=== PATIENT | male | born 1970 | race Hispanic/Latino ===

== ENCOUNTER 2017-04-01 11:58 | Inpatient (IN) | payer OTHER ==
[2017-04-01] MEDS ORDERED: Multivitamin (MVI) 10 ML, Thiamine 100 MG, Folic Acid 1 MG in Sodium Chloride 0.9% 1,00... IV ONE (12:51)
[2017-04-01 12:52] VITALS: BMI 22.4
[2017-04-01] MEDS ORDERED: Labetalol 5 mg/ml Inj 20ML IV STA (12:56)
[2017-04-01] MEDS ORDERED: Labetalol 5 mg/ml Inj 20ML IVP ONE (13:04)
[2017-04-01 13:54] LABS: BASO # 0.09 K/mm3 (0.0-2.0); BASO % 0.7 % (0.0-3.0); EOS # 0.1 (0.0-0.7); EOS % 0.5 % (1.5-5.0); GRAN # 8.22 (1.4-6.5); GRAN % 64.4 % (50.0-68.0); HEMOGLOBIN 16.2 g/dL (14.0-18.0); LYMPH # 3.3 (1.2-3.4); LYMPH % 25.6 % (22.0-35.0); MEAN CELL VOLUME 88.2 fl (80.0-105.0); MEAN CORPUSCULAR HEMOGLOBIN 31.8 pg (25.0-35.0); MEAN CORPUSCULAR HGB CONC 36.1 g/dl (31.0-37.0); MEAN PLATELET VOLUME 9.5 fl (7.0-11.0); MONO # 1.1 (0.1-0.6); MONO % 8.8 % (1.0-6.0); RBC 5.09 10^6/uL (3.5-6.1); RED CELL DISTRIBUTION WIDTH 13.5 % (11.5-14.5); WHITE BLOOD COUNT 12.8 10^3/ul (4.5-11.0)
--- NOTE | 2017-04-01 13:54 | ED PDOC ---
Arrival/HPI - General Chief Complaint: Alcohol Ingestion Time Seen by Provider: 04/01/17 12:48 Historian: Patient - History of Present Illness Narrative History of Present Illness (Text): 04/01/17 13:53 46yo male with PMHx of hypertension, alcohol abuse and anxiety present with complaint of dizziness, tremor, nausea. states he drank for a week straight and then try to stop, thinks he is withdrawing. States he came before it gets worse. States he usually gets bad withdrawal symptoms. He states his last alcohol was 2hours ago. He denies chest pain, SOB, diaphoresis, any other complaint. Past Medical History - Provider Review Nursing Documentation Reviewed: Yes - Infectious Disease Hx of Infectious Diseases: None - Cardiac Hx Hypertension: Yes - Pulmonary Hx Tuberculosis: No - Neurological HX Cerebrovascular Accident: No Hx Seizures: No - Hematological/Oncological Hx Cancer: No - Genitourinary/Gynecological Hx Sexually Transmitted Diseases: No - Psychiatric Hx Anxiety: Yes Hx Depression: Yes Hx Substance Use: Yes Other/Comment: Alcohol abuse - Surgical History Hx Breast Biopsy: Yes Hx Orthopedic Surgery: Yes (RT [facility]) - Anesthesia Hx Anesthesia: Yes Hx Anesthesia Reactions: No Family/Social History - Physician Review Nursing Documentation Reviewed: Yes Family/Social History: Unknown Family HX Smoking Status: Heavy Smoker > 10 Cigarettes Daily Hx Alcohol Use: Yes Hx Substance Use: Yes Substance used: Cocaine on sunday Allergies/Home Meds Allergies/Adverse Reactions: Allergies No Known Allergies Allergy (Verified 04/01/17 12:58) Home Medications: Home Meds Medication Instructions Recorded Confirmed Venlafaxine [Effexor XR] 1 tab PO DAILY 06/21/16 06/21/16 Gabapentin [Neurontin] 300 mg PO Q6 04/01/17 04/01/17 Propranolol [Inderal] 20 mg PO TID 04/01/17 04/01/17 cloNIDine [clonidine HCl] 0.1 mg PO TID 04/01/17 04/01/17 hydrALAZINE [Apresoline] 1 tab PO BID 04/01/17 04/01/17 Review of Systems - Physician Review All systems were reviewed & negative as marked: Yes - Review of Systems Constitutional: Normal Eyes: Normal ENT: Normal Respiratory: Normal Cardiovascular: Normal Gastrointestinal: Nausea. absent: Abdominal Pain, Constipation, Diarrhea, Vomiting, Hematochezia, Hematemesis Genitourinary Male: Normal Musculoskeletal: Normal Skin: Normal Neurological: Dizziness Endocrine: Normal Hemo/Lymphatic: Normal Psychiatric: Normal Physical Exam Vital Signs Reviewed: Yes Vital Signs Temp Pulse Resp BP Pulse Ox 04/01/17 16:22 98 F 75 20 164/98 H 98 04/01/17 16:09 100 H 160/102 H 04/01/17 16:06 106 H 168/106 H 04/01/17 15:47 87 180/110 H 04/01/17 15:10 75 160/100 H 04/01/17 14:01 108/105 H 04/01/17 13:54 79 202/102 H 04/01/17 13:40 98.8 F 79 20 202/109 H 99 Temperature: Afebrile Blood Pressure: Hypertensive Pulse: Regular Respiratory Rate: Normal Appearance: Positive for: Well-Appearing, Non-Toxic, Comfortable Pain Distress: None Mental Status: Positive for: Alert and Oriented X 3 - Systems Exam Head: Present: Atraumatic, Normocephalic Pupils: Present: PERRL Extroacular Muscles: Present: EOMI Conjunctiva: Present: Normal Mouth: Present: Moist Mucous Membranes Neck: Present: Normal Range of Motion Respiratory/Chest: Present: Clear to Auscultation, Good Air Exchange. No: Respiratory Distress, Accessory Muscle Use Cardiovascular: Present: Regular Rate and Rhythm, Normal S1, S2. No: Murmurs Abdomen: Present: Normal Bowel Sounds. No: Tenderness, Distention, Peritoneal Signs Back: Present: Normal Inspection Upper Extremity: Present: Normal Inspection. No: Cyanosis, Edema Lower Extremity: Present: Normal Inspection. No: Edema Neurological: Present: GCS=15, CN II-XII Intact, Speech Normal Skin: Present: Warm, Dry, Normal Color. No: Rashes Psychiatric: Present: Alert, Oriented x 3, Normal Insight, Normal Concentration Medical Decision Making ED Course and Treatment: 04/01/17 19:55 PT present tachy and hypertensive. he was withdrawing from alcohol. Lab was unremarkable. Pt will be admitted. His BP was fairly controlled with antihypertensvie. Case was DW Dr. Ashton and he accepted pt tp his service. EKG sinus tachy @ 123bpm - Lab Interpretations Lab Results: 04/01/17 13:35 04/01/17 13:35 Lab Results 04/01/17 13:35: Urine Opiates Screen Negative, Urine Methadone Screen Negative, Ur Barbiturates Screen Negative, Ur Phencyclidine Scrn Negative, Ur Amphetamines Screen Negative, U Benzodiazepines Scrn Negative, U Oth Cocaine Metabols Negative, U Cannabinoids Screen Negative 04/01/17 13:35: Alcohol, Quantitative 200 H 04/01/17 13:35: Salicylates < 1 L, Acetaminophen < 10.0 L 04/01/17 13:35: Sodium 138, Potassium 3.5 L, Chloride 93 L, Carbon Dioxide 28, Anion Gap 21 H, BUN 9, Creatinine 0.8, Est GFR ( Amer) > 60, Est GFR (Non -Af Amer) > 60, Random Glucose 114 H, Calcium 9.5, Total Bilirubin 0.8, AST 44, ALT 46, Alkaline Phosphatase 88, Lactate Dehydrogenase 674, Total Creatine Kinase 76, Troponin I 0.02, Total Protein 7.5, Albumin 4.6, Globulin 3.0, Albumin/Globulin Ratio 1.5 04/01/17 13:35: Urine Color Yellow, Urine Appearance Clear, Urine pH 6.5, Ur Specific [place] 1.010, Urine Protein Trace H, Urine Glucose (UA) Negative, Urine Ketones Negative, Urine Blood Negative, Urine Nitrate Negative, Urine Bilirubin Negative, Urine Urobilinogen 0.2, Ur Leukocyte Esterase Negative, Urine RBC Negative, Urine WBC 2 - 5, Ur Epithelial Cells 4 - 5, Urine Bacteria Many 04/01/17 13:35: WBC 12.8 H, RBC 5.09, Hgb 16.2, Hct 44.9, MCV 88.2, MCH 31.8, MCHC 36.1, RDW 13.5, Plt Count 319, MPV 9.5, Gran % 64.4, Lymph % (Auto) 25.6, [place] % (Auto) 8.8 H, Eos % (Auto) 0.5 L, Baso % (Auto) 0.7, Gran # 8.22 H, Lymph # 3.3, [place] # 1.1 H, Eos # 0.1, Baso # 0.09 - Medication Orders Current Medication Orders: Clonazepam (Klonopin) 1 mg PO BID ALESSANDRO Last Admin: 04/01/17 18:09 Dose: 1 mg Behavioural Document 04/01/17 18:09 MV (Rec: 04/01/17 18:09 MV [id number]) Maintenance Maintenance Dose Yes Enoxaparin Sodium (Lovenox) 40 mg SC DAILY ALESSANDRO PRN Reason: Protocol Last Admin: 04/01/17 18:09 Dose: 40 mg Subcutaneous Administrations Document 04/01/17 18:09 MV (Rec: 04/01/17 18:09 MV [id number]) Charges for Administration # of Subcutaneous Administrations 1 Hydralazine HCl (Apresoline) 10 mg PO Q8 ALESSANDRO Multivitamins/Vitamin C 10 ml/Thiamine HCl 100 mg/ Folic Acid 1 mg/ Sodium Chloride 1,011.2 mls @ 100 mls/hr IV ONCE ONE Stop: 04/01/17 22:57 Last Admin: 04/01/17 14:12 Dose: 100 mls/hr eMAR Start Stop Document 04/01/17 14:12 GMI (Rec: 04/01/17 14:12 GMI [id number]) Intravenous Solution Start Date 04/01/17 Start Time 14:12 Lorazepam (Ativan) 1 mg IM TID PRN; Protocol PRN Reason: Agitation Propranolol HCl (Inderal) 20 mg PO Q8 ALESSANDRO Thiamine HCl (Vitamin B1 Inj) 100 mg IM DAILY ALESSANDRO Discontinued Medications Chlordiazepoxide (Librium) 25 mg PO STAT STA PRN Reason: Protocol Stop: 04/01/17 14:08 Last Admin: 04/01/17 14:18 Dose: 25 mg Clonidine HCl (Catapres) 0.1 mg PO STAT STA Stop: 04/01/17 15:39 Last Admin: 04/01/17 15:47 Dose: 0.1 mg MAR Pulse and Blood Pressure Document 04/01/17 15:47 GMI (Rec: 04/01/17 15:48 GMI [id number]) Pulse Pulse Rate (60-90) 87 Blood Pressure Blood Pressure (100/60-150/90) 180/110 Hydralazine HCl (Apresoline) 10 mg IVP STAT STA Stop: 04/01/17 16:07 Last Admin: 04/01/17 16:09 Dose: 10 mg IVP Administration Document 04/01/17 16:09 GMI (Rec: 04/01/17 16:10 I [id number]) Charges for Administration # of IVP Administrations 1 MAR Pulse and Blood Pressure Document 04/01/17 16:09 GMI (Rec: 04/01/17 16:10 I [id number]) Pulse Pulse Rate (60-90) 100 Blood Pressure Blood Pressure (100/60-150/90) 160/102 Labetalol HCl (Trandate) 20 mg IVP ONCE ONE Stop: 04/01/17 13:05 Last Admin: 04/01/17 13:54 Dose: 20 mg IVP Administration Document 04/01/17 13:54 GMI (Rec: 04/01/17 13:55 I [id number]) Charges for Administration # of IVP Administrations 1 MAR Pulse and Blood Pressure Document 04/01/17 13:54 GMI (Rec: 04/01/17 13:55 [id number] Pulse Pulse Rate (60-90) 79 Blood Pressure Blood Pressure (100/60-150/90) 202/102 Lorazepam (Ativan) 2 mg IM STAT STA Stop: 04/01/17 12:52 Last Admin: 04/01/17 13:56 Dose: 2 mg IM Administration Charges Document 04/01/17 13:56 GMI (Rec: 04/01/17 13:57 [id number] Charges for Administration # of IM Administrations 1 Disposition/Present on Arrival - Present on Arrival Any Indicators Present on Arrival: No History of DVT/PE: No History of Uncontrolled Diabetes: No Urinary Catheter: No History of Decub. Ulcer: No History Surgical Site Infection Following: None - Disposition Have Diagnosis and Disposition been Completed?: Yes Diagnosis: Alcohol withdrawal, Hypertension Disposition: HOSPITALIZED Disposition Time: 16:20 Patient Plan: Admission Condition: FAIR
[2017-04-01 13:59] LABS: PH,URINE 6.5 (4.7-8.0); URINE BILIRUBIN NEGATIVE (NEGATIVE); URINE BLOOD NEGATIVE (NEGATIVE); URINE GLUCOSE (UA) NEGATIVE (NEGATIVE); URINE LEUKOCYTE ESTERASE NEGATIVE Leu/uL (NEGATIVE); URINE NITRATE NEGATIVE (NEGATIVE); URINE PROTEIN TRACE mg/dL (<30 mg/dL); URINE UROBILINOGEN 0.2 E.U./dL (<1 E.U./dL)
[2017-04-01 14:05] LABS: URINE APPEARANCE CLEAR (CLEAR); URINE COLOR YELLOW (YELLOW)
[2017-04-01 14:10] LABS: ALB/GLOB RATIO 1.5 (1.1-1.8); ALBUMIN 4.6 g/dL (3.0-4.8); ALT/SGPT 46 U/L (7-56); AST/SGOT 44 U/L (17-59); BLOOD UREA NITROGEN 9 mg/dL (7-21); CALCIUM 9.5 mg/dL (8.4-10.5); GFR AFRICAN-AMERICAN > 60; GFR NON-AFRICAN AMERICAN > 60
[2017-04-01 14:13] LABS: ACETAMINOPHEN < 10.0 ug/ml (10.0-20.0); SALICYLATE < 1 mg/dL (2.0-20.0)
[2017-04-01 14:20] LABS: TROPONIN I 0.02 ng/mL
[2017-04-01 14:31] LABS: URINE BACTERIA MANY (NEG); URINE RBC NEGATIVE /hpf (0-2)
[2017-04-01 14:39] LABS: BARBITURATES, UR NEGATIVE (NEGATIVE); BENZODIAZEPINES, UR NEGATIVE (NEGATIVE); OPIATES, UR NEGATIVE (NEGATIVE)
[2017-04-01 14:42] LABS: PHENCYCLIDINE, UR NEGATIVE (NEGATIVE)
--- NOTE | 2017-04-01 15:21 | CARD ---
APPROVED REPORT EKG Measurement Heart [id number] <Conclusion> Sinus tachycardia Otherwise normal ECG
[2017-04-01] MEDS: Enoxaparin 40 mg Syringe SC SCH (18:09)
[2017-04-02 07:21] LABS: HEMOGLOBIN 14.1 g/dL (14.0-18.0); MEAN CELL VOLUME 89.2 fl (80.0-105.0); MEAN CORPUSCULAR HEMOGLOBIN 30.6 pg (25.0-35.0); MEAN CORPUSCULAR HGB CONC 34.3 g/dl (31.0-37.0); MEAN PLATELET VOLUME 9.5 fl (7.0-11.0); RBC 4.61 10^6/uL (3.5-6.1); RED CELL DISTRIBUTION WIDTH 13.7 % (11.5-14.5); WHITE BLOOD COUNT 10.8 10^3/ul (4.5-11.0)
[2017-04-02 07:57] LABS: BLOOD UREA NITROGEN 14 mg/dL (7-21); GFR AFRICAN-AMERICAN > 60; GFR NON-AFRICAN AMERICAN > 60; MAGNESIUM 1.6 mg/dL (1.7-2.2)
[2017-04-02] MEDS: Enoxaparin 40 mg Syringe SC SCH (11:06)
[2017-04-02] MEDS: Thiamine 100 mg/ml Inj IM SCH (11:07)
[2017-04-02] MEDS ORDERED: Potassium Chloride 20 mEq ER Tab PO ONE ×2 (11:46→18:19)
[2017-04-02] MEDS: Venlafaxine 75 mg ER Cap PO SCH (15:20)
[2017-04-02] MEDS ORDERED: Magnesium Oxide 400 mg Tab UD PO SCH (18:00)
--- NOTE | 2017-04-02 23:25 | HP ---
This 46-year-old male came in with alcohol intoxication, alcohol abuse and withdrawal. The patient came into the hospital. HISTORY OF PRESENT ILLNESS: This is a 46-year-old male with history of hypertension, depression, came in to the hospital with alcohol abuse for the last few days, came in with possible withdrawal symptoms. The patient denied using any other drugs. The patient does have a history of depression. He has history of drinking alcohol. Denied any chest pain, short of breath, any vomiting, but he does feel withdrawal and he does have history of very bad withdrawal symptoms. FAMILY HISTORY: Cannot be obtained. The patient seems a little sleepy. SOCIAL HISTORY: He does smoke more than 10 cigarettes a day for more than 10 years. Alcohol use and drug use history in the past and also he did use cocaine on Sunday. ALLERGIES: NO KNOWN ALLERGY. MEDICAL HISTORY: Unknown. REVIEW OF SYSTEMS: Cannot be obtained. PHYSICAL EXAMINATION: VITAL SIGNS: Temperature is 98, heart rate 136, blood pressure 173/115, respirations 20, saturation 98%. HEAD AND NECK: Normal. No JVD. No thyromegaly. CHEST: Clear. Good air entry. CARDIAC: First and second sounds are normal. ABDOMEN: Soft and nontender. EXTREMITIES: No edema. NEUROLOGIC: Normal. LABORATORY STUDIES: Shows white count 12.8, hemoglobin 16.2, hematocrit 44.9, platelets 319. Chemistry shows sodium 138, potassium 3.5, chloride 93, bicarbonate 28, BUN 9, creatinine 0.8. Blood sugar 115. Liver function test is normal. Troponin 0.02, which is negative. The patient's EKG shows sinus tachycardia. IMPRESSION AND PLAN: 1. A 46-year-old male with history of alcohol abuse came in with withdrawal symptoms, tachycardic, hypertensive. We will give the patient Ativan 1 mg IV q.4 hours p.r.n. We will get a neuro consult, psychiatric consult to evaluate the patient too. 2. We will give thiamine B1 100 mg IM daily. We will give him banana bag. IV fluid with multiple vitamins. Also, we will resume his Inderal 20 mg t.i.d. We will give him hydralazine 10 mg q.8 hours. Continue current therapy and once his pressure gets better, we will give him the Effexor. Continue current therapy. Continue gastrointestinal and deep vein thrombosis prophylaxis. Monitor his blood pressure and we will admit him to telemetry for remote tele. Luis Felipe Ashton MD
--- NOTE | 2017-04-03 01:11 | PN ---
DATE: SUBJECTIVE: The patient came in for alcohol withdrawal, history of hypertension. Today, he still feels anxious 00:12 he is getting Ativan p.r.n. The patient also has blood pressure running high. PHYSICAL EXAMINATION: VITAL SIGNS: Today, temperature is 98, heart rate 105, blood pressure 170/120, respiratory rate 20, and saturating 99%. HEAD AND NECK: Normal. No JVD. No thyromegaly. CHEST: Clear. Good air entry. CARDIAC: First sound and second sounds are normal. ABDOMEN: Soft, nontender. EXTREMITIES: No edema. NEUROLOGIC: There is some fine tremors, but the patient seems better than yesterday. He is more awake, alert and oriented x3. CURRENT MEDICATIONS: The patient is getting hydralazine 10 mg three times a day, we will increase that to four times a day; Ativan 1 mg every 4 hours p.r.n.; Effexor 75 mg daily, he was taking 150, we will reduce it to 75 because of the blood pressure elevations; Inderal 20 mg three times a day; Klonopin 1 mg b.i.d.; the patient was given Librium today 50 mg t.i.d.; Lovenox 40 subcutaneous; Nicoderm; Protonix; vitamin B1; and Zofran for his current nausea. IMPRESSION AND PLAN: 1. Alcohol withdrawal. Continue the benzodiazepine p.r.n. We will get a Neuro consult, Psych consult to evaluate underlying psychiatric illness. The patient usually takes the alcohol under stress when he has stressful situations and get anxiety, so I did explain to him with this alcohol which is temporary and results have a bad effect on the health as well as negative withdrawal effect. 2. Hypertension, probably part of his withdrawal. We will increase hydralazine to 4 times a day, continue Inderal as it is, and we will continue Ativan every 4 hours plus his Klonopin that he is taking for anxiety. Right now, we are going to give also 50 mg p.o. t.i.d. for Librium and Ativan p.r.n., the patient seems doing okay, still feels anxious and despite of that, we will follow up with Psychiatry. We will monitor his blood pressure. His blood pressure systolic 170, we are going to give him clonidine 0.2. If he continues to have blood pressure elevation, we may give labetalol 1 dose. At this time, continue current therapy, follow up clinically. Luis Felipe Ashton MD
[2017-04-03] MEDS: Pantoprazole 40 mg EC Tab PO SCH (05:27)
[2017-04-03 09:01] LABS: BLOOD UREA NITROGEN 10 mg/dL (7-21); GFR AFRICAN-AMERICAN > 60; GFR NON-AFRICAN AMERICAN > 60; MAGNESIUM 1.9 mg/dL (1.7-2.2)
--- NOTE | 2017-04-03 10:00 | CON ---
DATE: 04/02/2017 He is being seen today in a consultation. HISTORY OF PRESENT ILLNESS: The patient is a 46-year-old white male seen at the bedside. The patient's consult was called at the request of his PMD. This particular admission was prompted by the fact that the patient had been drinking for 4 weeks straight and then tried to stop and then said he was going into withdrawal and brought himself to the Emergency Room. He has a history of alcohol abuse, hypertension, and anxiety. He was complaining of dizziness, tremor, and nausea, when he got into the hospital. He has had bad withdrawals in the past, so was afraid not to be in the hospital. The patient indicates he has a long history of alcoholism. He started drinking as a teenager, but he indicates that his current problem with alcohol got worse as of 08/20/2015. He indicated that at that point he started to drink very heavily. He was always binge drinking. He would go days at a time being heavily drunk. He has had recurrent depressions, and he indicates that social anxiety was the reason why he drinks the way he does because he does not feel comfortable unless he is drinking socially. In terms of treatment, he has been outpatient at [facility] in the [facility]. He has been to [facility] twice. He has been to [facility] and various attempts to stop drinking, but ended up relapsing afterwards. Feels at this point willing to go back in for treatment for his alcoholism at this time. The stress that is currently going on with the patient is that his and he last month and are planning to divorce. He indicates that the relationship has been going on for 14 years and it has been bad in terms of being dysfunctional for a very long time, more prompted this particular spell of drinking was that she gave away one of their dogs. He is currently living with his sister and unable to take one of their 2 dogs, so she kept one and gave the other one away which she finds very upsetting. The patient sees Dr. Machado, who is a psychiatrist at [facility]. He needs to see the doctor to get refills at this point in time. States he has been treated on Effexor, gabapentin, Remeron. He is not sure if he has his medications at [facility] or [facility], he will have to obtain that, so I can call and verify his dosages tomorrow. He indicates that his sister is very supportive with him. He has been not working very much in the past month. His insurance is through his . Medically, the patient has hypertension. He denies any current legal issues. Denies having had a DWI in the past. Denies any service. He indicates that he had one suicide attempt 2 years ago which he says was not a suicide attempt, so it was attempt to get his to understand how badly he was feeling. He took pills and did not get any treatment for that. The patient grew up in [place]. He indicates that his was . His parents when he was young and his father really was not involved with them. He has 3 sisters and he is the fourth of four, so he is the only boy and the youngest. He indicates he did okay in school. He was a normal child, said he had friends, he took part in school activities and he graduated on time. At that point, he indicates he thinks his depression started because he was in line to go to college and just did not go. 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 He indicates that he works at [employer] and [employer] as his profession at this point in time. 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 PHYSICAL EXAMINATION: MENTAL STATUS EXAM: The patient is alert and oriented x3. His eye contact is poor. His behavior is cooperative. He speech rate and volume are within normal limits. He is shaky, so at times when he gets upset, his speech is halting. He cries off and on when talking about the breakup of his marriage. His mood is anxious. His affect is constricted. His thoughts are goal directed but somewhat concrete. He denies being suicidal or homicidal at this time. He denies the presence of hallucinations, delusions, or paranoia. His concentration and focus, he indicates are poor. His memory both short and snf appears adequate. His appetite and his sleep are normalizing at this point in time. DIAGNOSTIC IMPRESSION: Major depression, recurrent, severe without psychotic features; alcohol use disorder, severe; hypertension; current withdrawal. Bee Rees APN Carmina Chen MD JENI
[2017-04-03] MEDS: Thiamine 100 mg/ml Inj IM SCH (10:12)
[2017-04-03] MEDS: Enoxaparin 40 mg Syringe SC SCH (10:14)
[2017-04-03] MEDS: Venlafaxine 75 mg ER Cap PO SCH (10:15)
[2017-04-03] MEDS ORDERED: Potassium Chloride 20 mEq ER Tab PO ONE (11:12)
--- NOTE | 2017-04-03 15:00 | PN ---
DATE: 04/03/2017 He is being seen today for followup consultation. PRESENTATION: The patient is a 46-year-old white male seen at bedside for followup consultation today. Original consultation had been requested by his PMD due to client's history of depression and alcoholism. The patient physically continues to have some shaking. He is not sweating as he was yesterday, but physiologically, he appears to continue to be withdrawing. He recently had a dose of Ativan and his hands are still a little bit shaky. PHYSICAL EXAMINATION: VITAL SIGNS: His current vital signs include temperature of 97.3, pulse rate of 86. blood pressure of 159/99, and respiratory rate of 21 with an O2 sat of 98%. The patient is being followed for blood pressure stabilization. The patient indicates that he continues depressed. He denies being suicidal, but he is feeling very depressed over his situation. He is not sure whether he should come inpatient or not and he was worried about who else might be on the unit and whether or not it was a good idea for him to come in. He is vacillating now between wanting to start him voluntarily or changing his mind. He additionally had evidently according to nurse's notes an upset last night because he wanted to go home and smoke. He was given a nicotine patch, which he is continuing today, but that seems to be factor decision as well. He is a heavy smoker plus he over uses caffeine as well. MENTAL STATUS EXAMINATION: The patient is alert. He is oriented x3. His eye contact is fair. His behavior is cooperative. His speech rate and volume are within normal limits. Mood is sad. Affect is constricted. Thoughts are goal directed, but concrete. He denies being suicidal or homicidal. He denies the presence of hallucinations, delusions or paranoia. His concentration is focused, impaired. His memory, both short and [facility] is adequate. His appetite and his sleep he indicates are normalizing. DIAGNOSTIC IMPRESSION: Major depression, recurrent, severe without psychotic features, alcohol use disorder, severe, chronic ongoing, hypertension, current alcohol withdrawal. PLAN: The patient has been seeing a psychiatrist a year ago Dr. Waller that he would plan to continue his medications with. He is on currently Klonopin 1 mg p.o. b.i.d., gabapentin 300 mg 1 p.o. t.i.d., propranolol 20 mg 1 p.o. t.i.d., and venlafaxine XR 75 mg 1 p.o. daily. The patient was offered inpatient admission. He is vacillating back and forth at this time as to whether he wants to do that. He is not suicidal and he is not homicidal. He does not appear to in any imminent danger to himself or others, so he can choose whether not he wants to come. Psychiatrically, once he is medically cleared, please let us know, he plans to come onto the unit, otherwise, we will sign off. Bee Rees APN Carmina Chen MD JENI
--- NOTE | 2017-04-03 17:16 | CON ---
DATE: 04/03/2017 NEUROLOGY CONSULT CHIEF COMPLAINT: Alcohol withdrawal and anxiety. HISTORY OF PRESENT ILLNESS: This is a 46-year-old man with past medical history of hypertension, chronic alcohol abuse, and anxiety, presenting with lightheadedness, tremors of his extremities, was nauseous. He has been drinking one week straight and then trying to stop, he was withdrawing. He came with alcohol level over 200 and elevated systolic and diastolic blood pressures, which is likely from his underlying alcohol withdrawal and was mildly diaphoretic. Currently, Psychiatry has seen him, recommend that he has major depression with alcohol disorder and recommend gabapentin 300 mg p.o. t.i.d. and Klonopin as well as venlafaxine, which I agree with. Very flat affect, otherwise, he is following commands, moving all extremities. PAST MEDICAL HISTORY: Hypertension, chronic alcohol abuse, and anxiety. SOCIAL HISTORY: Drinks daily, occasional smoker. No illicit drug use. REVIEW OF SYSTEMS: A 14-point review of systems is negative except as per the HPI. ALLERGIES: NO KNOWN DRUG ALLERGIES. MEDICATIONS: Reviewed by the nurse per reconciliation sheet. LABORATORY DATA: Alcohol level more than 200. Sodium is 136, potassium 3.4, chloride 97, carbon dioxide 29, BUN of 10, creatinine 0.9, and random glucose 91. PHYSICAL EXAMINATION: VITAL SIGNS: Temperature 98.4, pulse rate 97, blood pressure 150/95, respiratory rate 18. GENERAL: Patient is sitting up in bed, in no acute distress. HEENT: Atraumatic and normocephalic. PERRLA. Extraocular muscles intact. NECK: Supple. No JVD, no adenopathy noted. LUNGS: Clear to auscultation. No adventitious sounds. HEART: S1, S2. Normal rate and rhythm. No murmurs, rubs, or gallops. ABDOMEN: Soft, nontender, and nondistended. Bowel sounds present. EXTREMITIES: No clubbing, no cyanosis. Peripheral pulses 2+ felt bilaterally. NEUROLOGIC: Patient is alert, oriented to person, place, month, and year. Speech is fluent without any error. His speech rate and volume are within normal limits. Mood is sad. Affect is constricted. Thoughts and goals are directed, but concrete. No hallucinations. His concentration is focused, but impaired. 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 Cranial nerves II through XII intact. Motor: Moves all extremities equally. Toes are downgoing bilaterally. Sensory: Light touch, pinprick, proprioception, and vibration is intact. DTRs are 2+ throughout. Coordination: [id number] intact. Gait is deferred for now. ASSESSMENT AND PLAN: This is a 46-year-old man with history of anxiety disorder, hypertension, chronic alcohol abuse, came in because he was tremulous and dizzy and was very hypertensive and tachycardic. I was called to evaluate. He is undergoing alcohol withdrawal with alcohol level of 200 and was hypertensive secondary to alcohol withdrawal and looks like he has features of depression, Psychiatry is on board. At this time, I recommend: 1. Gabapentin 300 mg p.o. t.i.d., which are helping with his anxiety. 2. Klonopin 1 mg p.o. b.i.d., which also helps anxiety. 3. Follow with Psychiatry and recommend venlafaxine extended release 75 mg p.o. daily and recommend more psychiatric management rather than neurologic. At this time, he is clinically stable from my standpoint. Continue with thiamine 100 mg p.o. t.i.d. and multivitamins and hydration. Dc Marquez MD
--- NOTE | 2017-04-03 19:02 | PN ---
DATE: SUBJECTIVE: The patient was seen for followup today with advanced nurse practitioner, Cabrera, please see her notes for more detailed information. The patient presented to be depressed related to the fact that he is in the process of divorce. The patient also reported that his put him down each and every time and also making him feel suicidal. The patient reported that at present moment, he still feels withdrawal from the alcohol, observed to have mild tremor. The patient is compliant with the medications as well as treatment plan. In regards of depressive symptoms, the patient reported to feel hopeless and helpless, but denied any thoughts of harming himself. MEDICATIONS: Reviewed. The patient is on Librium 50 mg three times a day, this production underwriter will suggest to increase Librium to 50 mg four times a day instead of giving two benzodiazepines as well as the patient is on Effexor 75 mg daily, which could help him in regards of depressive symptoms as well as anxiety. This production underwriter would also suggest to have thiamine to be continued as well as folic acid and multivitamins. LABORATORY DATA: This production underwriter also reviewed labs seems to be within normal limits, has some potassium level low 3.4. Toxicology, alcohol level was 200. The patient reported that he was drinking for past 2 weeks nonstop. The patient never been on naltrexone before. PAST PSYCHIATRIC HISTORY. The patient reported that he was admitted to the psychiatric inpatient unit multiple times. The patient also reported being in detox and rehabs, most recently was 3 months ago in [facility] and reported that he was sober for 2 months and relapsed 1 month ago. The patient has history of overdosing on medications, two to three suicidal attempts in the past. OBJECTIVE: VITAL SIGNS: Reviewed. Temperature 98.4, pulse is 81, blood pressure is elevated 153/100, respirations , and saturation is 96. MENTAL STATUS EXAM: The patient presented to be depressed, has upper extremities shakes. Anxious looking martin, multiple tattoos, and intermittent eye contact. Mood described as hopeless. Affect was constricted. Mood congruent. Thought process concrete. Thought content, the patient denied visual, auditory, or tactile hallucinations. Denied paranoid ideations. The patient denied thoughts of harming himself or others. Denied intent or plan. Insight and judgment seems to be improving. Impulses are better controlled. IMPRESSION: As per history, the patient has diagnosis major depressive disorder as well as alcohol use disorder, binge drinking, and alcohol withdrawal symptoms. PLAN: This production underwriter increase the dose of Librium, Klonopin was discontinued, multivitamins, thiamine and folic acid. Psychiatric admission was offered. The patient wants to think about that. Please see nurse practitioner note for more detailed information. Agree with plan and diagnosis. We will follow up and advise accordingly. Thank you very much for letting me to participate in the care of your patient. Carmina Chen MD
--- NOTE | 2017-04-04 05:04 | PN ---
DATE: 04/03/2017 SUBJECTIVE: The patient is doing better. He still feels very anxious, seen by Psychiatry, otherwise clinically better. PHYSICAL EXAMINATION: VITAL SIGNS: Temperature is 98, blood pressure is 169/113, heart rate 86, saturating 98% on room air, and respirations 21. HEENT: Normal. NECK: No JVD. No thyromegaly. CHEST: Clear with good air entry. CARDIAC: First sound and second sound normal. ABDOMEN: Soft, nontender. EXTREMITIES: No edema. NEUROLOGIC: Normal. LABORATORY DATA: Sodium 136, potassium 3.4, chloride 97, bicarb 29, BUN 10, creatinine 0.9. IMPRESSION AND PLAN: 1. Alcohol withdrawal syndrome, continue Ativan and benzodiazepine, seems doing better. 2. Hypertension, still elevated. We will increase hydralazine to 20 mg t.i.d. and clonidine 0.1 p.r.n. for systolic 170 and above and continue Inderal 20 mg p.o. 8 hours. 3. Smoker. Continue Nicoderm. 4. Anxiety, depression. We will continue his Ativan. The patient also is getting Librium 50 mg 4 times a day. We will monitor him clinically, and we will follow up on his conditions. Continue Effexor, continue aspirin, Zofran p.r.n., for associated nausea and Protonix 40 mg daily. Continue gastrointestinal and deep venous thrombosis prophylaxis. The patient may need to be transferred to Psych floor when he is medically stable. Also, we will replace the potassium. Luis Felipe Ashton MD
[2017-04-04] MEDS: Pantoprazole 40 mg EC Tab PO SCH (06:02)
[2017-04-04] MEDS: Multivitamin With Minerals Tab PO SCH (10:21)
[2017-04-04] MEDS: Thiamine 100 mg/ml Inj IM SCH (10:21)
[2017-04-04] MEDS: Venlafaxine 75 mg ER Cap PO SCH (10:21)
[2017-04-04] MEDS: Enoxaparin 40 mg Syringe SC SCH (10:23)
[2017-04-05] MEDS: Pantoprazole 40 mg EC Tab PO SCH (05:06)
[2017-04-05] MEDS: Multivitamin With Minerals Tab PO SCH (08:41)
--- NOTE | 2017-04-05 08:45 | CON ---
DATE: 04/04/2017 He is being seen today for a followup consultation and the date is 04/04/2017. PRESENTATION: The patient is a 46-year-old male, tall in stature and average build, seen at bedside. Patient is being seen in followup consult. He has been consulted and originally was then called for a followup on his alcoholism from his primary medical doctor. He was admitted from the emergency room after having presented with alcohol withdrawal and anxiety indicating that he had been drinking for about 10 days straight and then tried to stop drinking and he was into withdrawal, so this is why he admitted himself. Patient came in on the . His symptoms of withdrawal has been improving. When seen today, he is not shaking, he is not sweating, and he indicates that physically, he is much more comfortable. The issue with this patient is that he is very addictive to cigarettes. He is very preoccupied with going outside and sneaking outside can he go outside to have a cigarette. He additionally indicates he overuses caffeine and that is another issue. He has been educated to the fact that this will add to his chronic anxiety, but these are two issues that are making it difficult for client to focus well in the hospital. He vacillates [id number] between wanting to be admitted voluntarily to the Psych Unit and changing his mind. His biggest concern seems to be the type of other people on the unit rather than what he might be going there to deal with. He does indicate that he is depressed at this time and he is anxious, but he feels that he just is not sure whether or not he wants to be admitted psychiatrically. PHYSICAL EXAMINATION: VITAL SIGNS: His current vital signs include blood pressure of 147/108 and a pulse rate of 82. His blood pressure has been running high. MENTAL STATUS EXAM: Patient is alert and oriented x3. His eye contact is poor. His behavior is cooperative. Speech rate and volume are within normal limits. Mood is anxious. Affect is constricted. Thoughts are goal directed, but somewhat concrete. Patient denies being suicidal or homicidal. He denies the presence of hallucinations, delusions, or paranoia. His concentration and focus are poor which he indicates is a long-term problem. His memory, both short and intermediate, appears to be adequate. His appetite, he indicates is poor. He is still having some nausea; however, his sleep is improving. LABORATORY DATA: Nursing notes and labs were reviewed. PLAN: Patient, at this time, is not certain whether or not he wants to be admitted to the Inpatient Psychiatric Unit. He is not suicidal or homicidal and appears in no imminent danger of hurting himself or others. So, we will continue to follow and see what he chooses. His medications have been adjusted; he was on Remeron, outpatient, 30 mg at bedtime that was added today and that will be helpful with patient's mood, anxiety, and sleep. His Ativan p.r.n. ordered stands, but Librium 50 mg one p.o. q.i.d. was added to stabilize his withdrawal symptoms. He additionally psychiatrically continues on venlafaxine XR 75 mg one daily. He takes propranolol, Inderal 20 mg one p.o. q. 8 hours for his anxiety. He additionally is on a nicotine patch which is not helping as much as it might be hoped for the nicotine withdrawal that he is experiencing. The lorazepam ordered for 2 mg IV every six hours p.r.n. withdrawal symptoms continues. We will continue to follow. Thank you for this consult. Bee Rees APN
[2017-04-05] MEDS: Enoxaparin 40 mg Syringe SC SCH (10:53)
[2017-04-05] MEDS: Thiamine 100 mg/ml Inj IM SCH (10:53)
[2017-04-05] MEDS: Venlafaxine 75 mg ER Cap PO SCH (10:54)
--- NOTE | 2017-04-05 11:10 | PN ---
DATE: 04/04/2017 SUBJECTIVE: The patient is a 46-year-old male. The patient is sitting comfortably. He still feel anxious and feel depressed. His tremors are much better and much less. The patient otherwise seems doing well and comfortable. PHYSICAL EXAMINATION: GENERAL: The patient looked depressed, . VITAL SIGNS: As follows: Temperature 97.4, heart rate 87, blood pressure 147/108, respirations 26, and saturation 95%. HEAD AND NECK: Normal. No JVD. No thyromegaly. CHEST: Clear with good air entry. CARDIAC: First sound and second sound normal. ABDOMEN: Soft and nontender. EXTREMITIES: No edema. NEUROLOGIC: Normal. LABORATORY DATA: No labs for today. IMPRESSION AND PLAN: 1. Acute alcohol withdrawal syndrome. Continue current therapy including Librium 50 mg 4 times a day, seems helping him and also Ativan IV p.r.n., which has been increased to 2 mg IV q. 6 hours. 2. Hypertension. Continue hydralazine, which is recently increased from 10 to 20 t.i.d. Continue clonidine p.r.n. for systolic 170 and above, chlorthalidone 25 mg daily, Inderal 20 mg t.i.d., and will follow up on that, which seems helping more in addition to control his withdrawal with the other medications. 3. Depression and anxiety. The patient is getting benzodiazepine, however, he is getting Effexor. We will increase his Effexor, as his blood pressure is better to 150, as the patient seems more depressed and he has been taken 150 before. We will also do Psychiatry evaluation, will probably suggest to admit the patient to Psychiatry floor for few days to help his mood treatment. 4. Nicotine addictions, cigarettes smoking. Using Nicoderm CD. We will discuss there is a risk of smoking. I discussed with him that he need to be monitored closely because he is depressed and he is taking alcohol to feel better, so we need to treat the depression much better than this to avoid recurrent alcohol intoxications. Continue current therapy. Followup clinically. Luis Felipe Ashton MD
--- NOTE | 2017-04-05 21:20 | PN ---
DATE: SUBJECTIVE: A 46-year-old male, alcohol withdrawal. The patient feels depressed. He does have a history of psych problems and will revaluate by psychiatrist for admission to psych floor. PHYSICAL EXAMINATION: VITAL SIGNS: Temperature 97.6, heart rate 79, blood pressure 135/91, respirations 20, saturations 100%. HEAD AND NECK: Normal. No JVD. No thyromegaly. CHEST: Clear. Good air entry. CARDIAC: First sound and second sound normal. ABDOMEN: Soft, nontender. EXTREMITIES: No edema. NEUROLOGIC: Normal. IMPRESSION AND PLAN: 1. Alcohol withdrawal syndrome. Continue benzodiazepines. Continue Librium. The patient seems doing okay with Ativan p.r.n. and Librium. He is also getting Inderal, which controls his heart rate and blood pressure. 2. Hypertension, on multiple medications. Continue hydralazine 20 mg t.i.d. Continue clonidine p.r.n. Continue chlorthalidone 25 mg p.o. daily. Continue Inderal 20 mg q. 8 hours. The patient also should follow up as outpatient for that. 3. Depression. The patient has a history of depressing and he has been treating himself with alcohol for underlying depression and medications. Needs further psychiatric evaluation and treatment. Continue Remeron. Continue Effexor, Librium, Ativan. Follow up in Psychiatry floor. Probably needs to be admitted. Luis Felipe Ashton MD
[2017-04-06] MEDS: Pantoprazole 40 mg EC Tab PO SCH (06:16)
[2017-04-06 07:49] LABS: BLOOD UREA NITROGEN 14 mg/dL (7-21); CALCIUM 9.2 mg/dL (8.4-10.5); GFR AFRICAN-AMERICAN > 60; GFR NON-AFRICAN AMERICAN > 60
[2017-04-06] MEDS: Multivitamin With Minerals Tab PO SCH (08:24)
--- NOTE | 2017-04-06 09:20 | CON ---
DATE: 04/05/2017 He is being seen today for a followup consultation. PRESENTATION: The patient is a 46-year-old male seen at bedside. The patient today indicates that physically he is feeling better. This is a followup consultation, consultation was originally ordered per his MD with concerns about his chronic alcoholism. The patient was admitted to the hospital because he had been on a binge, trending for about 10 days and he started having withdrawal. He was admitted on 04/01/2017. The patient has a history of hypertension and a long history of alcohol abuse, mostly binge drinking. He has been on multiple facilities, but has not been able to stay sober. He also concurrently is depressed. He sees Dr. Waller, a Psychiatrist in [facility] for his psychiatric medication; however, he can no longer afford to go to him, so he is being given a referral for outpatient practitioner in this area. The patient continues to complain of depression. He denies being suicidal. He indicates that he is trying to figure out which sisters house he is go to stay with when he is discharged. He vacillates back and forth still about whether or not he wants to go on Psychiatric Inpatient Unit. CURRENT VITAL SIGNS: Temperature of 97.6, pulse rate of 79, blood pressure of 135/91, respiratory rate of 20, and an O2 saturation of 100%. The patient's blood pressure is normalizing from other days. CURRENT MEDICATIONS: Psychiatrically are gabapentin 300 mg 1 p.o. t.i.d., mirtazapine 30 mg 1 p.o. at bedtime. He is on a Nicoderm CQ 1 patch daily, propanolol 20 mg 1 p.o. t.i.d., venlafaxine ER/XR 75 mg 1 p.o. daily. He continues on his Librium 50 mg 1 p.o. four times a day for his withdraw. MENTAL STATUS EXAM: The patient is alert and oriented x3. His eye contact is poor. His behavior is cooperative. His speech rate and volume are within normal limits. Mood is blunted. Affect is constricted. Thoughts are goal directed, but there is little spontaneous conversation he has, answers questions asked of him, but does not really have more to any conversation. He denies being suicidal or homicidal. He denies the presence of hallucinations, delusions or paranoia. His concentration and his focus, he indicates are impaired, but this is not a suitable long-term issue. His appetite is normalizing and he is sleeping better. DIAGNOSTIC IMPRESSION: Major depression, recurrent, severe without psychotic features, alcohol dependent, current withdrawal. PLAN: any longer afford his Psychiatrist in [facility]. Once he is medically cleared, the patient wished to come up on the Inpatient Unit. Please let us know if he is willing to sign in, he can be admitted. Thank you very much for this consult, otherwise we will sign off. Bee Rees APN
[2017-04-06] MEDS: Thiamine 100 mg/ml Inj IM SCH (10:20)
[2017-04-06] MEDS: Enoxaparin 40 mg Syringe SC SCH (10:20)
[2017-04-06] MEDS: Venlafaxine 75 mg ER Cap PO SCH (10:20)
[2017-04-06] MEDS: Potassium Chloride 20 mEq ER Tab PO SCH (11:17)
--- NOTE | 2017-04-06 22:23 | CON ---
DATE: HISTORY OF PRESENT ILLNESS: The patient is a 46-year-old white male who has been seen by Psychiatry due to concerns by his primary care doctor about his chronic alcoholism. The patient was seen by Bee Rees APN yesterday and followed by his provider this morning. The patient continues to report that he is depressed; however, he is not suicidal, he is not hopeless, continues to besilate about or not he wants to go to the psychiatric inpatient unit, though at this time appears to be against this idea. He is not hallucinating, has been in fair control in the unit, tolerating his medications. Denies any pain, coherent, not respond to internal stimuli and inclusions were no elicited. Insight and judgment considered to be fair. The patient is quite aware of his alcoholism. RELEVANT PSYCHIATRIC MEDICATIONS: Include Librium 50 mg p.o. q. 8 h. scheduled, Neurontin 300 mg p.o. t.i.d., Ativan 2 mg IV q. 6 h. p.r.n., Remeron 30 mg at bedtime, and Effexor XR 75 mg daily. IMPRESSION: Major depression, moderate; alcohol use disorder, severe; with a contribution of substance-induced mood disorder. We will continue with current treatment and plan. The patient may find himself into voluntarily to psychiatric unit if that is what he prefers once he is medically cleared. However, if he is medically clear, he would like to be discharged mental health referral or his alcoholism as well as psychiatric symptoms. He needs to be continued on current medications in that regard. Medicine to continue to taper his benzodiazepine as tolerated for alcohol withdrawal. Sandro Barrios MD
--- NOTE | 2017-04-07 05:24 | PN ---
DATE: SUBJECTIVE: The patient seems doing better, less tremory, still feels depressed and anxious. He does not have any chest pain, no shortness of breath, no nausea, no vomiting, no other complaints. He feel a lot better regarding his alcohol withdrawal symptoms. Seen by psychiatrist and will be going to Psych floor. PHYSICAL EXAMINATION: VITAL SIGNS: Today, his temperature is 97.8, heart rate 92, blood pressure 138/91, respirations 21, saturation 99%. HEAD AND NECK: Normal. No JVD. No thyromegaly. CHEST: Clear, good air entry. CARDIAC: First sound and second sound normal. ABDOMEN: Soft, nontender. EXTREMITIES: No edema. NEUROLOGIC: Normal. LABORATORY STUDY: Sodium 140, potassium 3.4, chloride 101, bicarbonate 29, BUN 14, creatinine 0.9. IMPRESSION AND PLAN: 1. Alcohol withdrawal symptoms. Continue benzodiazepine. The patient getting Librium 50 mg four times a day, we will decrease it to three times a day and will continue monitor his symptoms. The patient is also getting Ativan p.r.n. 2 mg intravenously q.6 hours. 2. Hypertension. Continue hydralazine 20 t.i.d. He is getting also chlorthalidone, Inderal and seems doing well. We will continue current medicines. He is also on clonidine p.r.n. 3. Depression and anxiety. Continue benzos, Effexor 75 plus Remeron. The patient seen by psychiatrist, will be going to Psychiatry floor. Continue multivitamin. Continue thiamine. Continue gastrointestinal and deep venous thrombosis prophylaxes. Neurontin 300 mg t.i.d. uLis Felipe Ashton MD
[2017-04-07] MEDS: Pantoprazole 40 mg EC Tab PO SCH (05:38)
[2017-04-07] MEDS: Potassium Chloride 20 mEq ER Tab PO SCH (10:00)
[2017-04-07] MEDS: Enoxaparin 40 mg Syringe SC SCH (10:00)
[2017-04-07] MEDS: Thiamine 100 mg/ml Inj IM SCH (10:00)
[2017-04-07] MEDS: Multivitamin With Minerals Tab PO SCH (10:01)
[2017-04-07] MEDS: Venlafaxine 75 mg ER Cap PO SCH (10:01)
[2017-04-07 22:46] VITALS: O2SAT 97
[2017-04-08] MEDS: Pantoprazole 40 mg EC Tab PO SCH (05:34)
[2017-04-08] MEDS: Multivitamin With Minerals Tab PO SCH (08:51)
[2017-04-08] MEDS: Potassium Chloride 20 mEq ER Tab PO SCH (08:51)
[2017-04-08] MEDS: Thiamine 100 mg/ml Inj IM SCH (11:59)
[2017-04-08 12:00] VITALS: RESP 20; TEMP 97.5
[2017-04-08] MEDS: Venlafaxine 75 mg ER Cap PO SCH (12:00)
[2017-04-08] MEDS: Enoxaparin 40 mg Syringe SC SCH (12:02)
[2017-04-08 15:26] VITALS: BP 109/78; PULSE 86
--- NOTE | 2017-04-09 22:42 | DS ---
HISTORY OF PRESENT ILLNESS: The patient was admitted with alcohol withdrawal symptoms and blood pressure uncontrolled. The patient seen by psychiatrist. There is no suicidal ideations. The patient is comfortable. Mood is stable at this time and he seems doing okay. We will discharge him home. The patient has no chest pain. No short of breath. Hemodynamically stable. PHYSICAL EXAMINATION: VITAL SIGNS: Temperature is 97.6, heart rate 79, blood pressure 131/82, and respirations 18. HEAD AND NECK: Normal. No JVD. No thyromegaly. CHEST: Clear. Good air entry. CARDIAC: First sound and second sound normal. ABDOMEN: Soft and nontender. EXTREMITIES: No edema. NEUROLOGIC: Normal. IMPRESSION: 1. Alcohol withdrawal syndrome. 2. Hypertension, uncontrolled. 3. Electrolyte abnormalities. 4. Depression. PLAN: 1. Discharge home. Continue clonidine 0.1 mg twice a day, Neurontin 300 mg four times a day, Inderal 20 mg t.i.d., hydralazine one tablet 20 mg three times a day, and Effexor just to go back on your dose that you are talking and monitor your blood pressure, it is 150 mg p.o. daily. Also, the patient is getting water pill chlorthalidone 25 mg daily, potassium 20 mEq p.o. daily, magnesium oxide OTC one tablet twice a day, and Nicoderm patch one each day. Risk of smoking explain to the patient. 2. Depression. Continue Effexor. Continue Remeron 30 mg p.o. at bedtime. 3. Pepcid 40 mg in addition to baby aspirin 81 mg for his risk reduction especially with high blood pressure, which is every other day will be okay. I did advise the patient the smoking should be stopped. Luis Felipe Ashton MD
== END 2017-04-08 16:44 | disposition home or self-care (01) | DRG 897 ==
LOC: ED 11:58 → ERH 15:36 → 3RSO 17:08
PROVIDERS: ADMIT Internal Medicine; ATTEND Internal Medicine
DX: F10.239 Alcohol dependence with withdrawal, unspecified (principal); F33.2 Major depressive disorder, recurrent severe without psychotic features; F10.229 Alcohol dependence with intoxication, unspecified; F10.24 Alcohol dependence with alcohol-induced mood disorder; E87.8 Other disorders of electrolyte and fluid balance, not elsewhere classified; I10 Essential (primary) hypertension; F17.210 Nicotine dependence, cigarettes, uncomplicated; F41.9 Anxiety disorder, unspecified; Y90.7 Blood alcohol level of 200-239 mg/100 ml

== ENCOUNTER 2017-06-30 15:56 | Inpatient (IN) | payer OTHER ==
[2017-06-30 15:58] VITALS: BMI 23.1
--- NOTE | 2017-06-30 15:59 | ED PDOC ---
Arrival/HPI - General Time Seen by Provider: 06/30/17 15:58 Historian: Patient, EMS - History of Present Illness Narrative History of Present Illness (Text): 06/30/17 15:59 47 y/o male, pmh including htn, psychiatrist history including chronic alcohol dependence/anxiety/alcohol withdrawal,nkda, biba, c/o alcohol intoxication. Pt. stated that he has been drinking for the past 2 weeks, last drink about 1 hour ago, dropped off by his friend, no palpitation, no numbness or tingling, no night sweat, no rash, no change in vision, no numbness or tingling, no tremors, no tongue fasciculation, no palpitation, no chest pain, no facial twitching, no homicidal or suicidal ideation, no auditory or visual hallucination, no other medical or psychological complaints. Past Medical History - Provider Review Nursing Documentation Reviewed: Yes - Infectious Disease Hx of Infectious Diseases: None - Cardiac Hx Cardiac Disorders: No Hx Hypertension: Yes - Pulmonary Hx Tuberculosis: No - Neurological HX Cerebrovascular Accident: No Hx Seizures: No - Hematological/Oncological Hx Cancer: No - Musculoskeletal/Rheumatological Hx Falls: No - Genitourinary/Gynecological Hx Sexually Transmitted Diseases: No - Psychiatric Hx Anxiety: Yes Hx Depression: Yes Hx Substance Use: Yes - Surgical History Hx Breast Biopsy: Yes Hx Orthopedic Surgery: Yes (RT ELBOW) - Anesthesia Hx Anesthesia: Yes Hx Anesthesia Reactions: No Family/Social History - Physician Review Nursing Documentation Reviewed: Yes Family/Social History: Unknown Family HX Smoking Status: Heavy Smoker > 10 Cigarettes Daily Hx Alcohol Use: Yes Hx Substance Use: Yes Substance used: Cocaine on sunday Allergies/Home Meds Allergies/Adverse Reactions: Allergies No Known Allergies Allergy (Verified 06/30/17 16:17) Home Medications: Home Meds Medication Instructions Recorded Confirmed cloNIDine [clonidine HCl] 0.1 mg PO TID 04/01/17 06/30/17 Mirtazapine [Remeron] PO HS 07/01/17 Review of Systems - Review of Systems Constitutional: absent: Fatigue, Fevers Eyes: absent: Vision Changes ENT: absent: Hearing Changes Respiratory: absent: SOB, Cough Cardiovascular: absent: Chest Pain Gastrointestinal: absent: Abdominal Pain, Nausea, Vomiting Skin: absent: Rash, Pruritis Neurological: absent: Headache Psychiatric: absent: Anxiety, Depression, Suicidal Ideation Physical Exam Vital Signs Temp Pulse Resp BP Pulse Ox 06/30/17 22:16 95 H 18 162/108 H 99 06/30/17 17:42 92 H 18 148/96 H 95 06/30/17 16:50 115 H 181/118 H 06/30/17 16:49 115 H 181/118 H 06/30/17 16:35 115 H 17 181/118 H 98 06/30/17 16:13 98 F 120 H 20 195/120 H 99 - Systems Exam Head: Present: Atraumatic, Normocephalic Pupils: Present: PERRL Extroacular Muscles: Present: EOMI Conjunctiva: Present: Normal Mouth: Present: Moist Mucous Membranes Neck: Present: Normal Range of Motion Respiratory/Chest: Present: Clear to Auscultation, Good Air Exchange. No: Respiratory Distress, Accessory Muscle Use Cardiovascular: Present: Regular Rate and Rhythm, Normal S1, S2. No: Murmurs Abdomen: Present: Normal Bowel Sounds. No: Tenderness, Distention, Peritoneal Signs, Rebound, Guarding Back: Present: Normal Inspection Upper Extremity: Present: Normal Inspection. No: Cyanosis, Edema Lower Extremity: Present: Normal Inspection. No: Edema Neurological: Present: GCS=15, CN II-XII Intact, Speech Normal, Motor Func Grossly Intact, Memory Normal, Other (no tongue fasciculation, no hand/finger tremors. ) Skin: Present: Warm, Dry, Normal Color. No: Rashes Psychiatric: Present: Alert, Oriented x 3, Normal Insight, Normal Concentration Medical Decision Making ED Course and Treatment: 06/30/17 16:18 -labs/magnesium -IV banana bag/propranaol 20/clonidine 0.1mg/hydralazine 20mg po ordered as this is usual medication -cardiac cath lab manager -Observe and reassess 06/30/17 16:58 -Pt. feels anxious, request anxiolytic, valium 5mg po ordered 06/30/17 17:54 -Pt. is vitally table currently, calmed, resting well and sleeping, BP and HR controlled with his usual medication given in the ER. 06/30/17 19:34 -EKG: NSR @ 96 BPM, no ST elevation or depression, no T wave inversion, compared with previous ekg. -Chest xray: ER wet read no active disease -Labs are non-significant except potassium 3.2 (potassium chloride 40meq po ordered), normal magnesium level -Alcohol level is 329 -UDS show no acute findings -Pt. stated that he feels shaking and nauseous, history of alcohol withdrawal seizure, ativan 1mg IV ordered as he mild hand tremor but no tongue fasiculation. -Paging the pmd Dr. Ashton for admission to the telemetry. 06/30/17 20:08 -Paged Dr. Ashton 3 times already, pending for call back. 06/30/17 20:49 -Dr. Ashton still has not call back after 1 hour, paging the hospitalist for admission. 06/30/17 20:54 -Case discussed with the medicine resident and Dr. Russ including labs/ radiology result, agreed on the admission to the hospitalist service. -Case discussed with Dr. Pandey including/labs/radiology result, agreed on the treatment and admission, he will put in the admission. - Lab Interpretations Lab Results: 06/30/17 16:30 06/30/17 16:30 Lab Results 06/30/17 18:30: Urine Opiates Screen Negative, Urine Methadone Screen Negative, Ur Barbiturates Screen Negative, Ur Phencyclidine Scrn Negative, Ur Amphetamines Screen Negative, U Benzodiazepines Scrn Negative, U Oth Cocaine Metabols Negative, U Cannabinoids Screen Negative 06/30/17 16:30: WBC 9.2, RBC 4.96, Hgb 16.0, Hct 44.4, MCV 89.5, MCH 32.3, MCHC 36.0, RDW 14.5, Plt Count 220, MPV 9.1, Gran % 65.6, Lymph % (Auto) 25.9, [place] % (Auto) 7.4 H, Eos % (Auto) 0.2 L, Baso % (Auto) 0.9, Gran # 6.00, Lymph # ( Auto) 2.4, [place] # (Auto) 0.7 H, Eos # (Auto) 0.0, Baso # (Auto) 0.08 06/30/17 16:30: Alcohol, Quantitative 329 H* 06/30/17 16:30: Sodium 139, Potassium 3.2 L, Chloride 97 L, Carbon Dioxide 25, Anion Gap 20, BUN 11, Creatinine 0.8, Est GFR ( Amer) > 60, Est GFR (Non- Af Amer) > 60, Random Glucose 160 H, Calcium 9.2, Magnesium 1.9, Total Bilirubin 0.4, AST 81 H D, ALT 58 H, Alkaline Phosphatase 101, Total Protein 7.4 , Albumin 4.3, Globulin 3.1, Albumin/Globulin Ratio 1.4 I have reviewed the lab results: Yes - RAD Interpretation Radiology Orders: 06/30/17 19:39 CHEST PORTABLE [RAD] Stat no active disease [employer] 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 Interpreted by ED Physician: Yes Type: 12 lead EKG Comparison: Com.w/previous EKG - Medication Orders Current Medication Orders: Clonidine HCl (Catapres) 0.2 mg PO BID PRN PRN Reason: Systolic Blood Pressure Last Admin: 07/01/17 09:02 Dose: 0.2 mg MAR Pulse and Blood Pressure Document 07/01/17 09:02 GM (Rec: 07/01/17 09:02 GM [id number]) Blood Pressure Blood Pressure (100/60-150/90) 192/102 Famotidine (Pepcid) 20 mg IVP DAILY [facility] Last Admin: 07/01/17 09:50 Dose: 20 mg IVP Administration Document 07/01/17 09:50 GM (Rec: 07/01/17 09:50 GM [id number]) Charges for Administration # of IVP Administrations 1 Folic Acid (Folic Acid) 1 mg PO DAILY [facility] Last Admin: 07/01/17 09:51 Dose: 1 mg Gabapentin (Neurontin) 300 mg PO TID [facility] PRN Reason: Protocol Last Admin: 07/01/17 14:59 Dose: 300 mg Behavioural Document 07/01/17 14:59 GM (Rec: 07/01/17 15:00 GM [place] [id number]) Maintenance Maintenance Dose No Nonmedicinal Nonmedicinal Interventions Redirect Therapeutic Communication Behavior Behavior for Medication: Hallucinations/paranoid/ delusions/extreme fear Sodium Chloride (Sodium Chloride 0.9%) 1,000 mls @ 100 mls/hr IV .Q10H [facility] Last Admin: 07/01/17 06:00 Dose: 100 mls/hr eMAR Start Stop Document 07/01/17 06:00 LADAN (Rec: 07/01/17 06:00 LADAN [id number]) Intravenous Solution Start Date 07/01/17 Start Time 06:00 End Date 07/01/17 Lisinopril (Zestril) 10 mg PO DAILY [facility] Last Admin: 07/01/17 13:17 Dose: 10 mg MAR Pulse and Blood Pressure Document 07/01/17 13:17 GM (Rec: 07/01/17 13:17 GM [id number]) Blood Pressure Blood Pressure (100/60-150/90) 189/92 Lorazepam (Ativan) 1 mg IVP Q1 PRN; Protocol PRN Reason: Symptoms of alcohol withdrawl Last Admin: 07/01/17 09:50 Dose: 1 mg IVP Administration Document 07/01/17 09:50 GM (Rec: 07/01/17 09:50 GM [id number]) Charges for Administration # of IVP Administrations 1 Behavioural Document 07/01/17 09:50 GM (Rec: 07/01/17 09:50 GM [id number]) Maintenance Maintenance Dose No Nonmedicinal Nonmedicinal Interventions Redirect Therapeutic Communication Behavior Behavior for Medication: Anxiety Hallucinations/paranoid/ delusions/extreme fear Re-Assess: Reassess Psych Meds Document 07/01/17 10:20 GM (Rec: 07/01/17 10:57 GM [id number]) Reassess Psych Med Effective Lorazepam (Ativan) 2 mg IVP Q6H ALESSANDRO PRN Reason: Protocol Last Admin: 07/01/17 13:16 Dose: 2 mg IVP Administration Document 07/01/17 13:16 GM (Rec: 07/01/17 13:17 GM [id number]) Charges for Administration # of IVP Administrations 1 Behavioural Document 07/01/17 13:16 GM (Rec: 07/01/17 13:17 GM [id number]) Maintenance Maintenance Dose No Nonmedicinal Nonmedicinal Interventions Redirect Therapeutic Communication Behavior Behavior for Medication: Anxiety Hallucinations/paranoid/ delusions/extreme fear Re-Assess: Reassess Psych Meds Document 07/01/17 13:46 GM (Rec: 07/01/17 15:11 GM [email or web address]) Reassess Psych Med Effective Multivitamins (Thera Tab) 1 tab PO 0800 [facility] Last Admin: 07/01/17 09:02 Dose: 1 tab Nicotine (Nicoderm Cq) 1 patch TD DAILY PRN PRN Reason: URGE TO SMOKE Last Admin: 07/01/17 00:51 Dose: 1 patch MAR Transdermal Patch Site Document 07/01/17 00:51 LADAN (Rec: 07/01/17 00:52 LADAN [id number]) Transdermal Patch Site Transdermal Patch Site Left Outer Upper Arm Thiamine HCl (Vitamin B1 Tab) 100 mg PO DAILY ALESSANDRO Last Admin: 07/01/17 09:51 Dose: 100 mg Discontinued Medications Clonidine HCl (Catapres) 0.1 mg PO STAT STA Stop: 06/30/17 16:38 Last Admin: 06/30/17 16:49 Dose: 0.1 mg MAR Pulse and Blood Pressure Document 06/30/17 16:49 SF (Rec: 06/30/17 16:49 SF [id number]) Pulse Pulse Rate (60-90) 113 Blood Pressure Blood Pressure (100/60-150/90) 181/118 Diazepam (Valium) 5 mg PO ONCE ONE PRN Reason: Protocol Stop: 06/30/17 16:58 Last Admin: 06/30/17 17:18 Dose: 5 mg Famotidine (Pepcid) 20 mg IVP STAT STA Stop: 06/30/17 19:34 Last Admin: 06/30/17 20:33 Dose: 20 mg IVP Administration Document 06/30/17 20:33 LA (Rec: 06/30/17 20:33 LA [id number]) Charges for Administration # of IVP Administrations 1 Hydralazine HCl (Apresoline) 20 mg PO STAT STA Stop: 06/30/17 16:38 Last Admin: 06/30/17 16:49 Dose: 20 mg MAR Pulse and Blood Pressure Document 06/30/17 16:49 SF (Rec: 06/30/17 16:50 SF [id number]) Pulse Pulse Rate (60-90) 115 Blood Pressure Blood Pressure (100/60-150/90) 181/118 Hydralazine HCl (Apresoline) 10 mg IVP Q6 PRN PRN Reason: Systolic Blood Pressure Last Admin: 07/01/17 06:58 Dose: 10 mg IVP Administration Document 07/01/17 06:58 LADAN (Rec: 07/01/17 06:59 LADAN [id number]) Charges for Administration # of IVP Administrations 1 MAR Pulse and Blood Pressure Document 07/01/17 06:58 LADAN (Rec: 07/01/17 06:59 LADAN [id number]) Pulse Pulse Rate (60-90) 95 Blood Pressure Blood Pressure (100/60-150/90) 190/114 Multivitamins/Vitamin C 10 ml/Thiamine HCl 100 mg/ Folic Acid 1 mg/ Sodium Chloride 1,011.2 mls @ 1,000 mls/hr IV .Q1H1M ONE Stop: 06/30/17 17:19 Last Admin: 06/30/17 17:20 Dose: 1,000 mls/hr eMAR Start Stop Document 06/30/17 17:20 LA (Rec: 06/30/17 17:21 LA [id number]) Intravenous Solution Start Date 06/30/17 Start Time 17:20 End Date 06/30/17 End time 18:21 Total Infusion Time 61 Magnesium Sulfate 2 gm/ Sodium (Chloride) 104 mls @ 102 mls/hr IVPB ONCE ONE Stop: 07/01/17 08:29 Last Admin: 07/01/17 10:48 Dose: 102 mls/hr eMAR Start Stop Document 07/01/17 10:48 GM (Rec: 07/01/17 10:48 GM [id number]) Intravenous Solution Start Date 07/01/17 Start Time 10:48 End Date 07/01/17 End time 11:48 Total Infusion Time 60 Labetalol HCl (Trandate) 20 mg IV ONCE ONE Stop: 07/01/17 05:45 Last Admin: 07/01/17 05:57 Dose: 20 mg eMAR Start Stop Document 07/01/17 05:57 LADAN (Rec: 07/01/17 05:59 [facility] [id number]) Intravenous Solution Start Date 07/01/17 Start Time 05:59 End Date 07/01/17 End time 06:01 Total Infusion Time 2 MAR Pulse and Blood Pressure Document 07/01/17 05:57 LADAN (Rec: 07/01/17 05:59 LADAN [id number]) Pulse Pulse Rate (60-90) 111 Blood Pressure Blood Pressure (100/60-150/90) 198/105 Lorazepam (Ativan) 1 mg IVP ONCE ONE PRN Reason: Protocol Stop: 06/30/17 19:33 Last Admin: 06/30/17 20:35 Dose: 1 mg IVP Administration Document 06/30/17 20:35 LA (Rec: 06/30/17 20:35 LA [id number]) Charges for Administration # of IVP Administrations 1 Ondansetron HCl (Zofran Inj) 4 mg IVP STAT STA Stop: 06/30/17 19:34 Last Admin: 06/30/17 20:32 Dose: 4 mg IVP Administration Document 06/30/17 20:32 LA (Rec: 06/30/17 20:33 LA [id number]) Charges for Administration # of IVP Administrations 1 Ondansetron HCl (Zofran Inj) 4 mg IVP STAT STA Stop: 07/01/17 05:44 Last Admin: 07/01/17 05:56 Dose: 4 mg IVP Administration Document 07/01/17 05:56 LADAN (Rec: 07/01/17 05:56 LADAN [id number]) Charges for Administration # of IVP Administrations 1 Pneumococcal Polyvalent Vaccine (Pneumovax 23 Vaccine) 0.5 ml IM .ONCE ONE Stop: 07/01/17 02:22 Potassium Chloride (K-Dur 20 Meq Er Tab) 40 meq PO STAT STA Stop: 06/30/17 17:20 Last Admin: 06/30/17 20:33 Dose: 40 meq Potassium Chloride (Potassium Chloride Oral Soln) 40 meq PO ONCE ONE Stop: 07/01/17 07:29 Last Admin: 07/01/17 09:02 Dose: 40 meq Propranolol HCl (Inderal) 20 mg PO STAT STA Stop: 06/30/17 16:38 Last Admin: 06/30/17 16:50 Dose: 20 mg MAR Pulse and Blood Pressure Document 06/30/17 16:50 SF (Rec: 06/30/17 16:50 SF [id number]) Pulse Pulse Rate (60-90) 115 Blood Pressure Blood Pressure (100/60-150/90) 181/118 - PA / 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 Disposition/Present on Arrival - Present on Arrival Any Indicators Present on Arrival: No History of DVT/PE: No History of Uncontrolled Diabetes: No Urinary Catheter: No History of Decub. Ulcer: No History Surgical Site Infection Following: None - Disposition Have Diagnosis and Disposition been Completed?: Yes Diagnosis: Alcohol dependence, Hypokalemia, Hypertension, Anxiety, Alcohol intoxication, Alcohol withdrawal Disposition: HOSPITALIZED Disposition Time: 17:55 Patient Plan: Admission, Observation, Telemetry Patient Problems: Current Active Problems Problem Status Onset Alcohol dependence Acute Alcohol intoxication Acute Alcohol withdrawal Acute Anxiety Acute Hypertension Acute Hypokalemia Acute Condition: GUARDED
[2017-06-30] MEDS ORDERED: Multivitamin (MVI) 10 ML, Thiamine 100 MG, Folic Acid 1 MG in Sodium Chloride 0.9% 1,00... IV ONE (16:19)
[2017-06-30 16:49] LABS: BASO # 0.08 K/mm3 (0.0-2.0); BASO % 0.9 % (0.0-3.0); EOS % 0.2 % (1.5-5.0); GRAN % 65.6 % (50.0-68.0); LYMPH # 2.4 (1.2-3.4); LYMPH % 25.9 % (22.0-35.0); MEAN CELL VOLUME 89.5 fl (80.0-105.0); MEAN CORPUSCULAR HEMOGLOBIN 32.3 pg (25.0-35.0); MEAN PLATELET VOLUME 9.1 fl (7.0-11.0); MONO # 0.7 (0.1-0.6); MONO % 7.4 % (1.0-6.0); RBC 4.96 10^6/uL (3.5-6.1); RED CELL DISTRIBUTION WIDTH 14.5 % (11.5-14.5); WHITE BLOOD COUNT 9.2 10^3/ul (4.5-11.0)
[2017-06-30 17:00] LABS: ALB/GLOB RATIO 1.4 (1.1-1.8); ALBUMIN 4.3 g/dL (3.0-4.8); ALT/SGPT 58 U/L (7-56); AST/SGOT 81 U/L (17-59); BLOOD UREA NITROGEN 11 mg/dL (7-21); CALCIUM 9.2 mg/dL (8.4-10.5); GFR AFRICAN-AMERICAN > 60; GFR NON-AFRICAN AMERICAN > 60
[2017-06-30] MEDS ORDERED: Potassium Chloride 20 mEq ER Tab PO STA (17:19)
[2017-06-30 19:21] LABS: BARBITURATES, UR NEGATIVE (NEGATIVE); BENZODIAZEPINES, UR NEGATIVE (NEGATIVE); OPIATES, UR NEGATIVE (NEGATIVE); PHENCYCLIDINE, UR NEGATIVE (NEGATIVE)
[2017-06-30] MEDS: Sodium Chloride 0.9% 1,000 ML IV SCH (20:34)
--- NOTE | 2017-06-30 22:34 | CP.PCM.HP ---
Addendum entered and electronically signed by Ruiz Day DO 06/30/17 23:31: Addendum to Assessment and Plan: Hypokalemia - repleted in ED - [facility] w[facility] - monitor closely via CMP Original Note: <ShayRuiz - Last Filed: 06/30/17 23:18> History of Present Illness - History of Present Illness History of Present Illness: Subjective: CC: ETOH Intoxication HPI: Patient is a 47 year old male with past medical history of hypertension, anxiety , depression, and breast cyst who presents to the emergency department for evaluation and treatment of acute alcohol intoxication. States that his been binge drinking for the past 2 weeks with consumption of approximately 2-3 pints of hard liquor daily. States that he requested his friends bring him to the emergency department because he wants to stop his ETOH abuse and get better. Admits to having issues with alcoholism over the past 2 years. Has not taken home medications in 3 weeks because he did not have any remaining at home and no refills left on the prescriptions. Admits to experiencing cold sweats and feeling anxious. Patient denies intractable headache, dizziness, blurry vision, ringing in the ears, chest pain, shortness of breath, abdominal pain, nausea, vomiting, diarrhea, constipation, and urinary symptoms. Denies suicidal/ homicidal ideation and visual/ auditory hallucinations. ROS: 12 point review of systems negative except as indicated in HPI PMHx: hypertension, anxiety, depression, and left breast cyst PSHx: left breast cyst removal Family Hx: mother and father- anxiety, depression, ETOH abuse Social Hx: ETOH use- 2-3 pints of liquor daily, tobacco use-1 ppd for 25 years , former illicit drug use- cocaine and marijuana- last taken several months ago Medications: Please see medication reconciliation PMD: denies Pharmacy: [facility] [place] Physical Examination: - Constitutional Appears: Non-toxic, No Acute Distress - Head Exam Head Exam: atraumatic, normocephalic - Eye Exam Eye Exam: Normal appearance, PERRL. absent: Scleral icterus - ENT Exam ENT Exam: Mucous Membranes Moist - Neck Exam Neck exam: Normal Inspection - Respiratory Exam Respiratory Exam: Normal Breathing Pattern - Cardiovascular Exam Cardiovascular Exam: +S1, +S2. absent: Gallop, JVD - GI/Abdominal Exam GI & Abdominal Exam: Normal Bowel Sounds, absent: Distended, Guarding, Pulsatile Mass, Rebound, Rigid - Extremities Exam Extremities exam: Negative for: calf tenderness - Neurological Exam Neurological exam: Patient is awake, alert, responds to verbal stimuli, answers questions appropriately, follows commands, and moves extremities past midline, tremors present bilateral upper extremities - Psychiatric Exam Psychiatric exam: anxious - Skin Skin Exam: warm and dry Assessment and Plan: Patient is a 47 year old male with past medical history of hypertension who was admitted for evaluation and treatment of acute alcohol intoxication. Ethanol Abuse, Potential Withdrawal - CIWA - high risk fall precautions - ativan 2mg q6 hours scheduled, ativan 1mg q1 prn withdrawal symptoms - consider adding librium or geodon if sxs are not controlled - multivitamin, thiamine, and folate supplement Elevated LFTS - likely 2/2 to ETOH use, ETOH level 329 - monitor closely via [facility] Hypertensive Emergency, Hx of Htn - BP reviewed, trended, and appreciated- 180s/ 110s on admission - home medications include HCTZ, propanolol, and clonidine- confirm dosages with pharmacy prior to starting - hydralazine 10mg IV q6 prn SBP > 180, holding parameters- do not administer if HR is > 100 bpm History of Anxiety/Depression - pysch consulted- appreciate recommendations - home medications include effexor, remeron, and gabapentin Prophylaxis - DVT ppx- scds - GI ppx- famotidine Patient case discussed with and plan approved by attending physician. Present on Admission - Present on Admission Any Indicators Present on Admission: No Past Patient History - Infectious Disease Hx of Infectious Diseases: None - Past Social History Smoking Status: Heavy Smoker > 10 Cigarettes Daily - CARDIAC Hx Cardiac Disorders: No Hx Hypertension: Yes - PULMONARY Hx Tuberculosis: No - NEUROLOGICAL HX Cerebrovascular Accident: No Hx Seizures: No - HEMATOLOGICAL/ONCOLOGICAL Hx Cancer: No - MUSCULOSKELETAL/RHEUMATOLOGICAL Hx Falls: No - GENITOURINARY/GYNECOLOGICAL Hx Sexually Transmitted Disorders: No - PSYCHIATRIC Hx Anxiety: Yes Hx Depression: Yes Hx Substance Use: Yes - SURGICAL HISTORY Hx Breast Biopsy: Yes Hx Orthopedic Surgery: Yes (RT ELBOW) - ANESTHESIA Hx Anesthesia: Yes Hx Anesthesia Reactions: No Meds Allergies/Adverse Reactions: Allergies Allergy/AdvReac Type Severity Reaction Status Date / Time No Known Allergies Allergy Verified 06/30/17 16:17 Results - Vital Signs Recent Vital Signs: Last Vital Signs Temp 98 F 06/30/17 16:13 Pulse 95 H 06/30/17 22:16 Resp 18 06/30/17 22:16 BP 162/108 H 06/30/17 22:16 Pulse Ox 99 06/30/17 22:16 - Labs Result Diagrams: 06/30/17 16:30 06/30/17 16:30 <Viviana Russ - Last Filed: 07/01/17 05:57> Results - Vital Signs Recent Vital Signs: Last Vital Signs Temp 98 F 06/30/17 16:13 Pulse 105 H 07/01/17 02:00 Resp 20 07/01/17 00:00 BP 170/100 H 07/01/17 01:00 Pulse Ox 99 06/30/17 22:16 - Labs Result Diagrams: 06/30/17 16:30 06/30/17 16:30 Attending/Attestation - Attestation I have personally seen and examined this patient.: Yes I have fully participated in the care of the patient.: Yes I have reviewed all pertinent clinical information: Yes Notes (Text): 07/01/17 05:55 Patient was seen when he was in the ER on bed # 8. Agree with history,physical examination, -------
[2017-07-01] MEDS ORDERED: Influenza Vaccine 60 mcg/0.5 mL SYR (4YR UP) IM ONE (02:21)
[2017-07-01] MEDS ORDERED: Pneumococcal 23-Valent Vaccine IM ONE (02:21)
[2017-07-01] MEDS ORDERED: DiphenhydrAMINE 50 mg/ml Inj IVP STA (05:04)
[2017-07-01] MEDS ORDERED: Labetalol 5 mg/ml Inj 20ML IV ONE (05:44)
[2017-07-01] MEDS: Sodium Chloride 0.9% 1,000 ML IV SCH (06:00)
[2017-07-01 07:08] LABS: ALB/GLOB RATIO 1.3 (1.1-1.8); ALBUMIN 3.7 g/dL (3.0-4.8); ALT/SGPT 62 U/L (7-56); AST/SGOT 94 U/L (17-59); BLOOD UREA NITROGEN 9 mg/dL (7-21); GFR AFRICAN-AMERICAN > 60; GFR NON-AFRICAN AMERICAN > 60
[2017-07-01 07:14] LABS: BASO # 0.05 K/mm3 (0.0-2.0); BASO % 0.7 % (0.0-3.0); EOS # 0.2 (0.0-0.7); GRAN # 4.76 (1.4-6.5); GRAN % 64.6 % (50.0-68.0); HEMOGLOBIN 15.1 g/dL (14.0-18.0); LYMPH # 1.9 (1.2-3.4); LYMPH % 25.2 % (22.0-35.0); MEAN CELL VOLUME 89.6 fl (80.0-105.0); MEAN CORPUSCULAR HEMOGLOBIN 31.5 pg (25.0-35.0); MEAN CORPUSCULAR HGB CONC 35.2 g/dl (31.0-37.0); MEAN PLATELET VOLUME 9.3 fl (7.0-11.0); MONO # 0.6 (0.1-0.6); MONO % 7.5 % (1.0-6.0); RBC 4.79 10^6/uL (3.5-6.1); RED CELL DISTRIBUTION WIDTH 14.3 % (11.5-14.5); WHITE BLOOD COUNT 7.4 10^3/ul (4.5-11.0)
[2017-07-01] MEDS ORDERED: Magnesium Sulfate 2 GM in Sodium Chloride 0.9% 100 ML IVPB ONE (07:28)
[2017-07-01] MEDS ORDERED: Potassium Chloride 40 mEq/30 ml LIQ UD PO ONE (07:28)
--- NOTE | 2017-07-01 07:56 | RAD ---
HISTORY: medical clearance COMPARISON: No prior. FINDINGS: LUNGS: No active pulmonary disease. PLEURA: No significant pleural effusion identified, no pneumothorax apparent. CARDIOVASCULAR: No radiographic findings to suggest acute or significant cardiovascular disease. OSSEOUS STRUCTURES: No significant abnormalities. VISUALIZED UPPER ABDOMEN: Normal. OTHER FINDINGS: None. IMPRESSION: No active disease. Concordant results with the preliminary interpretation rendered by the emergency department physician procedure.
[2017-07-01] MEDS: Multivitamin Therapeutic Tab PO SCH (09:02)
--- NOTE | 2017-07-01 15:02 | CARD ---
APPROVED REPORT EKG Measurement Heart [id number] <Conclusion> Normal sinus rhythm Possible Left atrial enlargement Septal infarct, age undetermined Abnormal ECG
--- NOTE | 2017-07-01 15:40 | CP.PCM.PN ---
<Yasmani Wallis - Last Filed: 07/01/17 15:36> Subjective - Date & Time of Evaluation Date of Evaluation: 07/01/17 Time of Evaluation: 07:30 - Subjective Subjective: Yasmani Wallis DO PGY1 - IM Progress Note Patient seen and examined at bedside. Per nursing staff, no acute events overnight. Patient was admitted for alcohol intoxication/withdrawal. Patient appears to be in early stages of withdrawal. Reports tremor, depression. Denies chest pain, shortness of breath, confusion, auditory/visual hallucinations. Last drink was 30 minutes before presentation to the ED. Reports that he has been drinking extremely heavily over the past 2 weeks, including 10+ bottles of beer, 1+ pt vodka, and 1+ pt whisky every day. Objective - Vital Signs/Intake and Output Vital Signs (last 24 hours): Temp Pulse Resp BP Pulse Ox 98.3 F 107 H 22 189/92 H 97 07/01/17 06:00 07/01/17 10:00 07/01/17 06:00 07/01/17 13:17 07/01/17 06:00 Intake and Output: 07/01/17 07/01/17 06:59 18:59 Intake Total 1300 Balance 1300 - Medications Medications: Current Medications Clonidine HCl (Catapres) 0.2 mg PO BID PRN PRN Reason: Systolic Blood Pressure Last Admin: 07/01/17 09:02 Dose: 0.2 mg Famotidine (Pepcid) 20 mg IVP DAILY [facility] Last Admin: 07/01/17 09:50 Dose: 20 mg Folic Acid (Folic Acid) 1 mg PO DAILY [facility] Last Admin: 07/01/17 09:51 Dose: 1 mg Gabapentin (Neurontin) 300 mg PO TID [facility] PRN Reason: Protocol Last Admin: 07/01/17 14:59 Dose: 300 mg Sodium Chloride (Sodium Chloride 0.9%) 1,000 mls @ 100 mls/hr IV .Q10H [facility] Last Admin: 07/01/17 06:00 Dose: 100 mls/hr Lisinopril (Zestril) 10 mg PO DAILY [facility] Last Admin: 07/01/17 13:17 Dose: 10 mg Lorazepam (Ativan) 1 mg IVP Q1 PRN; Protocol PRN Reason: Symptoms of alcohol withdrawl Last Admin: 07/01/17 09:50 Dose: 1 mg Lorazepam (Ativan) 2 mg IVP Q6H [facility] PRN Reason: Protocol Last Admin: 07/01/17 13:16 Dose: 2 mg Multivitamins (Thera Tab) 1 tab PO 0800 [facility] Last Admin: 07/01/17 09:02 Dose: 1 tab Nicotine (Nicoderm Cq) 1 patch TD DAILY PRN PRN Reason: URGE TO SMOKE Last Admin: 07/01/17 00:51 Dose: 1 patch Thiamine HCl (Vitamin B1 Tab) 100 mg PO DAILY [facility] Last Admin: 07/01/17 09:51 Dose: 100 mg - Labs Labs: 07/01/17 06:25 07/01/17 06:25 - Constitutional Appears: Non-toxic, In Acute Distress (mild) - Head Exam Head Exam: ATRAUMATIC, NORMOCEPHALIC - Eye Exam Eye Exam: EOMI, Normal appearance, PERRL - ENT Exam ENT Exam: Mucous Membranes Moist, Normal Exam - Neck Exam Neck Exam: Normal Inspection - Respiratory Exam Respiratory Exam: Clear to Ausculation Bilateral, NORMAL BREATHING PATTERN - Cardiovascular Exam Cardiovascular Exam: Tachycardia, REGULAR RHYTHM, +S1, +S2 - GI/Abdominal Exam GI & Abdominal Exam: Soft, Normal Bowel Sounds. absent: Tenderness - Extremities Exam Extremities Exam: Normal Inspection. absent: Calf Tenderness, Pedal Edema - Neurological Exam Neurological Exam: Alert, Awake, CN II-XII Intact, Oriented x3 Additional comments: Tremulous; no asterixis; no diaphoresis - Psychiatric Exam Psychiatric exam: Normal Affect, Normal Mood - Skin Skin Exam: Dry, Intact, Normal Color Assessment and Plan - Assessment and Plan (Free Text) Assessment: Patient is a 47 year old male with past medical history of hypertension who was admitted for evaluation and treatment of acute alcohol intoxication. Ethanol Abuse, Potential Withdrawal - Patient appears to be in early stages of withdrawal, with tremor, tachycardia , and hypertension - CIWA - high risk fall precautions - ativan 2mg q6 hours scheduled, ativan 1mg q1 prn withdrawal symptoms - consider adding librium or geodon if sxs are not controlled - multivitamin, thiamine, and folate supplement Elevated LFTS - Stable; likely 2/2 to ETOH use, ETOH level 329 - monitor closely via CMP Hypertensive Urgency, Hx of Htn - Continues to be elevated; patient is asymptomatic, denies headache, chest pain , vision changes; no focal neurological deficits - Patient is unsure of the dose of his medications - Start lisinopril 10mg PO daily - Start clonidine 0.2mg PO BID PRN History of Anxiety/Depression - Patient complaining of depression, but denies SI/HI - Psych consulted- appreciate recommendations Prophylaxis - DVT ppx- scds - GI ppx- famotidine Case discussed and reviewed with attending Dr. Hernandez <Shanae Hernandez - Last Filed: 07/01/17 16:13> Objective - Vital Signs/Intake and Output Vital Signs (last 24 hours): Temp Pulse Resp BP Pulse Ox 98.3 F 107 H 22 152/72 H 97 07/01/17 06:00 07/01/17 10:00 07/01/17 06:00 07/01/17 16:04 07/01/17 06:00 Intake and Output: 07/01/17 07/01/17 06:59 18:59 Intake Total 1300 Balance 1300 - Medications Medications: Current Medications Clonidine HCl (Catapres) 0.2 mg PO BID PRN PRN Reason: Systolic Blood Pressure Last Admin: 07/01/17 09:02 Dose: 0.2 mg Famotidine (Pepcid) 20 mg IVP DAILY [facility] Last Admin: 07/01/17 09:50 Dose: 20 mg Folic Acid (Folic Acid) 1 mg PO DAILY [facility] Last Admin: 07/01/17 09:51 Dose: 1 mg Gabapentin (Neurontin) 300 mg PO TID ALESSANDRO PRN Reason: Protocol Last Admin: 07/01/17 14:59 Dose: 300 mg Sodium Chloride (Sodium Chloride 0.9%) 1,000 mls @ 100 mls/hr IV .Q10H [facility] Last Admin: 07/01/17 06:00 Dose: 100 mls/hr Lisinopril (Zestril) 10 mg PO DAILY [facility] Last Admin: 07/01/17 13:17 Dose: 10 mg Lorazepam (Ativan) 1 mg IVP Q1 PRN; Protocol PRN Reason: Symptoms of alcohol withdrawl Last Admin: 07/01/17 09:50 Dose: 1 mg Lorazepam (Ativan) 2 mg IVP Q6H [facility] PRN Reason: Protocol Last Admin: 07/01/17 13:16 Dose: 2 mg Multivitamins (Thera Tab) 1 tab PO 0800 [facility] Last Admin: 07/01/17 09:02 Dose: 1 tab Nicotine (Nicoderm Cq) 1 patch TD DAILY PRN PRN Reason: URGE TO SMOKE Last Admin: 07/01/17 00:51 Dose: 1 patch Thiamine HCl (Vitamin B1 Tab) 100 mg PO DAILY [facility] Last Admin: 07/01/17 09:51 Dose: 100 mg - Labs Labs: 07/01/17 06:25 07/01/17 06:25 Attending/Attestation - Attestation I have personally seen and examined this patient.: Yes I have fully participated in the care of the patient.: Yes I have reviewed all pertinent clinical information, including history, physical exam and plan: Yes Notes (Text): 07/01/17 16:08 47 year old male with past medical history of hypertension, depression and alcohol abuse who presented with alcohol intoxication; admitted for alcohol withdrawal. Continue with banana bag and ativan alessanrdo/prn for withdrawal symptoms. He was counselled on alcohol abstinence. Elevated LFTs likely secondary to alcohol abuse. Will continue to monitor closely and check hepatitis panel. He is also hypertensive likely secondary to medication noncompliance and alcohol withdrawal. Will start lisinopril 10 mg and clonidine prn. Shanae Hernandez MD Hospitalist.
--- NOTE | 2017-07-02 01:02 | CON ---
DATE: HISTORY OF PRESENT ILLNESS: The patient is a 47-year-old male with reported history of bipolar II as well as alcohol use disorder. Patient came to the hospital for possible alcohol withdrawal symptoms. Psych consult was called for evaluation of mood symptoms and patient has history of bipolar disorder, possible medication management. Patient was seen and examined. This creative services writer is familiar to this patient from the previous consultation services. Previous records reviewed. Patient was admitted to psychiatric inpatient unit in 05/2016. Patient signed against medical advice in [place] in May, patient was under police custody, was discharged. Patient was seen and examined today. Patient presented to be sleepy, but easily arousable. Patient had intermittent eye contact. Patient reported that he was doing relatively fine, but drinking. Patient reported that, at present moment, he feels comfortable. Patient was asking about Effexor as well as Neurontin. Effexor, this creative services writer does not recommend because patient is on withdrawal symptoms and at this point, cannot be identified if patient is depressed or not. This creative services writer cannot exclude that patient's mood symptoms will be better after withdrawal symptoms will be under control. Neurontin, possibly could be resumed 300 mg three times day in order to stabilize the mood as well as help patient with withdrawal symptoms as well as possible . Patient reported that he was feeling depressed, but denied thoughts of harming himself or others. Denied hearing voices, denied seeing things. Patient does not have psychiatrist in the community, does not have followup appointment. This creative services writer reviewed the vital signs, seems to be stable, but patient obviously withdrawing. Pulses 107, blood pressure 189/92. MEDICATIONS: Reviewed. Patient is on Catapres, Pepcid, folic acid, Neurontin, lisinopril, Ativan 2 mg IV push every 6 hours schedule, multivitamins, thiamine. LABORATORY DATA: Reviewed, seems to be within normal limits. Toxicology, alcohol level was 329. Serology, RPR was negative in 2017. MENTAL STATUS EXAMINATION: Patient appears to be sleepy, but easily arousable, intermittent eye contact. Speech was monotonic, low volume, underproductive. Mood described "I was depressed." Affect was constricted. Mood congruent. Thought process seems to be coherent and goal directed. Thought content, patient denied visual, auditory or tactile hallucinations. Denied paranoid ideation. Patient denied thoughts of harming himself or others. Denied intent or plan. Insight and judgment seems to be fair. Impulses are well controlled. IMPRESSION: Patient has history of alcohol use disorder as well as bipolar, type 2; alcohol withdrawal syndrome. PLAN: Continue current management. Ativan was scheduled by medical team, monitor withdrawal symptoms, Thiamine, folic acid and multivitamins need to be continued. Neurontin was started. We will follow up and advise accordingly. Should you have any questions, give me a call back. Thank you very much for letting me participate in care of your patient. Carmina Chen MD
[2017-07-02] MEDS: Sodium Chloride 0.9% 1,000 ML IV SCH ×2 (03:40→12:59)
[2017-07-02 06:32] LABS: BASO # 0.01 K/mm3 (0.0-2.0); BASO % 0.1 % (0.0-3.0); EOS # 0.1 (0.0-0.7); EOS % 1.5 % (1.5-5.0); GRAN # 4.45 (1.4-6.5); GRAN % 65.8 % (50.0-68.0); HEMOGLOBIN 13.4 g/dL (14.0-18.0); LYMPH # 1.6 (1.2-3.4); LYMPH % 22.9 % (22.0-35.0); MEAN CELL VOLUME 90.7 fl (80.0-105.0); MEAN CORPUSCULAR HEMOGLOBIN 31.2 pg (25.0-35.0); MEAN CORPUSCULAR HGB CONC 34.4 g/dl (31.0-37.0); MEAN PLATELET VOLUME 9.6 fl (7.0-11.0); MONO # 0.7 (0.1-0.6); MONO % 9.7 % (1.0-6.0); RBC 4.3 10^6/uL (3.5-6.1); RED CELL DISTRIBUTION WIDTH 14.6 % (11.5-14.5); WHITE BLOOD COUNT 6.8 10^3/ul (4.5-11.0)
[2017-07-02 07:06] LABS: ALB/GLOB RATIO 1.2 (1.1-1.8); ALBUMIN 3.2 g/dL (3.0-4.8); ALT/SGPT 67 U/L (7-56); AST/SGOT 103 U/L (17-59); BLOOD UREA NITROGEN 7 mg/dL (7-21); CALCIUM 8.4 mg/dL (8.4-10.5); GFR AFRICAN-AMERICAN > 60; GFR NON-AFRICAN AMERICAN > 60
[2017-07-02] MEDS ORDERED: Magnesium Sulfate 2 GM in Sodium Chloride 0.9% 100 ML IVPB ONE (08:22)
[2017-07-02] MEDS ORDERED: Potassium Chloride 20 mEq ER Tab PO ONE (08:22)
[2017-07-02] MEDS: Multivitamin Therapeutic Tab PO SCH (10:25)
[2017-07-02 11:47] LABS: HEPATITIS B SURFACE AG Negative (NEGATIVE)
[2017-07-02 11:53] LABS: HEPATITIS A IGM NEGATIVE (NEGATIVE); HEPATITIS B CORE AB NEGATIVE (NEGATIVE)
[2017-07-02 12:05] LABS: HEPATITIS C ANTIBODY NEGATIVE (NEGATIVE)
--- NOTE | 2017-07-02 13:29 | PN ---
DATE: FOLLOWUP NOTE SUBJECTIVE: In short, the patient is a 47-year-old male, reported history of alcohol use disorder. The patient was admitted on the medical side for evaluation of possible alcohol withdrawal symptoms. The patient also has history of mental illness, most likely bipolar type 2. Psych consult was involved because of the mood symptoms as well as possible medication management and alcohol withdrawal delirium. The patient was seen and examined initially yesterday. Please see consultation note for more detailed information. The patient was followed up today. The patient complained that he feels anxious. Vital signs are stable. Blood pressure is mildly elevated. The patient has upper extremity shakiness and the patient had reported subjective feeling of swelling. The patient reported that he did not sleep very well. This lead technical writer offered Remeron. The patient gladly accepted and the patient said that this medication helped him in the past. The patient is on Ativan. Stat dose of Ativan by mouth 2 mg was given to the patient. Neurontin will be increased to 600 mg three times a day. Vital signs seem to be stable. Temperature 97.7, pulse is 83, blood pressure 137/93, respirations 19, oxygen saturation is 100. Medications reviewed, Catapres, Pepcid, folic acid, Neurontin will be increased to 600 mg three times a day, lisinopril, Ativan 1 mg for IV push every 1 hour as needed for alcohol withdrawal symptoms. The patient is on 2 mg of IV push every 6 hours scheduled and vitamins, thiamine and folic acid, Nicoderm also was started. Labs reviewed. Hemoglobin and hematocrit 13.4 and 39.0. Chemistry reviewed. AST and ALT are climbing up. Toxicology, alcohol level was 329. MENTAL STATUS EXAMINATION: The patient appears to be alert and oriented, anxious. Upper extremity shakiness. Subjective feeling of restlessness and anxiety. Intermittent eye contact. Speech was normal rate, tone, quality and quantity, but seems to be under productive. Mood described as until good. Affect was constricted and irritable. Mood congruent. Thought process seems to be coherent and goal directed. Thought content, the patient denied visual, auditory or tactile hallucinations. Denied paranoid ideation. The patient denied thoughts of harming himself or others. Denied intent or plan. Insight and judgment seems to be fair. Impulses are well controlled. IMPRESSION: Rule out alcohol withdrawal syndrome. As per history, bipolar type 2. PLAN: Stat dose of Ativan was given to the patient p.o. This lead technical writer do not understand why the patient is on IV push of Ativan. If the patient is able to tolerate medication by mouth, it has to be switched to p.o. medication. Neurontin was increased. Remeron was started 30 mg at the nighttime for insomnia as well as mood symptoms. We will consider mood stabilizers. Continue current management. Monitor vital signs closely. Thank you very much for letting me participate in the care of this patient. Carmina Chen MD
--- NOTE | 2017-07-02 18:30 | CP.PCM.PN ---
<Yasmani Wallis - Last Filed: 07/02/17 18:24> Subjective - Date & Time of Evaluation Date of Evaluation: 07/02/17 Time of Evaluation: 07:30 - Subjective Subjective: Yasmani Wallis DO PGY1 - IM Progress Note Patient seen and examined at bedside. Per nursing staff, no acute events overnight. Patient requesting to go home. Denies chest pain, shortness of breath , fever, chills, nausea, vomiting, diarrhea, constipation. He denies suicidal ideation and homicidal ideation. Denies visual/auditory hallucination. Objective - Vital Signs/Intake and Output Vital Signs (last 24 hours): Temp Pulse Resp BP Pulse Ox 97.7 F 97 H 19 137/93 H 100 07/02/17 08:40 07/02/17 14:00 07/02/17 08:40 07/02/17 10:25 07/02/17 08:40 Intake and Output: 07/02/17 07/02/17 06:59 18:59 Intake Total 1560 Balance 1560 - Medications Medications: Current Medications Clonidine HCl (Catapres) 0.2 mg PO BID PRN PRN Reason: Systolic Blood Pressure Last Admin: 07/01/17 09:02 Dose: 0.2 mg Famotidine (Pepcid) 20 mg PO HS [facility] Folic Acid (Folic Acid) 1 mg PO DAILY [facility] Last Admin: 07/02/17 10:17 Dose: 1 mg Gabapentin (Neurontin) 600 mg PO TID ALESSANDRO PRN Reason: Protocol Last Admin: 07/02/17 17:52 Dose: 600 mg Sodium Chloride (Sodium Chloride 0.9%) 1,000 mls @ 100 mls/hr IV .Q10H [facility] Last Admin: 07/02/17 12:59 Dose: 100 mls/hr Lisinopril (Zestril) 10 mg PO DAILY [facility] Last Admin: 07/02/17 10:25 Dose: 10 mg Lorazepam (Ativan) 1 mg IVP Q1 PRN; Protocol PRN Reason: Symptoms of alcohol withdrawl Last Admin: 07/02/17 13:55 Dose: 1 mg Lorazepam (Ativan) 2 mg IVP Q6H [facility] PRN Reason: Protocol Last Admin: 07/02/17 17:51 Dose: 2 mg Mirtazapine (Remeron) 30 mg PO HS [facility] Multivitamins (Thera Tab) 1 tab PO 0800 [facility] Last Admin: 07/02/17 10:25 Dose: 1 tab Nicotine (Nicoderm Cq) 1 patch TD DAILY PRN PRN Reason: URGE TO SMOKE Last Admin: 07/01/17 23:12 Dose: 1 patch Thiamine HCl (Vitamin B1 Tab) 100 mg PO DAILY [facility] Last Admin: 07/02/17 17:53 Dose: 100 mg - Labs Labs: 07/02/17 05:00 07/02/17 05:00 - Additional Findings Additional findings: - Constitutional Appears: Non-toxic, In Acute Distress (mild) - Head Exam Head Exam: ATRAUMATIC, NORMOCEPHALIC - Eye Exam Eye Exam: EOMI, Normal appearance, PERRL - ENT Exam ENT Exam: Mucous Membranes Moist, Normal Exam - Neck Exam Neck Exam: Normal Inspection - Respiratory Exam Respiratory Exam: Clear to Ausculation Bilateral, NORMAL BREATHING PATTERN - Cardiovascular Exam Cardiovascular Exam: Tachycardia, REGULAR RHYTHM, +S1, +S2 - GI/Abdominal Exam GI & Abdominal Exam: Soft, Normal Bowel Sounds. absent: Tenderness - Extremities Exam Extremities Exam: Normal Inspection. absent: Calf Tenderness, Pedal Edema - Neurological Exam Neurological Exam: Alert, Awake, CN II-XII Intact, Oriented x3 Additional comments: Mild tremor on exam - Psychiatric Exam Psychiatric exam: Agitated, anxious - Skin Skin Exam: Dry, Intact, Normal Color Assessment and Plan - Assessment and Plan (Free Text) Assessment: Patient is a 47 year old male with past medical history of hypertension who was admitted for evaluation and treatment of acute alcohol intoxication. Ethanol Abuse, Potential Withdrawal - Patient appears to be in early stages of withdrawal, with tremor; tachycardia and hypertension improved - CIWA - high risk fall precautions - ativan 2mg q6 hours scheduled, ativan 1mg q1 prn withdrawal symptoms - multivitamin, thiamine, and folate supplement Elevated LFTS - likely 2/2 to ETOH use, ETOH level 329 - Low T bili and ALP - monitor closely via CMP Hypertensive Urgency, Hx of Htn - Improved today - Continnue lisinopril 10mg PO daily - Continue clonidine 0.2mg PO BID PRN History of Anxiety/Depression - Patient complaining of depression, but denies SI/HI - Per psych, patient is capable of making decisions, insight is fair - Psych consulted- appreciate recommendations Prophylaxis - DVT ppx- scds - GI ppx- famotidine Case discussed and reviewed with attending Dr. Terry <Gina Terry - Last Filed: 07/03/17 15:05> Objective - Vital Signs/Intake and Output Vital Signs (last 24 hours): Temp Pulse Resp BP Pulse Ox 98.1 F 77 18 162/113 H 97 07/03/17 00:00 07/03/17 02:04 07/03/17 00:00 07/03/17 02:04 07/03/17 00:00 Intake and Output: 07/03/17 07/03/17 06:59 18:59 Intake Total 180 Balance 180 - Labs Labs: 07/03/17 06:19 07/03/17 06:19 Attending/Attestation - Attestation I have personally seen and examined this patient.: Yes I have fully participated in the care of the patient.: Yes I have reviewed all pertinent clinical information, including history, physical exam and plan: Yes Notes (Text): 07/03/17 15:01 Medical record note made by the resident after discussion with my direction and input after the patient was personally seen and examined by me. I have reviewed the chart and agree that the record accurately reflects by personal performance of the history, physical exam, data review, and medical decision-making, in the course for the patient. I have also personally directed the plan of care. 47 year old male with past medical history of hypertension, depression and alcohol abuse who presented with alcohol intoxication, alcohol withdrawal are better, still very anxious.Blood pressure is better controlled.We will continue CIWA. Depression, denies any suicidal ideation.Psychiatry follow up is appreciated. Management plan was discussed in detail with patient. Education was provided.
[2017-07-03] MEDS: Sodium Chloride 0.9% 1,000 ML IV SCH (01:40)
[2017-07-03 02:06] VITALS: BP 162/113; PULSE 77
[2017-07-03 03:29] VITALS: RESP 18; TEMP 98.1; O2SAT 97
[2017-07-03 06:37] LABS: BASO # 0.02 K/mm3 (0.0-2.0); BASO % 0.3 % (0.0-3.0); EOS # 0.3 (0.0-0.7); EOS % 3.7 % (1.5-5.0); GRAN # 4.38 (1.4-6.5); GRAN % 55.5 % (50.0-68.0); HEMOGLOBIN 13.4 g/dL (14.0-18.0); LYMPH # 2.5 (1.2-3.4); LYMPH % 31.8 % (22.0-35.0); MEAN CELL VOLUME 91.8 fl (80.0-105.0); MEAN CORPUSCULAR HEMOGLOBIN 31.2 pg (25.0-35.0); MEAN PLATELET VOLUME 9.7 fl (7.0-11.0); MONO # 0.7 (0.1-0.6); MONO % 8.7 % (1.0-6.0); RBC 4.29 10^6/uL (3.5-6.1); RED CELL DISTRIBUTION WIDTH 14.6 % (11.5-14.5); WHITE BLOOD COUNT 7.9 10^3/ul (4.5-11.0)
[2017-07-03 07:06] LABS: ALB/GLOB RATIO 1.2 (1.1-1.8); ALBUMIN 3.4 g/dL (3.0-4.8); ALT/SGPT 122 U/L (7-56); AST/SGOT 177 U/L (17-59); BLOOD UREA NITROGEN 7 mg/dL (7-21); CALCIUM 8.8 mg/dL (8.4-10.5); GFR AFRICAN-AMERICAN > 60; GFR NON-AFRICAN AMERICAN > 60
--- NOTE | 2017-07-03 10:59 | CP.PCM.PCO ---
Physician Communication Note - Physician Communication Note Physician Communication Note: pt was discharged
--- NOTE | 2017-07-03 20:51 | CP.PCM.DIS ---
<KadiYasmani - Last Filed: 07/03/17 20:43> Provider - Provider Date of Admission: 07/01/17 16:11 Attending physician: Gina Terry MD Consults: Psych: Carmina Time Spent in preparation of Discharge (in minutes): 35 Diagnosis - Discharge Diagnosis (1) Alcohol dependence Status: Acute (2) Alcohol intoxication Status: Acute (3) Alcohol withdrawal Status: Acute (4) Anxiety Status: Acute (5) Depression Status: Acute Hospital Course - Lab Results Lab Results: Most Recent Lab Values WBC 7.9 10^3/ul (4.5-11.0) 07/03/17 06:19 RBC 4.29 10^6/uL (3.5-6.1) 07/03/17 06:19 Hgb 13.4 g/dL (14.0-18.0) L 07/03/17 06:19 Hct 39.4 % (42.0-52.0) L 07/03/17 06:19 MCV 91.8 fl (80.0-105.0) 07/03/17 06:19 MCH 31.2 pg (25.0-35.0) 07/03/17 06:19 MCHC 34.0 g/dl (31.0-37.0) 07/03/17 06:19 RDW 14.6 % (11.5-14.5) H 07/03/17 06:19 Plt Count 134 10^3/uL (120.0-450.0) 07/03/17 06:19 MPV 9.7 fl (7.0-11.0) 07/03/17 06:19 Gran % 55.5 % (50.0-68.0) 07/03/17 06:19 Lymph % (Auto) 31.8 % (22.0-35.0) 07/03/17 06:19 [place] % (Auto) 8.7 % (1.0-6.0) H 07/03/17 06:19 Eos % (Auto) 3.7 % (1.5-5.0) 07/03/17 06:19 Baso % (Auto) 0.3 % (0.0-3.0) 07/03/17 06:19 Gran # 4.38 (1.4-6.5) 07/03/17 06:19 Lymph # (Auto) 2.5 (1.2-3.4) 07/03/17 06:19 [place] # (Auto) 0.7 (0.1-0.6) H 07/03/17 06:19 Eos # (Auto) 0.3 (0.0-0.7) 07/03/17 06:19 Baso # (Auto) 0.02 K/mm3 (0.0-2.0) 07/03/17 06:19 Sodium 138 mmol/L (132-148) 07/03/17 06:19 Potassium 3.6 mmol/L (3.6-5.0) 07/03/17 06:19 Chloride 106 mmol/L (98-107) 07/03/17 06:19 Carbon Dioxide 27 mmol/L (21-33) 07/03/17 06:19 Anion Gap 9 (10-20) L 07/03/17 06:19 BUN 7 mg/dL (7-21) 07/03/17 06:19 Creatinine 0.8 mg/dl (0.8-1.5) 07/03/17 06:19 Est GFR ( Amer) > 60 07/03/17 06:19 Est GFR (Non-Af Amer) > 60 07/03/17 06:19 Random Glucose 84 mg/dL (70-110) 07/03/17 06:19 Calcium 8.8 mg/dL (8.4-10.5) 07/03/17 06:19 Phosphorus 2.6 mg/dL (2.5-4.5) 07/01/17 06:25 Magnesium 1.6 mg/dL (1.7-2.2) L 07/01/17 06:25 Total Bilirubin 0.5 mg/dL (0.2-1.3) 07/03/17 06:19 AST 177 U/L (17-59) H D 07/03/17 06:19 ALT 122 U/L (7-56) H 07/03/17 06:19 Alkaline Phosphatase 74 U/L (38-126) 07/03/17 06:19 Total Protein 6.1 g/dL (5.8-8.3) 07/03/17 06:19 Albumin 3.4 g/dL (3.0-4.8) 07/03/17 06:19 Globulin 2.8 gm/dL 07/03/17 06:19 Albumin/Globulin Ratio 1.2 (1.1-1.8) 07/03/17 06:19 Urine Opiates Screen Negative (NEGATIVE) 06/30/17 18:30 Urine Methadone Screen Negative (NEGATIVE) 06/30/17 18:30 Ur Barbiturates Screen Negative (NEGATIVE) 06/30/17 18:30 Ur Phencyclidine Scrn Negative (NEGATIVE) 06/30/17 18:30 Ur Amphetamines Screen Negative (NEGATIVE) 06/30/17 18:30 U Benzodiazepines Scrn Negative (NEGATIVE) 06/30/17 18:30 U Oth Cocaine Metabols Negative (NEGATIVE) 06/30/17 18:30 U Cannabinoids Screen Negative (NEGATIVE) 06/30/17 18:30 Alcohol, Quantitative 329 mg/dL (0-10) H* 06/30/17 16:30 Hepatitis A IgM Ab Negative (NEGATIVE) 07/02/17 05:00 Hep Bs Antigen Negative (NEGATIVE) 07/02/17 05:00 Hep B Core IgM Ab Negative (NEGATIVE) 07/02/17 05:00 Hepatitis C Antibody Negative (NEGATIVE) 07/02/17 05:00 - Hospital Course Hospital Course: Patient is a 47 year old male with past medical history of hypertension, anxiety , depression, and breast cyst who initially presented to the emergency department for evaluation and treatment of acute alcohol intoxication in anticipation of withdrawal. Patient had been binge drinking extremely heavily for about 2 weeks. Patient was also complaining of anxiety and depression. Patient was initially hypertensive and tachycardic, likely secondary to alcohol withdrawal, which improved with antihypertensives, as well as symptomatic treatment of his alcohol withdrawal. Patient was on CIWA protocol, and was being treated with scheduled and as-needed benzodiazepines for symptoms of withdrawal. Patient was requesting to be discharged to go home and address issues with potential divorce and subsequent homelessness. Patient was informed that he would likely still be able to make his appointments and court dates, as they were still several days away, and that his immediate, potentially life- threatening medical issues needed to be addressed before he could be safely discharged. Patient was seen by psychiatry who assisted in determining that patient was of sound mind and competent enough to make his own decisions. Today , patient decided to sign out against medical advice. He was advised that he should stay for treatment of his alcohol withdrawal, anxiety, depression, and hypertension, and that by leaving, he puts himself at risk of worsening withdrawal, seizures, and possibly . Patient verbalized understanding and acceptance of the risks of leaving, in favor of the benefits of staying, and he signed out AMA. Discharge Exam - Head Exam Head Exam: ATRAUMATIC, NORMOCEPHALIC - Eye Exam Eye Exam: Normal appearance - Neurological Exam Neurological exam: Alert, Normal Gait, Oriented x3 - Psychiatric Exam Psychiatric exam: Anxious, Depressed Additional comments: Denies suicidal ideation or homicidal ideation - Additional Findings Additional findings: Patient not fully examined, as patient was already dressed and out of bed, trying to walk out as he was encountered Discharge Plan - Follow Up Plan Condition: GUARDED Disposition: AGAINST MEDICAL ADVICE <Gina Terry - Last Filed: 07/04/17 15:01> Provider - Provider Date of Admission: 07/01/17 16:11 Attending physician: Gina Terry MD Hospital Course - Lab Results Lab Results: Most Recent Lab Values WBC 7.9 10^3/ul (4.5-11.0) 07/03/17 06:19 RBC 4.29 10^6/uL (3.5-6.1) 07/03/17 06:19 Hgb 13.4 g/dL (14.0-18.0) L 07/03/17 06:19 Hct 39.4 % (42.0-52.0) L 07/03/17 06:19 MCV 91.8 fl (80.0-105.0) 07/03/17 06:19 MCH 31.2 pg (25.0-35.0) 07/03/17 06:19 MCHC 34.0 g/dl (31.0-37.0) 07/03/17 06:19 RDW 14.6 % (11.5-14.5) H 07/03/17 06:19 Plt Count 134 10^3/uL (120.0-450.0) 07/03/17 06:19 MPV 9.7 fl (7.0-11.0) 07/03/17 06:19 Gran % 55.5 % (50.0-68.0) 07/03/17 06:19 Lymph % (Auto) 31.8 % (22.0-35.0) 07/03/17 06:19 [place] % (Auto) 8.7 % (1.0-6.0) H 07/03/17 06:19 Eos % (Auto) 3.7 % (1.5-5.0) 07/03/17 06:19 Baso % (Auto) 0.3 % (0.0-3.0) 07/03/17 06:19 Gran # 4.38 (1.4-6.5) 07/03/17 06:19 Lymph # (Auto) 2.5 (1.2-3.4) 07/03/17 06:19 [place] # (Auto) 0.7 (0.1-0.6) H 07/03/17 06:19 Eos # (Auto) 0.3 (0.0-0.7) 07/03/17 06:19 Baso # (Auto) 0.02 K/mm3 (0.0-2.0) 07/03/17 06:19 Sodium 138 mmol/L (132-148) 07/03/17 06:19 Potassium 3.6 mmol/L (3.6-5.0) 07/03/17 06:19 Chloride 106 mmol/L (98-107) 07/03/17 06:19 Carbon Dioxide 27 mmol/L (21-33) 07/03/17 06:19 Anion Gap 9 (10-20) L 07/03/17 06:19 BUN 7 mg/dL (7-21) 07/03/17 06:19 Creatinine 0.8 mg/dl (0.8-1.5) 07/03/17 06:19 Est GFR ( Amer) > 60 07/03/17 06:19 Est GFR (Non-Af Amer) > 60 07/03/17 06:19 Random Glucose 84 mg/dL (70-110) 07/03/17 06:19 Calcium 8.8 mg/dL (8.4-10.5) 07/03/17 06:19 Phosphorus 2.6 mg/dL (2.5-4.5) 07/01/17 06:25 Magnesium 1.6 mg/dL (1.7-2.2) L 07/01/17 06:25 Total Bilirubin 0.5 mg/dL (0.2-1.3) 07/03/17 06:19 AST 177 U/L (17-59) H D 07/03/17 06:19 ALT 122 U/L (7-56) H 07/03/17 06:19 Alkaline Phosphatase 74 U/L (38-126) 07/03/17 06:19 Total Protein 6.1 g/dL (5.8-8.3) 07/03/17 06:19 Albumin 3.4 g/dL (3.0-4.8) 07/03/17 06:19 Globulin 2.8 gm/dL 07/03/17 06:19 Albumin/Globulin Ratio 1.2 (1.1-1.8) 07/03/17 06:19 Urine Opiates Screen Negative (NEGATIVE) 06/30/17 18:30 Urine Methadone Screen Negative (NEGATIVE) 06/30/17 18:30 Ur Barbiturates Screen Negative (NEGATIVE) 06/30/17 18:30 Ur Phencyclidine Scrn Negative (NEGATIVE) 06/30/17 18:30 Ur Amphetamines Screen Negative (NEGATIVE) 06/30/17 18:30 U Benzodiazepines Scrn Negative (NEGATIVE) 06/30/17 18:30 U Oth Cocaine Metabols Negative (NEGATIVE) 06/30/17 18:30 U Cannabinoids Screen Negative (NEGATIVE) 06/30/17 18:30 Alcohol, Quantitative 329 mg/dL (0-10) H* 06/30/17 16:30 Hepatitis A IgM Ab Negative (NEGATIVE) 07/02/17 05:00 Hep Bs Antigen Negative (NEGATIVE) 07/02/17 05:00 Hep B Core IgM Ab Negative (NEGATIVE) 07/02/17 05:00 Hepatitis C Antibody Negative (NEGATIVE) 07/02/17 05:00 Attending/Attestation - Attestation I have personally seen and examined this patient.: Yes I have fully participated in the care of the patient.: Yes I have reviewed all pertinent clinical information, including history, physical exam and plan: Yes
== END 2017-07-03 06:38 | disposition left against medical advice (07) | DRG 894 ==
LOC: ED 15:56 → ERH 21:02 → 3RNO 23:34 → OBSVTOIN 07-01 16:11
PROVIDERS: ADMIT Internal Medicine; ATTEND Internal Medicine
DX: F10.239 Alcohol dependence with withdrawal, unspecified (principal); F31.81 Bipolar II disorder; I16.1 Hypertensive emergency; F10.229 Alcohol dependence with intoxication, unspecified; E87.6 Hypokalemia; F41.9 Anxiety disorder, unspecified; I10 Essential (primary) hypertension; Y90.8 Blood alcohol level of 240 mg/100 ml or more; Z79.899 Other long term (current) drug therapy; Z91.14 Patient's other noncompliance with medication regimen; F14.11 Cocaine abuse, in remission; F12.11 Cannabis abuse, in remission; F17.210 Nicotine dependence, cigarettes, uncomplicated; R40.2412 Glasgow coma scale score 13-15, at arrival to emergency department; G47.00 Insomnia, unspecified; R00.0 Tachycardia, unspecified; Z81.8 Family history of other mental and behavioral disorders; Z81.1 Family history of alcohol abuse and dependence

== ENCOUNTER 2017-08-16 13:05 | Observation (INO) | payer OTHER ==
[2017-08-16] MEDS ORDERED: Labetalol 5 mg/ml Inj 20ML IV ONE (13:33)
[2017-08-16 13:36] VITALS: BMI 24.3
--- NOTE | 2017-08-16 13:40 | ED PDOC ---
Arrival/HPI - General Time Seen by Provider: 08/16/17 13:14 Historian: Patient - History of Present Illness Narrative History of Present Illness (Text): 08/16/17 13:40 A 47 year old male, whose past medical history includes hypertension (compliant with medications), presents to the emergency department complaining of right- facial numbness/tingling and right hand 1st, 2nd, and 3rd digit tingling. Patient reports that the symptoms started 3 weeks ago. Patient states right- facial numbness/tingling radiates from below right eye down towards right-side chin. Notes also having experienced speech changes where when he thought more about the words to say, the more he was unable to pronounce words correctly. Patient denies any other complaints at this time. Also, patient mentions he has no history of CVA or diabetes. PMD: Dr. Luis Felipe Smith 08/16/17 15:25 Time/Duration: < week (3 weeks) Symptom Onset: Gradual Past Medical History - Provider Review Nursing Documentation Reviewed: Yes - Infectious Disease Hx of Infectious Diseases: None - Cardiac Hx Cardiac Disorders: No Hx Hypertension: Yes - Pulmonary Hx Tuberculosis: No - Neurological HX Cerebrovascular Accident: No Hx Seizures: No - Hematological/Oncological Hx Cancer: No - Musculoskeletal/Rheumatological Hx Falls: No - Genitourinary/Gynecological Hx Sexually Transmitted Diseases: No - Psychiatric Hx Anxiety: Yes Hx Depression: Yes Hx Substance Use: Yes - Surgical History Hx Breast Biopsy: Yes Hx Orthopedic Surgery: Yes (RT ELBOW) - Anesthesia Hx Anesthesia: Yes Hx Anesthesia Reactions: No Family/Social History - Physician Review Nursing Documentation Reviewed: Yes Family/Social History: No Known Family HX Smoking Status: Heavy Smoker > 10 Cigarettes Daily Hx Alcohol Use: Yes Hx Substance Use: Yes Substance used: Cocaine on sunday Allergies/Home Meds Allergies/Adverse Reactions: Allergies No Known Allergies Allergy (Verified 08/16/17 13:33) Home Medications: Home Meds Medication Instructions Recorded Confirmed cloNIDine [clonidine HCl] 0.1 mg PO TID 04/01/17 08/16/17 Mirtazapine [Remeron] 0 mg PO HS 07/01/17 08/16/17 Review of Systems - Review of Systems Constitutional: absent: Fevers Eyes: absent: Vision Changes ENT: absent: Hearing Changes Respiratory: absent: SOB, Cough, Sputum, Wheezing Cardiovascular: absent: Chest Pain Gastrointestinal: absent: Abdominal Pain, Constipation, Diarrhea, Nausea, Vomiting Musculoskeletal: absent: Arthralgias Neurological: Speech Changes (had speech changes for a while, where patient would think too much about the words he wants to say, however result in pronouncing them incorrectly.), Other (right-facial numbness/tingling, radiating from below right eye towards right-side chin; right hand 1st, 2nd, and 3rd digit tingling.). absent: Headache, Dizziness, Focal Weakness, Gait Changes, Facial Droop, Disequilibrium Psychiatric: Anxiety Physical Exam Vital Signs Temp Pulse Resp BP Pulse Ox 08/16/17 15:13 161/92 H 08/16/17 14:05 78 160/123 H 08/16/17 13:36 98.6 F 85 19 160/123 H 94 L 08/16/17 13:33 98.6 F 91 H 18 160/123 H 96 Temperature: Afebrile Blood Pressure: Hypertensive Pulse: Regular Respiratory Rate: Normal Appearance: Positive for: Well-Appearing, Non-Toxic, Comfortable Pain Distress: None Mental Status: Positive for: Alert and Oriented X 3 Finger Stick Blood Glucose: 92 - Systems Exam Head: Present: Atraumatic, Normocephalic Pupils: Present: PERRL Extroacular Muscles: Present: EOMI Conjunctiva: Present: Normal Mouth: Present: Moist Mucous Membranes Neck: Present: Normal Range of Motion. No: MIDLINE TENDERNESS Respiratory/Chest: Present: Clear to Auscultation, Good Air Exchange. No: Respiratory Distress, Accessory Muscle Use Cardiovascular: Present: Regular Rate and Rhythm, Normal S1, S2. No: Murmurs Abdomen: No: Tenderness, Distention Upper Extremity: Present: Normal Inspection. No: Cyanosis, Edema Lower Extremity: Present: Normal Inspection. No: Edema Neurological: Present: GCS=15, CN II-XII Intact, Speech Normal, Motor Func Grossly Intact, Normal Cerebellar Funct, Norm Deep Tendon Reflexes, Gait Normal , Memory Normal. No: Normal Sensory Function (decreased sensation to R lower face and R 1st-3rd fingers (entire finger)) Skin: Present: Warm, Dry, Normal Color. No: Rashes Psychiatric: Present: Alert, Oriented x 3, Normal Insight, Normal Concentration Medical Decision Making ED Course and Treatment: 08/16/17 13:45 Impression: 47 year old male with right-facial numbness/tingling and right hand 1st, 2nd, and 3rd digit tingling, onset 3 weeks ago Differential Diagnosis included but are not limited to: TIA vs cva Plan: -- EKG -- Head CT -- Chest X-ray -- Labs -- Labetalol -- Reassess and disposition Prior Visits: Notes and results from previous visits were reviewed. Patient was last seen in the emergency department on Progress Notes: EKG: Ordered, reviewed, and independently interpreted the EKG. Rate : 83 BPM Rhythm : NSR with sinus arrhythmia. Interpretation : No ST-segment elevations or depressions, no T-wave inversions, normal intervals. Comparison : No previous EKG for comparison. 08/16/2017 14:12 Chest X-ray IMPRESSION: No interval pathology noted. Dictator: Clara Al MD 08/16/2017 15:[address] IMPRESSION: No intracranial hemorrhage or mass effect. Sub cm left internal capsule lacunar apparent. Mild atherosclerotic like vascular calcifications noted. Dictator: Clara lA MD 08/16/17 15:23 Dr. Munguia evaluated patient at bedside. Medication given for BP control. Aspirin given. Xanax given for anxiety. Dr. Munguia accepts patient to remote tele. Requesting Dr. Marquez for neurology. - Lab Interpretations Lab Results: 08/16/17 13:48 08/16/17 13:48 Lab Results 08/16/17 13:48: Blood Type O POSITIVE, Antibody Screen Negative, BBK History Checked No verified bt 08/16/17 13:48: Sodium 144, Potassium 4.4, Chloride 108 H, Carbon Dioxide 25, Anion Gap 16, BUN 11, Creatinine 0.9, Est GFR ( Amer) > 60, Est GFR (Non- Af Amer) > 60, Random Glucose 97, Calcium 9.5, Total Bilirubin 0.4, AST 24, ALT 27, Alkaline Phosphatase 70, Troponin I < 0.01 D, Total Protein 7.5, Albumin 4.3, Globulin 3.2, Albumin/Globulin Ratio 1.4, Triglycerides 242 H, Cholesterol 221 H, LDL Cholesterol Direct 143 H, HDL Cholesterol 28 L 08/16/17 13:48: PT 10.8, INR 0.94, APTT 33.3 08/16/17 13:48: WBC 10.8 D, RBC 4.89, Hgb 15.7 D, Hct 44.2, MCV 90.4, MCH 32.1 , MCHC 35.5, RDW 13.6, Plt Count 326, MPV 10.2, Gran % 62.3, Lymph % (Auto) 27.6 , [place] % (Auto) 6.9 H, Eos % (Auto) 2.7, Baso % (Auto) 0.5, Gran # 6.73 H, Lymph # (Auto) 3.0, [place] # (Auto) 0.7 H, Eos # (Auto) 0.3, Baso # (Auto) 0.05 I have reviewed the lab results: Yes - RAD Interpretation Radiology Orders: 08/16/17 13:33 CHEST PORTABLE [RAD] Stat 08/16/17 13:35 HEAD W/O CONTRAST [CT] Stat - Medication Orders Current Medication Orders: Discontinued Medications Alprazolam (Xanax) 0.5 mg PO STAT STA PRN Reason: Protocol Stop: 08/16/17 15:11 Aspirin (Aspirin Chewable) 324 mg PO STAT STA Stop: 08/16/17 15:11 Labetalol HCl (Trandate) 20 mg IV ONCE ONE Stop: 08/16/17 13:34 Last Admin: 08/16/17 14:05 Dose: 20 mg eMAR Start Stop Document 08/16/17 14:05 [email or web address] (Rec: 08/16/17 14:06 [email or web address] [id number]) Intravenous Solution Start Date 08/16/17 Start Time 14:06 MAY Pulse and Blood Pressure Document 08/16/17 14:05 [email or web address] (Rec: 08/16/17 14:06 [email or web address] [id number]) Pulse Pulse Rate (60-90) 78 Blood Pressure Blood Pressure (100/60-150/90) 160/123 Metoprolol Tartrate (Lopressor) 5 mg IVP STAT STA Stop: 08/16/17 15:14 NIHSS Scale ([place]) Time Performed: 15:11 - How Severe is the Stoke Baseline Level of Consciousness: 0=Alert LOC to Questions: 0=Both comments correct LOC to commands: 0=Obeys both correctly Best Gaze: 0=Normal Visual: 0=No visual loss Facial: 0=Normal Motor Arm - Left: 0=No drift Motor Arm - Right: 0=No drift Motor Leg - Left: 0=No drift Motor Leg - Right: 0=No drift Limb Ataxia: 0=Absent Sensory: 1=Mild to moderate loss (R face) Best Language: 0=No aphasia Dysarthia: 0=Normal articulation Extinction & Inattention (Neglect): 0=Normal, no object Score: 1 Risk Level: Minor Stroke Risk rTPA Inclusion/Exclusion - Refusal of Treatment Patient Refused Treatment: No - Inclusion Criteria for Altepase Patient is 18 years or Older: Yes The Clinical Diagnosis of Ischemic Stroke That is Causing a Potentially Disabling Neurological Deficit: No Time of Onset is Well Established to be Less Than 270 Minute Before Treatment Would Begin: No Risk/Benefit Discussed With Patient/Family Member Present: No - Scribe Statement The provider has reviewed the documentation as recorded by the Sapna Stanley Provider Scribe Attestation: All medical record entries made by the Scribe were at my direction and personally dictated by me. I have reviewed the chart and agree that the record accurately reflects my personal performance of the history, physical exam, medical decision making, and the department course for this patient. I have also personally directed, reviewed, and agree with the discharge instructions and disposition. Disposition/Present on Arrival - Present on Arrival Any Indicators Present on Arrival: No History of DVT/PE: No History of Uncontrolled Diabetes: No Urinary Catheter: No History Surgical Site Infection Following: None - Disposition Have Diagnosis and Disposition been Completed?: Yes Diagnosis: CVA (cerebral vascular accident) Disposition: HOSPITALIZED Disposition Time: 13:12 Patient Plan: Observation Condition: FAIR Referrals: Luis Felipe Smith MD [Primary Care Provider] - Follow up with primary
[2017-08-16 13:59] LABS: BASO # 0.05 K/mm3 (0.0-2.0); BASO % 0.5 % (0.0-3.0); EOS # 0.3 (0.0-0.7); EOS % 2.7 % (1.5-5.0); GRAN # 6.73 (1.4-6.5); GRAN % 62.3 % (50.0-68.0); HEMOGLOBIN 15.7 g/dL (14.0-18.0); LYMPH % 27.6 % (22.0-35.0); MEAN CELL VOLUME 90.4 fl (80.0-105.0); MEAN CORPUSCULAR HEMOGLOBIN 32.1 pg (25.0-35.0); MEAN CORPUSCULAR HGB CONC 35.5 g/dl (31.0-37.0); MEAN PLATELET VOLUME 10.2 fl (7.0-11.0); MONO # 0.7 (0.1-0.6); MONO % 6.9 % (1.0-6.0); RBC 4.89 10^6/uL (3.5-6.1); RED CELL DISTRIBUTION WIDTH 13.6 % (11.5-14.5); WHITE BLOOD COUNT 10.8 10^3/ul (4.5-11.0)
[2017-08-16 14:10] LABS: INR 0.94 (0.93-1.08); PARTIAL THROMBOPLASTIN TIME 33.3 Seconds (25.1-36.5); PROTHROMBIN TIME 10.8 SECONDS (9.4-12.5)
[2017-08-16 14:12] LABS: ALB/GLOB RATIO 1.4 (1.1-1.8); ALBUMIN 4.3 g/dL (3.0-4.8); CALCIUM 9.5 mg/dL (8.4-10.5); GFR AFRICAN-AMERICAN > 60; GFR NON-AFRICAN AMERICAN > 60; HDL CHOLESTEROL 28 mg/dL (29-60)
[2017-08-16 14:14] LABS: ALT/SGPT 27 U/L (7-56); AST/SGOT 24 U/L (17-59); BLOOD UREA NITROGEN 11 mg/dL (7-21)
--- NOTE | 2017-08-16 14:14 | RAD ---
HISTORY: numbness COMPARISON: 06/30/2017 FINDINGS: LUNGS: No active pulmonary disease. PLEURA: No significant pleural effusion identified, no pneumothorax apparent. CARDIOVASCULAR: Top-normal heart size. OSSEOUS STRUCTURES: Trace smooth cortical regularity of an anterior 6th rib for either developmental variant or old healed trauma here is no change in appearance suggested similar finding of the rib just above it is also likely present. Left thoracic spondylosis. VISUALIZED UPPER ABDOMEN: Normal. OTHER FINDINGS: None. IMPRESSION: No interval pathology noted.
[2017-08-16 14:23] LABS: LDL CHOLESTEROL 143 mg/dL (0-129)
[2017-08-16 14:25] LABS: TROPONIN I < 0.01 ng/mL
--- NOTE | 2017-08-16 15:01 | CT ---
PROCEDURE: CT HEAD WITHOUT CONTRAST. HISTORY: numbness to R face COMPARISON: None available. TECHNIQUE: Axial computed tomography images were obtained through the head/brain without intravenous contrast. Radiation dose: Total exam DLP = 921 mGy-cm. This CT exam was performed using one or more of the following dose reduction techniques: Automated exposure control, adjustment of the mA and/or kV according to patient size, and/or use of iterative reconstruction technique. FINDINGS: HEMORRHAGE: No intracranial hemorrhage. BRAIN: No mass effect or edema. Mild generalized cerebral atrophy noted. A left sub cm hypodensity compatible with a lacune this is in the region of the left internal capsule. VENTRICLES: No hydrocephalus. CALVARIUM: Unremarkable. PARANASAL SINUSES: Unremarkable as visualized. No significant inflammatory changes. MASTOID AIR CELLS: Unremarkable as visualized. No inflammatory changes. OTHER FINDINGS: There are scattered a vascular calcifications supraclinoid and or in the right cerebellar hemisphere IMPRESSION: No intracranial hemorrhage or mass effect. Sub cm left internal capsule lacunar apparent. Mild atherosclerotic like vascular calcifications noted
[2017-08-16] MEDS ORDERED: Metoprolol 1 mg/ml Inj IVP STA (15:13)
[2017-08-16] MEDS ORDERED: Nitroglycerin 2% Ointment Foilpak UD TOP PRN (19:35)
--- NOTE | 2017-08-16 21:46 | CARD ---
APPROVED REPORT EKG Measurement Heart [id number] <Conclusion> Normal sinus rhythm with sinus arrhythmia Normal ECG
--- NOTE | 2017-08-17 04:38 | HP ---
DATE OF EXAM: 08/16/2017 HISTORY OF PRESENT ILLNESS: This 47-year-old male was examined at his bedside. He presented to the [facility] ER earlier today. He complained of right facial numbness, right hand tingling, intermittent headache, and stated he was having speech changes with difficulty pronouncing words correctly over the past several weeks. In the emergency room, he was noted to be highly anxious. He admitted to a history of chronic hypertension and anxiety and depression for which he is under medical treatment by his primary care physician, Dr. Luis Felipe Smith and psychiatrist, Dr. Brooks Lopez, [place], [place]. While in the emergency room, the patient underwent head CT that was reviewed and it showed a subcentimeter left internal capsule lacunar infarct. There was no intracranial hemorrhage or mass effect noted. The patient is admitted for concerns of acute CVA and need for workup of the above as well as ongoing anxiety, depression and uncontrolled hypertension. REVIEW OF SYSTEMS: HEAD REVIEW: As per HPI. EYE REVIEW: He wears glasses. EAR REVIEW: No hearing loss. THROAT REVIEW: No swallowing difficulty. NECK REVIEW: No stiffness. CARDIAC REVIEW: He admits to a history of chronic hypertension for the past several years. PULMONARY: No knowledge of cough or hemoptysis. GI: No hematemesis. No melena. : No dysuria. SKIN: No rash. VASCULAR: No claudication. PSYCHOLOGICAL: As per HPI. NEUROLOGICAL: As per HPI. HOME MEDICATIONS: Included Effexor, Inderal, Remeron, Neurontin, and clonidine. FAMILY HISTORY: Noncontributory. SURGICAL HISTORY: Unknown. PHYSICAL EXAMINATION: GENERAL: The patient extremely anxious and jittery during examination, but alert and pleasant to converse with. VITAL SIGNS: Showed temperature 98.6, respirations 18, pulse 91, blood pressure 160/123 with a pulse ox of 96% on room air. HEENT: Head: Normocephalic, atraumatic. Eyes: No icterus. Ears: Clear. Throat: Noninjected. NECK: Supple. HEART: Regular S1, S2. LUNGS: Clear. ABDOMEN: Soft. EXTREMITIES: No edema. SKIN: Without rash. NEUROLOGICAL: Motor strength grossly intact. VASCULAR: Legs warm to touch. SKIN: Without ulceration. He has multiple tattoos on his body. LABORATORY DATA: White count 10,800, hemoglobin 15.7, hematocrit 44.2, platelets 326,000. PT/INR 0.94, PTT 33.3. Sodium 144, K 4.4, chloride 108, bicarb 25, BUN 11, creatinine 0.9, random blood sugar 97. Hemoglobin A1c 6.1, normal. Bilirubin 0.4, AST 24, ALT 27, alk phos 70. Cholesterol 221, triglycerides 242, LDL 143, HDL 28. IMPRESSION AND PLAN: A 47-year-old male with newly noted head CT findings of a left internal capsule lacunar infarct in a gentleman with chronic hypertension, now uncontrolled. Chest x-ray was reviewed. It showed no active pulmonary disease and electrocardiogram reportedly showed normal sinus rhythm. The plan as discussed with emergency room physician, Rebeca Mckenzie, medical doctor who admit this patient to the cardiac unit and obtain a consultation with Dr. Dc Marquez from Neurology. He will be given a stat dose of Lopressor 5 mg IV as well as labetalol 20 mg IV one dose. He is ordered to receive Xanax 0.5 mg p.o. stat. He was given aspirin 324 mg p.o. stat. He will be put on a heart-healthy diet. I will order Lipitor 20 mg p.o. at dinner time daily. I will readjust his antihypertensive medications and place a consultation with Dr. Wilson from Psychiatry to adjust psychiatric medications during his hospital stay here. All of the above was reviewed in detail with the patient at his bedside. Greater than 75 minutes was spent in the care management, review of labs, orders, outlining of medications and reviewing x-rays and discussion with the patient and staff. All questions were answered. Eva Munguia MD JENI
--- NOTE | 2017-08-17 07:07 | CON ---
DATE: 08/16/2017 IDENTIFYING INFORMATION: The patient is a 47-year-old white male admitted through the emergency room complaining of right hand, fingers and facial numbness and tingling. These started 3 weeks ago. The patient was unable to pronounce his words correctly in the emergency room. The patient reports he has no history of cerebrovascular accident or diabetes. He has been under the care of an bobtailer, Dr. Luis Felipe Smith in [place] for a number of years. The patient informs me however that he has been treated for hypertension, and has been maintained on Inderal and clonidine for a number of years. The patient has also been noted to be very anxious. The patient is a [place] of [place], and a high school graduate. 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 He had been living in [place] with his , but they have and she has kicked him out such that he is now rotating his living arrangements with his 3 sisters, but has had to spent much time with a sister in [place] who has broken her hip and needs his help. He would prefer being with another sister for reasons not clearly defined. The patient indicates that he had been under the psychiatric care of a Dr. Garland Machado in [place] for a number of years, but found this too difficult. He has been treated for depression and anxiety although he is a vague historian about what this actually entails, he said that it occurs periodically and he gets overwhelmed. He has never been suicidal. With Dr. Machado, he was maintained on Effexor, Remeron and Neurontin. More recently because of the difficulty of getting to [place], he has switched care to a local psychiatrist, Dr. Brooks Lopez in [place], whom he has seen on a single occasion. The patient cannot clearly delineate what the sources of conflict were between he and his , but this union was childless. The patient is the youngest of his parents 5 children with he having 4 sisters. Some of them have anxiety disorders (twins) and have been in treatment for this, as was his father. His parents when he was 4 years old, he did not have much to do with his father, and subsequently grew up with his mother. His mother after heart surgery in 1997 and his father of heart disease in 2001. The patient himself indicates that he, in an attempt to medicate his intermittent anxiety, has been drinking for a number of years, probably starting in his teens, drinking large amounts of beer but intermittently. He however did not go for treatment for this according to the patient (requiring inpatient care) up until 2016. Since 2015. he was hospitalized once at [facility] for several days, including for alcohol detox, and has been hospitalized twice in [facility] (in 2015) and indicates also that he was hospitalized once in [place] although this is not clear to the patient if this was alcohol related; however, a review of the computer records reveals that he has been hospitalized a number of times, in 07/2014 for dizziness and body ache, in 04/2015 for anxiety, in 09/2015 for anxiety, in 12/2015 for a "possible seizure," for alcohol dependence and bipolar II disorder, in 07/2016 (at [facility]); in the emergency room, in 12/2016, for alcohol abuse, in 03/2017 under the care of Dr. Ashton for alcohol withdrawal, in 05/2017 for a crisis evaluation due to suicidality, in 07/2017 for alcohol withdrawal and hypokalemia. In 04/02/2017, consultation noted that the patient has been drinking for 4 straight weeks and then tried to stop, indicating he was going into withdrawal. It was then noted that he does have history of alcohol abuse, hypertension, and anxiety, and has had "bad withdrawals" in the past. Here it was noted that he has a "long history of alcoholism", having started drinking in his teens. He had at that time stated his alcohol problem got worst in 08/2015 when he started to drink heavily again engaging in binge drinking. He also complained of social anxiety and felt that he needed this to allay social anxiety. Here, it was noted that he had been an outpatient at the [facility] in [facility], had been in [facility] twice, had been in [facility] and had made various attempts to stop drinking but relapsed. It was noted that he had in 03/2017 with his relationship with his having been on and off for 14 years. At that time, he was also living with one of his sisters and was in conflict with his ex- about the possession of one of their 2 dogs. Presently, the patient appeared to be very anxious and was yawning repetitively. Presently, there does not appear to be a drug screen yet. He does show elevated triglycerides 242, cholesterol 221, cholesterol direct 143. The patient is presently taking Ativan p.r.n., Catapres b.i.d., Lipitor 20 mg, Lopressor 25 b.i.d. I will restart the patient on his Effexor, Neurontin and Remeron. My sense is that the patient is an unreliable historian. We will monitor with you. Thank you as always for this consultation. Rick Wilson MD/ PhD
--- NOTE | 2017-08-17 08:11 | CP.PCM.CON ---
History of Present Illness - History of Present Illness History of Present Illness: Neurology Consult Note for Dr. Garay Reason for consult: NIHSS 1 47yo male PMHx HTN, anxiety, depression, L breast cyst presents with 2-3 week intermittent symptoms of numbness/tingling in his fingers and right side of his face. Patient reports he has been having such symptoms that come and go with no alleviating/exacerbating factors. He also complained of some difficulty pronouncing words at times which resolved. He denied any associated focal weakness, difficulty ambulating, headache, dizziness, syncope, falls, lightheadedness, or tremors. Patient reported although the symptoms have markedly improved this AM he decided to come in last night because he "couldn't take it anymore." Patient is currently going through a divorce. He reports he hasn't drank EtOH in a couple months and deneis any illicit drug use. He does admit to heavy tobacco use. On complete ROS patient denied fever, chills, chest pain, palpitations, SOB, cough, abd pain, nausea, vomiting, bowel/bladder complaints, pain/swelling in his legs b/l. Denied any recent travel/sick contacts. ROS: 12 point review of systems negative except as indicated in HPI PMHx: hypertension, anxiety, depression, and left breast cyst PSurgHx: left breast cyst removal , R elbow surgery FamHx: mother and father- anxiety, depression, ETOH abuse SocHx: prior ETOH use- 2-3 pints of liquor daily- hasn't drank in months, tobacco use-1 ppd for 25 years , former illicit drug use- cocaine and marijuana - last taken several months ago. 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 Meds: Please see medication reconciliation PMD: [facility]: [facility] in [place] Review of Systems - Review of Systems All systems: reviewed and no additional remarkable complaints except Review of Systems: as per HPI Past Patient History - Infectious Disease Hx of Infectious Diseases: None - Past Social History Smoking Status: Heavy Smoker > 10 Cigarettes Daily - CARDIAC Hx Cardiac Disorders: Yes Hx Hypertension: Yes - PULMONARY Hx Respiratory Disorders: No - NEUROLOGICAL Hx Neurological Disorder: No - HEENT Hx HEENT Problems: No - RENAL Hx Chronic Kidney Disease: No - ENDOCRINE/METABOLIC Hx Endocrine Disorders: No - HEMATOLOGICAL/ONCOLOGICAL Hx Blood Disorders: No - INTEGUMENTARY Hx Dermatological Problems: No - MUSCULOSKELETAL/RHEUMATOLOGICAL Hx Musculoskeletal Disorders: No Hx Falls: No - GASTROINTESTINAL Hx Gastrointestinal Disorders: No - GENITOURINARY/GYNECOLOGICAL Hx Genitourinary Disorders: No - PSYCHIATRIC Hx Psychophysiologic Disorder: Yes Hx Anxiety: Yes Hx Depression: Yes Hx Substance Use: Yes - SURGICAL HISTORY Hx Surgeries: Yes Hx Orthopedic Surgery: Yes (RT ELBOW) - ANESTHESIA Hx Anesthesia: Yes Hx Anesthesia Reactions: No Meds Allergies/Adverse Reactions: Allergies Allergy/AdvReac Type Severity Reaction Status Date / Time No Known Allergies Allergy Verified 08/16/17 13:33 - Medications Medications: Current Medications Acetaminophen (Tylenol 325mg Tab) 650 mg PO Q6H PRN PRN Reason: pain or fever Atorvastatin Calcium (Lipitor) 20 mg PO DIN [facility] Last Admin: 08/16/17 19:55 Dose: 20 mg Clonidine HCl (Catapres) 0.1 mg PO BID [facility] Gabapentin (Neurontin) 300 mg PO TID [facility] PRN Reason: Protocol Lorazepam (Ativan) 0.5 mg PO Q6H PRN PRN Reason: Anxiety Metoprolol Tartrate (Lopressor) 25 mg PO BID [facility] Last Admin: 08/16/17 19:55 Dose: 25 mg Mirtazapine (Remeron) 30 mg PO HS [facility] Last Admin: 08/16/17 23:31 Dose: 30 mg Nicotine (Nicoderm Cq) 1 patch TD DAILY [facility] Last Admin: 08/16/17 20:57 Dose: 1 patch Nitroglycerin (Nitro-Bid 2% Oint) 1 ea TOP Q4H PRN PRN Reason: hypertension Last Admin: 08/16/17 20:58 Dose: 1 ea Venlafaxine HCl (Effexor Xr) 75 mg PO DAILY [facility] Physical Exam - Constitutional Appears: Non-toxic, No Acute Distress - Head Exam Head Exam: ATRAUMATIC, NORMAL INSPECTION, NORMOCEPHALIC - Eye Exam Eye Exam: EOMI, PERRL. absent: Conjunctival injection, Normal appearance, Scleral icterus Pupil Exam: NORMAL ACCOMODATION - ENT Exam ENT Exam: Mucous Membranes Moist - Neck Exam Neck exam: Positive for: Full Rom, Normal Inspection - Respiratory Exam Respiratory Exam: NORMAL BREATHING PATTERN. absent: Accessory Muscle Use, Respiratory Distress - Cardiovascular Exam Cardiovascular Exam: +S1, +S2. absent: Systolic Murmur - GI/Abdominal Exam GI & Abdominal Exam: Soft. absent: Tenderness - Rectal Exam Rectal Exam: Deferred - Extremities Exam Extremities exam: Positive for: normal capillary refill, normal inspection, pedal pulses present. Negative for: pedal edema - Back Exam Back exam: NORMAL INSPECTION. absent: rash noted - Neurological Exam Neurological exam: Alert, CN II-XII Intact, Normal Gait, Oriented x3 Additional comments: no pronator drift sensation intact in all 4 extremities strength 5/5 in all 4 extremities patient was yawning continuously throughout exam finger to nose intact - Expanded Neurological Exam Expanded Neurological exam: Protecting the Airway Patient oriented to: person, place, time Speech: Fluid Speech Cranial nerves: EOM's Intact: Normal, Facial Palsey w/Forehead Movement: Normal , Facial Palsey w/o Forehead Movement: Normal, Facial Sensation: Normal, Gag Reflex: Normal, Nystagmus: Normal, Tongue Deviation: Normal Ataxia: No Cerebellar Function: Finger to Nose: Normal Upper motor neuron: Pronator Drift: Normal Neuro motor strength exam: Left Upper Extremity: 5, Right Upper Extremity: 5, Left Lower Extremity: 5, Right Lower Extremity: 5 Coma Scale Eye Opening: SPONTANEOUS Coma Scale Motor Response: OBEYS COMMANDS Coma Scale Verbal: Oriented Coma Scale Total: 15 Results - Vital Signs Recent Vital Signs: Last Vital Signs Temp 98.2 F 08/16/17 22:01 Pulse 70 08/16/17 22:01 Resp 19 08/16/17 22:01 BP 170/99 H 08/16/17 22:01 Pulse Ox 95 08/16/17 22:01 - Labs Result Diagrams: 08/16/17 13:48 08/16/17 13:48 Assessment & Plan - Assessment and Plan (Free Text) Assessment: 47yo male PMHx HTN, anxiety, depression, L breast cyst presents with 2-3 week intermittent symptoms of numbness/tingling in his fingers and right side of his face. Neuro consulted for NIHSS 1 Plan: -symptoms resolved this AM- numbness/tingling likely radiculopathy -CT head: no intracranial hemorrhage/mass effect. Sub cm left internal capsule lacunar apparent. Mild atherosclerotic like vascular calcifications noted. -symptoms likely not stroke/seizure origin- agree with psych consult -f/u MRI -f/u Echo -f/u carotid duplex -maintain normotension -continue asa, lipitor, and BP meds -recommend smoking cessation -continue medical management Discussed with Dr. Jarrod Henning PGY2
[2017-08-17] MEDS: Venlafaxine 75 mg ER Cap PO SCH (11:22)
--- NOTE | 2017-08-17 11:50 | PCM.PYCHPN ---
Psychiatric Progress Note - Psychiatric Progress Note Patient seen today, length of contact: 25 Patient Chief Complaint: Anxiety and tingling sensations in his right lower extremity and right face Problems Identified/Issues Discussed: Patient appears somewhat enigmatic. Has a long alcohol history and a history of other substance use there is cocaine, marijuana. He is not considered to be an accurate historian. He is exhibiting an unusual amount of yawning. This is usually associated with opiate withdrawal. Drug screen is opiate dependent negative. Perhaps has been using a special effects designer drugs type opiate not screen a bowl on usual drug screen. Relationship to very small [id number] lacunar infarct unlikely. Might consider feedback from neurology I have reinstituted patient's previously prescribed psychotropic medication Case reviewed with consulting house doctor. Medical Problems: History of hypertension. Perhaps alcohol related. Left breast cyst removal. Small lacunar infarctrelationship to yawning on certain Diagnostic Results: Laboratory Results - last 72 hr 08/16/17 08/16/17 08/16/17 13:48 13:48 13:48 WBC 10.8 D RBC 4.89 Hgb 15.7 D Hct 44.2 MCV 90.4 MCH 32.1 MCHC 35.5 RDW 13.6 Plt Count 326 MPV 10.2 Gran % 62.3 Lymph % (Auto) 27.6 [place] % (Auto) 6.9 H Eos % (Auto) 2.7 Baso % (Auto) 0.5 Gran # 6.73 H Lymph # (Auto) 3.0 [place] # (Auto) 0.7 H Eos # (Auto) 0.3 Baso # (Auto) 0.05 PT 10.8 INR 0.94 APTT 33.3 Sodium 144 Potassium 4.4 Chloride 108 H Carbon Dioxide 25 Anion Gap 16 BUN 11 Creatinine 0.9 Est GFR ( Amer) > 60 Est GFR (Non-Af Amer) > 60 Random Glucose 97 Hemoglobin A1c Calcium 9.5 Total Bilirubin 0.4 AST 24 ALT 27 Alkaline Phosphatase 70 Troponin I < 0.01 D Total Protein 7.5 Albumin 4.3 Globulin 3.2 Albumin/Globulin Ratio 1.4 Triglycerides 242 H Cholesterol 221 H LDL Cholesterol Direct 143 H HDL Cholesterol 28 L Blood Type Blood Type Confirm Antibody Screen BBK History Checked 08/16/17 08/16/17 08/16/17 13:48 13:48 15:10 WBC RBC Hgb Hct MCV MCH MCHC RDW Plt Count MPV Gran % Lymph % (Auto) [place] % (Auto) Eos % (Auto) Baso % (Auto) Gran # Lymph # (Auto) [place] # (Auto) Eos # (Auto) Baso # (Auto) PT INR APTT Sodium Potassium Chloride Carbon Dioxide Anion Gap BUN Creatinine Est GFR ( Amer) Est GFR (Non-Af Amer) Random Glucose Hemoglobin A1c 6.1 Calcium Total Bilirubin AST ALT Alkaline Phosphatase Troponin I Total Protein Albumin Globulin Albumin/Globulin Ratio Triglycerides Cholesterol LDL Cholesterol Direct HDL Cholesterol Blood Type O POSITIVE Blood Type Confirm O POSITIVE Antibody Screen Negative BBK History Checked No verified bt DSM 5 Symptoms Update: Appears essentially unchanged from yesterday. Medication Change: No Medical Record Reviewed: Yes Mental Status Examination - Cognitive Function Orientation: Person, Place, Situation, Time Memory: Intact Attention: WNL Concentration: Poor Association: WNL Fund of Knowledge: Poor Decription of patient's judgement and insights: Limited - Mood Mood: Anxious - Affect Affect: Constricted - Speech Speech: Soft - Formal Thought Process Formal Thought Process: Other Psychotic Thoughts and Behaviors: Denied - Suicidal Ideation Suicidal Ideation: No - Homicidal Ideation Homicidal Ideation: No Goal/Treatment Plan - Goal/Treatment Plan Progress Toward Problem(s) and Goals/Treatment Plan: Continue to monitor. The Will get a neurology consultation feedback
[2017-08-17] MEDS ORDERED: Gadodiamide 287 MG/ML VIAL (20ML) IV ONE (14:25)
--- NOTE | 2017-08-17 15:31 | MRI ---
PROCEDURE: MRI BRAIN WITH AND WITHOUT CONTRAST HISTORY: stroke or ms COMPARISON: None. TECHNIQUE: Multiplanar, multisequence MR images of the brain were obtained with and without intravenous contrast enhancement. 20 cc of Omniscan FINDINGS: HEMORRHAGE: None DWI: No evidence of an acute or early subacute infarction. BRAIN PARENCHYMA: No mass,mass effect or edema. There is some subcortical encephalomalacia in the left parietal lobe ENHANCEMENT: There is an enhancing vessel along the anterior surface of the postcentral gyrus on the left. This is of doubtful significance. VENTRICLES: Unremarkable. No hydrocephalus. CRANIUM: Unremarkable. ORBITS: Grossly unremarkable. PARANASAL SINUSES/MASTOIDS: Clear VASCULAR SYSTEM: Skull base flow voids intact. OTHER FINDINGS: None . IMPRESSION: No acute intracranial findings.
--- NOTE | 2017-08-17 15:53 | US ---
PROCEDURE: Bilateral carotid artery duplex ultrasound HISTORY: Carotid stenosis CVA PHYSICIAN(S): Dago Galdamez MD. TECHNIQUE: Duplex sonography and color-flow Doppler were used to evaluate the carotid bifurcations and limited segments of the vertebral arteries bilaterally. FINDINGS: There is mild smooth hypoechoic plaque noted at the carotid bifurcations bilaterally. The peak systolic velocity in the proximal right internal carotid artery is 115 cm/sec. This corresponds to a 40-59 percent proximal right ICA stenosis. Normal systolic velocities are noted in the proximal right external carotid artery. There is antegrade flow in the right vertebral artery. The peak systolic velocity in the proximal left internal carotid artery is 107 cm/sec. This corresponds to a 40-59 percent proximal left ICA stenosis. Normal systolic velocities are noted in the proximal left external carotid artery. There is antegrade flow in the left vertebral artery. IMPRESSION: 1. Bilateral 40-59 percent proximal ICA stenoses. 2. Antegrade flow in both vertebral arteries.
--- NOTE | 2017-08-17 16:54 | CARD ---
APPROVED REPORT EXAM: Two-dimensional and M-mode echocardiogram with Doppler and color Doppler. INDICATION CVA/TIA 2D DIMENSIONS Left Atrium (2D)3.2 (1.6-4.0cm)IVSd1.4 (0.7-1.1cm) LVDd5.0 (3.9-5.9cm)PWd1.1 (0.7-1.1cm) LVDs3.3 (2.5-4.0cm)FS (%) 33.8 % LVEF (%)62.3 (>50%) M-Mode DIMENSIONS Aortic Root3.40 (2.2-3.7cm)Aortic Cusp Exc.1.70 (1.5-2.0cm) Aortic Valve AoV Peak Ckleflai778.0cm/Jamie Peak GR.9mmHg Mitral Valve MV E Riwhrfyj49.2cm/sMV A Tqrhpooo31.7cm/sE/A ratio0.8 TDI E/Lateral E'0.0E/Medial E'0.0 Tricuspid Valve TR Peak [id number]/sRAP [id number] Peak Gr.16mmHg [id number] LEFT VENTRICLE The left ventricle is normal size. There is mild concentric left ventricular hypertrophy. The left ventricular function is normal. The left ventricular ejection fraction is within the normal range. There is normal LV segmental wall motion. Transmitral Doppler flow pattern is Grade I-abnormal relaxation pattern. RIGHT VENTRICLE The right ventricle is normal size. There is normal right ventricular wall thickness. The right ventricular systolic function is normal. ATRIA The left atrium size is normal. The right atrium size is normal. AORTIC VALVE The aortic valve is normal in structure. No aortic regurgitation is present. There is no aortic valvular stenosis. MITRAL VALVE The mitral valve is normal in structure. There is no mitral valve regurgitation noted. TRICUSPID VALVE The tricuspid valve is normal in structure. There is trace tricuspid regurgitation. GREAT VESSELS The aortic root is normal in size. The IVC is normal in size and collapses >50% with inspiration. <Conclusion> The left ventricle is normal size. There is mild concentric left ventricular hypertrophy. The left ventricular function is normal. The left ventricular ejection fraction is within the normal range. There is normal LV segmental wall motion. Transmitral Doppler flow pattern is Grade I-abnormal relaxation pattern.
--- NOTE | 2017-08-17 17:36 | CON ---
DATE: HISTORY OF PRESENT ILLNESS: A 47-year-old white male with no significant medical history, had complained of tingling and numbness of the right hand and right face two weeks ago, and the patient came to the hospital to check himself out and denies any other complaints and has also been treated for hypertension and is on Inderal and clonidine, and lives in [place]. PAST MEDICAL HISTORY: Hypertension. PHYSICAL EXAMINATION: HEENT: Normocephalic, atraumatic. NEUROLOGIC: Cranial nerves II through XII tested. Pupils reactive. EOM intact. Visual abdi full. No facial asymmetry. Tongue midline. Motor examination: Spontaneous movement of extremities noted. Deep tendon reflexes are 1+. Both plantars are downgoing. Sensory appears intact. Cerebellar, gait normal. IMPRESSION: Transient ischemic attack and CAT scan has a lacunar infarct in the left internal capsule, which is old now. Past medical history of hypertension, anxiety, and depression. Workup in progress. Continue present management. We will follow up. I think we will start aspirin 325 mg p.o. daily. Gerald Marquez MD
--- NOTE | 2017-08-17 20:39 | PN ---
DATE: 08/17/2017 SUBJECTIVE: This 47-year-old male was examined at his bedside on the cardiac unit and case was reviewed in detail with himself, nurse, Nga Robison, registered nurse, Dr. Gerald Marquez,from Neurology, and Dr. Wilson from Psychiatry. The patient was admitted with a newly noted left internal capsule lacunar infarct, extreme anxiety, accelerated hypertension, recurrent depression, and complaints of right leg and hand numbness and slurred speech. The patient was seen in psychiatric consultation by Dr. Wilson who concurs with the patient's chronic diagnoses of chronic anxiety, recurrent depression, chronic alcoholism, and has placed the patient on medication including Effexor 75 mg p.o. daily, Neurontin 300 mg p.o. t.i.d., and Remeron 30 mg p.o. at bedtime. 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 He denies any fever, chills, chest pain, or shortness of breath and remains highly anxious. PHYSICAL EXAMINATION: VITAL SIGNS: Temperature is 97.9, respirations 18, pulse 78, and blood pressure 164/90 with a pulse ox of 98% on room air. HEENT: Head is normocephalic, atraumatic. Eyes: No icterus. Ears: Clear. Throat: Noninjected. NECK: Supple. HEART: Regular, S1 and S2. No pathological rubs, murmurs, or gallops. LUNGS: Clear. ABDOMEN: Soft. EXTREMITIES: No clubbing, cyanosis, or edema. SKIN: No ulcerations. VASCULAR: Legs warm to touch. PSYCHOLOGIC: High anxiety. NEUROLOGIC: No motor weakness. LABORATORY DATA: White count 10,800, hemoglobin 15.7, hematocrit 44.2, and platelets 326,000. PT/INR 0.94, PTT 33.3. Sodium 144, K 4.4, chloride 108, bicarb 25. BUN 11, creatinine 0.9. Random blood sugar 97. Hemoglobin A1c 6.1. Bilirubin 0.4, AST 24, ALT 27, alk phos 70. Cholesterol 221, triglycerides 242, LDL 143, HDL 28. IMPRESSION: A 47-year-old male with a newly noted left internal capsule lacunar infarct, accelerated hypertension, chronic anxiety, chronic recurrent depression, alcohol abuse and misuse, hyperlipidemia, and smoking abuse and misuse. PLAN: Discussed with the patient will be to obtain neurological evaluation with Dr. Gerald Marquez who has ordered a 2D echocardiogram and brain MRI. He continues on a heart-healthy diet and is receiving adjusted antihypertensive medication including metoprolol 25 mg p.o. b.i.d. with nitroglycerin 1 inch to chest wall every 4 hours if systolic blood pressure is greater than 160 or diastolic blood pressure is greater than 100. He will continue on Remeron 30 mg p.o. at bedtime, nicotine smoking patch 14 mg every 24 hours, Neurontin 300 mg p.o. t.i.d., Lipitor 20 mg p.o. at dinner time, Effexor 75 mg p.o. daily, clonidine 0.1 mg p.o. b.i.d., Ativan 0.5 mg p.o. every 6 hours p.r.n. anxiety, and Ecotrin 81 mg p.o. daily. Pending the results of brain MRI, carotid ultrasound, echocardiography, and followup opinions of Neurology and Psychiatry. The patient will be readied for discharge with outpatient followup with his PMD, Dr. Smith in [place] and Dr. Dr. Brooks Lopez, his psychiatrist in [place]. Greater than 35 minutes was spent in the care management, review of labs, orders, x-rays, discussion with co-consultants and patient and Nursing. All questions were answered. Eva Munguia MD MTDGonzalo
[2017-08-18 08:23] VITALS: BP 144/103; PULSE 64; RESP 18; TEMP 98.3; O2SAT 98
[2017-08-18] MEDS: Venlafaxine 75 mg ER Cap PO SCH (09:39)
--- NOTE | 2017-08-19 05:56 | DS ---
DATE OF EXAM; 08/18/2017 FINAL DIAGNOSES: Left internal capsule lacunar infarct, chronic hypertension, chronic anxiety neurosis, chronic recurrent depression, alcohol abuse and misuse, chronic alcoholism, history of smoking abuse and misuse. DISPOSITION: Home. FOLLOWUP: Follow up with Dr. Kline, PMD in [facility] in 48 hours. Follow up with Dr. Brooks Lopez, Psychiatry within the next 48 hours. CONSULTANTS: Dr. Wilson from Psychiatry and Dr. Marquez from Neurology. DISCHARGE MEDICATIONS: Effexor 150 mg p.o. daily Lopressor 25 mg p.o. b.i.d., Ecotrin 81 mg p.o. daily, Clonidine 0.1 mg p.o. b.i.d., Lipitor 20 mg p.o. at dinner time, Neurontin 300 mg p.o. t.i.d., Nicoderm smoking patch 14 mg every 24 hours, Remeron 30 mg p.o. at bedtime. SUMMARY This 47-year-old male presented to [facility] ER and was found to have a left internal capsule lacunar infarct on CAT scan of the brain in the setting of right hand numbness as well as previous history of slurred speech and chronic alcohol abuse and misuse and smoking abuse and misuse and accelerated hypertension. He was admitted to the cardiac unit, had medication adjusted, was seen in consultation by Dr. Wilson from Psychiatry and Dr. Marquez from Neurology. He underwent diagnostic testing and was found to have an unremarkable brain MRI for further stroke or hemorrhage and 2-D echocardiogram that was consistent with left ventricular hypertrophy and carotid ultrasound consistent with 50% carotid artery stenosis. The patient was counseled on the need for psychiatric followup and adjustment of outpatient medications with his PMD regarding chronic hypertension and the need to consider an alcohol detox program as well as Alcohol Anonymous for support system with a sponsor regarding his multiple psychosocial needs and high anxiety and use of alcohol as a sedative. At the time of discharge, temperature was 98.3, respirations 18, pulse 64 and blood pressure 134/84 with a pulse ox of 96% on room air. White count was 10,800, hemoglobin 15.7, hematocrit 44.2, platelets at 326,000. Sodium 144, K 4.4, chloride 108, bicarb 25, BUN 11, creatinine 0.9, random blood sugar 97 with a hemoglobin A1c of 6.1. All liver function testing was normal including bilirubin 0.4, AST 24, ALT 27 and alkaline phosphatase 70. Cholesterol 221, LDL 143, triglycerides 242 and HDL 28. As noted before, the patient was advised to follow up with PMD for further management of the above issues including abnormal carotid ultrasound that will need serial monitoring. Echocardiography showing left ventricular hypertrophy consistent with chronic accelerated hypertension and head CT that showed a left thalamic lacunar infarct that will need additional followup as well and carotid ultrasound that will need to be monitored regarding his moderate bilateral carotid artery stenosis. His chest x-ray showed no active pulmonary disease. An EKG showed normal sinus rhythm with nonspecific ST-T wave changes. Hopefully, the patient will be compliant with recommendations as listed above. These were discussed in the presence of his nurse, Esthela Chung, registered nurse. Eva Munguia MD MTDGonzalo
== END 2017-08-18 14:53 | disposition home or self-care (01) ==
LOC: ED 13:05 → ERH 15:09 → INTOOBSV 19:48 → OBSVTOIN 19:48 → 3RNO 20:18
PROVIDERS: ADMIT Internal Medicine; ATTEND Internal Medicine
DX: G45.9 Transient cerebral ischemic attack, unspecified (principal); E78.1 Pure hyperglyceridemia; E78.5 Hyperlipidemia, unspecified; F10.20 Alcohol dependence, uncomplicated; F11.23 Opioid dependence with withdrawal; F41.1 Generalized anxiety disorder; I10 Essential (primary) hypertension; Z86.73 Personal history of transient ischemic attack (TIA), and cerebral infarction without residual deficits; F33.9 Major depressive disorder, recurrent, unspecified; R29.701 NIHSS score 1; Z72.0 Tobacco use; Z79.82 Long term (current) use of aspirin; Z79.899 Other long term (current) drug therapy; Z81.8 Family history of other mental and behavioral disorders; Z82.49 Family history of ischemic heart disease and other diseases of the circulatory system
CPT/HCPCS: 70450; 70553; 71045; 80053; 80061; 83036; 84484; 85025; 85610; 85730; 86850; 86900; 93005; 93306; 93880; 96374; 97116; 97161; 99285; A9579; G0378; G8978; G8979; G8980

== ENCOUNTER 2017-10-16 21:03 | Inpatient (IN) | payer OTHER ==
[2017-10-16 21:10] VITALS: BMI 24.3
[2017-10-16] MEDS ORDERED: TDAP Vaccine 0.5 mL Syr IM ONE (21:19)
[2017-10-16] MEDS ORDERED: Multivitamin (MVI) 10 ML, Thiamine 100 MG, Folic Acid 1 MG in Sodium Chloride 0.9% 1,00... IV ONE (21:23)
--- NOTE | 2017-10-16 21:23 | ED PDOC ---
Arrival/HPI - General Chief Complaint: Trauma Time Seen by Provider: 10/16/17 21:09 Historian: Patient - History of Present Illness Narrative History of Present Illness (Text): 10/16/17 21:20 47-year-old male with a history of CVA presents today with multiple syncopal episodes at home. Patient states he's been binge drinking for the past 5 days and today he has been passing out throughout the day. Patient states this time he passed out and hit his head sustaining a laceration. He denies headache dizziness or weakness. Denies neck or back pain. No chest pain or shortness of breath. Patient states she is feeling depressed. Patient denies urinary symptoms. Patient states occasionally he smokes marijuana. Patient denies bladder or bowel incontinence. Patient denies numbness or weakness in any of the extremities. Incident occurred prior to arrival. Patient unsure of his last tetanus shot. Time/Duration: Prior to Arrival Past Medical History - Provider Review Nursing Documentation Reviewed: Yes - Travel History Have you recently traveled outside [place] w/in the past 3 mons?: No - Infectious Disease Hx of Infectious Diseases: None - Tetanus Immunization Tetanus Immunization: Unknown - Cardiac Hx Cardiac Disorders: Yes Hx Hypertension: Yes - Pulmonary Hx Respiratory Disorders: No - Neurological Hx Neurological Disorder: No - HEENT Hx HEENT Disorder: No - Renal Hx Renal Disorder: No - Endocrine/Metabolic Hx Endocrine Disorders: No - Hematological/Oncological Hx Blood Disorders: No - Integumentary Hx Dermatological Disorder: No - Musculoskeletal/Rheumatological Hx Musculoskeletal Disorders: No Hx Falls: No - Gastrointestinal Hx Gastrointestinal Disorders: No - Genitourinary/Gynecological Hx Genitourinary Disorders: No - Psychiatric Hx Psychophysiologic Disorder: Yes Hx Anxiety: Yes Hx Depression: Yes Hx Substance Use: Yes - Surgical History Hx Orthopedic Surgery: Yes (RT ELBOW) - Anesthesia Hx Anesthesia: Yes Hx Anesthesia Reactions: No Family/Social History - Physician Review Nursing Documentation Reviewed: Yes Family/Social History: Unknown Family HX Smoking Status: Heavy Smoker > 10 Cigarettes Daily Hx Alcohol Use: Yes Frequency of alcohol use: Daily Hx Substance Use: Yes Substance used: Cocaine on sunday Allergies/Home Meds Allergies/Adverse Reactions: Allergies No Known Allergies Allergy (Verified 10/16/17 21:12) Home Medications: Home Meds Medication Instructions Recorded Confirmed cloNIDine [Catapres] 0.1 mg PO TID 04/01/17 08/16/17 Mirtazapine [Remeron] 0 mg PO HS 07/01/17 08/16/17 Review of Systems - Review of Systems Constitutional: absent: Fatigue, Fevers Eyes: absent: Vision Changes, Photophobia, Eye Pain Respiratory: absent: SOB, Cough Cardiovascular: Syncope. absent: Chest Pain, Palpitations Gastrointestinal: absent: Abdominal Pain, Nausea, Vomiting Genitourinary Male: absent: Dysuria Musculoskeletal: absent: Arthralgias, Back Pain, Neck Pain Skin: Laceration. absent: Rash, Pruritis Neurological: absent: Headache, Dizziness Psychiatric: Depression, Suicidal Ideation. absent: Anxiety Physical Exam Vital Signs Reviewed: Yes Vital Signs Temp Pulse Resp BP Pulse Ox 10/16/17 21:12 98.2 F 75 18 102/69 97 10/16/17 21:10 77 18 102/69 98 Temperature: Afebrile Blood Pressure: Normal Pulse: Regular Respiratory Rate: Normal Appearance: Positive for: Well-Appearing, Non-Toxic, Comfortable Pain Distress: None Mental Status: Positive for: Alert and Oriented X 3 - Systems Exam Head: Present: Laceration (large 5cm flap laceration noted to the right forehead extending to the scalp. no active bleeding.) Pupils: Present: PERRL Extroacular Muscles: Present: EOMI Conjunctiva: Present: Normal Ears: Present: Normal, NORMAL TM, Normal Canal Mouth: Present: Moist Mucous Membranes Nose (External): Present: Atraumatic Nose (Internal): Present: Normal Inspection. No: Septal Hematoma Neck: Present: Normal Range of Motion, Trachea Midline. No: MIDLINE TENDERNESS , Paraspinal Tenderness Respiratory/Chest: Present: Clear to Auscultation, Good Air Exchange. No: Respiratory Distress, Accessory Muscle Use Cardiovascular: Present: Regular Rate and Rhythm, Normal S1, S2. No: Murmurs Abdomen: No: Tenderness, Distention, Peritoneal Signs, Rebound, Guarding Back: Present: Normal Inspection. No: Midline Tenderness, Paraspinal Tenderness Upper Extremity: Present: Normal ROM Lower Extremity: Present: Normal ROM Neurological: Present: GCS=15, Speech Normal Skin: Present: Warm, Dry, Normal Color. No: Rashes Psychiatric: Present: Alert, Oriented x 3, Depressed Mood Medical Decision Making ED Course and Treatment: 10/16/17 21:24 47yr old male presents today with syncope and ETOH use with head laceration. cbc: 11.3 cmp: bun; 20/ Cr; 1.9 etoh; 326 UA: UDS: pt/inr: wnl ekg; NSR at 73b/m no st elevations, normal axis. cxr; wnl trop; wnl tetanus updated. ct head; FINDINGS: Brain: Small vessel ischemic/degenerative changes. No hemorrhage. Ventricles: Unremarkable. No ventriculomegaly. Bones/joints: Unremarkable. No acute fracture. Soft tissues: Right anterior scalp laceration. No foreign body. Vasculature: Small amount of gas in the cavernous sinus was likely introduced by injection. This is of doubtful clinical significance. Sinuses: Unremarkable as visualized. No acute sinusitis. Mastoid air cells: Unremarkable as visualized. No mastoid effusion. IMPRESSION: 1. Small vessel ischemic/degenerative changes. 2. Right anterior scalp laceration. No foreign body. wound irrigated with copious amounts of NS using high pressure irrigation laceration repair: 16 sutures placed case discussed with dr. shepherd; accepts admission impression: etoh, renal insufficiency, head injury, scalp laceration admit to tele - Lab Interpretations Lab Results: 10/16/17 22:16 10/16/17 22:16 Lab Results 10/16/17 22:16: Alcohol, Quantitative 326 H* 10/16/17 22:16: Salicylates < 1 L, Acetaminophen < 10.0 L 10/16/17 22:16: WBC 11.3 H, RBC 4.45, Hgb 14.4, Hct 39.9 L, MCV 89.7, MCH 32.4, MCHC 36.1, RDW 14.2, Plt Count 226, MPV 9.5, Gran % 70.6 H, Lymph % (Auto) 21.8 L, Petroleum % (Auto) 7.1 H, Eos % (Auto) 0.1 L, Baso % (Auto) 0.4, Gran # 7.96 H, Lymph # (Auto) 2.5, Petroleum # (Auto) 0.8 H, Eos # (Auto) 0.0, Baso # (Auto) 0.04 10/16/17 22:16: Sodium 133, Potassium 4.1, Chloride 97 L, Carbon Dioxide 20 L, Anion Gap 21 H, BUN 20, Creatinine 1.9 H, Est GFR ( Amer) 46, Est GFR ( Non-Af Amer) 38, Random Glucose 94, Calcium 8.2 L, Total Bilirubin 0.4, AST 45, ALT 40, Alkaline Phosphatase 77, Lactate Dehydrogenase 481, Total Creatine Kinase 93, Troponin I < 0.01, Total Protein 6.7, Albumin 4.0, Globulin 2.7, Albumin/Globulin Ratio 1.5 10/16/17 22:16: PT 10.1, INR 0.89 L, APTT 23.8 L - RAD Interpretation Radiology Orders: 10/16/17 21:16 HEAD W/O CONTRAST [CT] Stat 10/16/17 21:17 CHEST PORTABLE [RAD] Stat - Medication Orders Current Medication Orders: Sodium Chloride (Sodium Chloride 0.9%) 1,000 mls @ 100 mls/hr IV .Q10H ALESSANDRO Discontinued Medications Multivitamins/Vitamin C 10 ml/Thiamine HCl 100 mg/ Folic Acid 1 mg/ Sodium Chloride 1,011.2 mls @ 1,000 mls/hr IV .Q1H1M ONE Stop: 10/16/17 22:23 Last Admin: 10/16/17 21:50 Dose: 1,000 mls/hr eMAR Start Stop Document 10/16/17 21:50 JOL (Rec: 10/16/17 22:[address] [facility] [id number] Intravenous Solution Start Date 10/16/17 Start Time 21:50 Tetanus/Reduced Diphtheria/Acell Pertussis (Boostrix Vaccine Inj) 0.5 ml IM .ONCE ONE Stop: 10/16/17 21:20 Procedure: Wound Repair - Procedure Procedure: Wound Repair: scalp laceration - Performed by Performed by: Mid-level Provider - Indications Indication(s):: Laceration - Location Location:: Right, Anterior, Scalp Shape:: Other (jagged) Dimensions Length cm: 5cm Depth:: Subcutaneous fascia - Anesthetic Technique Anesthetic Technique: Local Local/Regional Anesthetic:: Lidocaine 1% (4cc) - Debris Debris:: None - Irrigated Irrigated with ml of normal saline: copious amounts of NS using high pressure irrigation - Complexity Complexity:: Simple (one layer) - Wound repair method Sutures:: # (16), Size (6.0), Type (nylon), Technique (interrupted) - Complications Complications: none - Patient tolerated procedure Patient Tolerated Procedure:: Well Disposition/Present on Arrival - Present on Arrival Any Indicators Present on Arrival: No History of DVT/PE: No History of Uncontrolled Diabetes: No Urinary Catheter: No History of Decub. Ulcer: No History Surgical Site Infection Following: None - Disposition Have Diagnosis and Disposition been Completed?: Yes Diagnosis: Renal insufficiency, Alcohol abuse, Head injury, Scalp laceration Disposition: HOSPITALIZED Disposition Time: 22:52 Patient Plan: Admission Patient Problems: Current Active Problems Problem Status Onset Alcohol abuse Acute Head injury Acute Renal insufficiency Acute Scalp laceration Acute Condition: FAIR
[2017-10-16 22:33] LABS: ACETAMINOPHEN < 10.0 ug/ml (10.0-20.0); BASO # 0.04 K/mm3 (0.0-2.0); BASO % 0.4 % (0.0-3.0); EOS % 0.1 % (1.5-5.0); GRAN # 7.96 (1.4-6.5); GRAN % 70.6 % (50.0-68.0); HEMOGLOBIN 14.4 g/dL (14.0-18.0); LYMPH # 2.5 (1.2-3.4); LYMPH % 21.8 % (22.0-35.0); MEAN CELL VOLUME 89.7 fl (80.0-105.0); MEAN CORPUSCULAR HEMOGLOBIN 32.4 pg (25.0-35.0); MEAN CORPUSCULAR HGB CONC 36.1 g/dl (31.0-37.0); MEAN PLATELET VOLUME 9.5 fl (7.0-11.0); MONO # 0.8 (0.1-0.6); MONO % 7.1 % (1.0-6.0); RBC 4.45 10^6/uL (3.5-6.1); RED CELL DISTRIBUTION WIDTH 14.2 % (11.5-14.5); SALICYLATE < 1 mg/dL (2.0-20.0); WHITE BLOOD COUNT 11.3 10^3/ul (4.5-11.0)
[2017-10-16 22:34] LABS: ALB/GLOB RATIO 1.5 (1.1-1.8); ALT/SGPT 40 U/L (7-56); AST/SGOT 45 U/L (17-59); BLOOD UREA NITROGEN 20 mg/dL (7-21); CALCIUM 8.2 mg/dL (8.4-10.5); GFR AFRICAN-AMERICAN 46; GFR NON-AFRICAN AMERICAN 38
[2017-10-16 22:36] LABS: INR 0.89 (0.93-1.08); PARTIAL THROMBOPLASTIN TIME 23.8 Seconds (25.1-36.5); PROTHROMBIN TIME 10.1 SECONDS (9.4-12.5)
[2017-10-16 22:46] LABS: TROPONIN I < 0.01 ng/mL
[2017-10-17] MEDS ORDERED: Bacitracin 500 Units/gm Oint Foilpak UD ONE (00:20)
[2017-10-17] MEDS: Sodium Chloride 0.9% 1,000 ML IV SCH ×2 (02:06→10:12)
--- NOTE | 2017-10-17 08:46 | CT ---
Date of service: 10/16/2017 PROCEDURE: CT HEAD WITHOUT CONTRAST. HISTORY: head injury, etoh COMPARISON: 08/16/2017. TECHNIQUE: Axial computed tomography images were obtained through the head/brain without intravenous contrast. Radiation dose: Total exam DLP = 955.89 mGy-cm. This CT exam was performed using one or more of the following dose reduction techniques: Automated exposure control, adjustment of the mA and/or kV according to patient size, and/or use of iterative reconstruction technique. FINDINGS: HEMORRHAGE: No intracranial hemorrhage. BRAIN: There is an old lacunar infarction in the anterior limb of the left internal capsule. There is an old infarction in the left posterior parietal lobe. There are mild chronic microangiopathic changes. There is no mass, mass effect or abnormal extra-axial fluid collection. VENTRICLES: There is mild age advanced global parenchymal volume loss and proportionate enlargement of the ventricles and cortical sulci. CALVARIUM: There is no calvarial fracture. There is a soft tissue defect in the right frontal extracranial soft tissues. PARANASAL SINUSES: Predominantly clear. MASTOID AIR CELLS: Predominantly clear. OTHER FINDINGS: None. IMPRESSION: No acute intracranial abnormality. Old lacunar infarction in the left anterior limb of the internal capsule and left posterior parietal lobe. Mild chronic microangiopathic changes and mild age advanced global parenchymal volume loss. At frontal soft tissue defect most compatible with laceration. No radiopaque foreign body. A preliminary report was provided by [employer].
--- NOTE | 2017-10-17 08:58 | RAD ---
Date of service: 10/16/2017 HISTORY: etoh COMPARISON: 08/16/2017. FINDINGS: LUNGS: The lungs are well inflated and clear. PLEURA: No significant pleural effusion identified, no pneumothorax apparent. CARDIOVASCULAR: Normal. OSSEOUS STRUCTURES: No significant abnormalities. VISUALIZED UPPER ABDOMEN: Normal. OTHER FINDINGS: None. IMPRESSION: No active pulmonary disease.
[2017-10-17] MEDS ORDERED: Sodium Chloride 0.9% 1,000 ML IV SCH (11:00)
[2017-10-17] MEDS: Venlafaxine 75 mg ER Cap PO SCH (11:02)
--- NOTE | 2017-10-17 12:15 | CARD ---
APPROVED REPORT Date of service: 10/16/2017 EKG Measurement Heart [id number] <Conclusion> Normal sinus rhythm Normal ECG
[2017-10-17] MEDS: Folic Acid 1 MG, Thiamine 100 MG, Multivitamin (MVI) 10 ML in Dextrose 5% In Water 1,00... IV SCH ×3 (12:46→22:42)
--- NOTE | 2017-10-17 18:47 | US ---
Date of service: 10/17/2017 PROCEDURE: Ultrasound of the Kidneys HISTORY: azotemia COMPARISON: None available. TECHNIQUE: Sonogram of the kidneys. FINDINGS: RIGHT KIDNEY: Measures: 4.8 x 11.4 cm. Normal in size, contour and echogenicity. No stone, solid mass lesion or hydronephrosis visualized. LEFT KIDNEY: Measures: 6 x 10.95 cm. Normal in size, contour and echogenicity. Echogenic foci within the mid lower pole regions likely small nonobstructing calculi. OTHER FINDINGS: None. IMPRESSION: Nonobstructing left renal calculi otherwise unremarkable study.
--- NOTE | 2017-10-17 21:04 | HP ---
DATE OF EXAM: 10/17/2017 HISTORY OF PRESENT ILLNESS: This 47-year-old male was examined at his bedside on the Cardiac Unit in the presence of nurse, Radha Montanez. The patient was admitted late last evening through the [facility] ER where he presented with altered mental status in the setting of alcohol intoxication. He was noted to have a right forehead laceration that was sutured in the emergency room and he was also noted to have acute renal failure. The patient was admitted for further evaluation of the above. According to the emergency room report, the patient was having multiple syncopal episodes at home earlier yesterday after binge drinking for the past five days. The patient when I spoke to him stated that he had been drinking, not eating, not drinking oral fluids and this is in the setting of a recent heat wave. The patient has multiple medical problems including a previous hospitalization for left internal capsule lacunar infarct. He has chronic hypertension, chronic anxiety neurosis, chronic recurrent depression, alcohol abuse and misuse, chronic alcoholism, history of smoking abuse and misuse, and history of marijuana use. The patient follows with Dr. Kline, PMD in [facility] and Dr. Brooks Lopez, Psychiatry. Outpatient medications have included Effexor 150 mg p.o. daily, Lopressor 25 mg p.o. b.i.d., Ecotrin 81 mg p.o. daily, Clonidine 1 mg p.o. b.i.d., Lipitor 20 mg p.o. daily, Neurontin 300 mg p.o. t.i.d. and Remeron 30 mg p.o. daily. When questioning the patient about his renal dysfunction, he states he has no knowledge of that in the past and states he was not drinking or urinating much in the past several days because of alcohol abuse and misuse. REVIEW OF SYSTEMS: CONSTITUTIONAL: He denied fever or chills. HEAD: Has a right forehead laceration that has been repaired. EYES: No change in visual acuity. EARS: No hearing loss. THROAT: No swallowing difficulty. NECK: No stiffness. CARDIAC: Chronic hypertension. PULMONARY: No hemoptysis. GASTROINTESTINAL: No hematemesis, no melena. GENITOURINARY: Acute renal failure. VASCULAR: No claudication. PSYCHOLOGICAL: Chronic anxiety, chronic depression. NEUROLOGICAL: Old stroke. SKIN: Without rash or ulceration. ENDOCRINOLOGICAL: Hyperlipidemia. Review of his EMR shows that approximately two months ago, he had a CT of the head with a finding of left internal capsule lacunar infarct. He had an MRI that was unremarkable for further stroke or hemorrhage. A 2D echocardiogram at that time was consistent with left ventricular hypertrophy secondary to chronic hypertension and carotid ultrasound showed 50% carotid artery stenosis. SOCIAL HISTORY: He is a persistent smoker, drinker and marijuana misuser. FAMILY HISTORY: Noncontributory at present. PHYSICAL EXAMINATION VITAL SIGNS: Temperature is 98.5, respirations 20, pulse 74, blood pressure 144/97, pulse ox 97% on room air. He is in normal sinus rhythm on digital experience manager. HEENT: Head: Normocephalic, atraumatic. Right forehead laceration with bandage clean and dry. Eyes: No icterus. Ears: Clear. Throat: noninjected. NECK: Supple. HEART: Regular S1 and S2. LUNGS: Clear. ABDOMEN: Soft. EXTREMITIES: No edema. SKIN: With multiple tattoos throughout. VASCULAR: Legs warm to touch. PSYCHOLOGICAL: Alert and oriented at present. NEUROLOGICAL: Grossly intact. LABORATORY DATA: White count of 11,300, hemoglobin 14.4, hematocrit 39.9, platelets 226,000. PT/INR 0.89, PTT 23.8. Sodium 133, K 4.1, chloride 97, bicarb 20, BUN 20, creatinine 1.9, random blood sugar 94. Estimated GFR 38 mL per minute. Bilirubin 0.4, AST 45, ALT 40, alkaline phosphatase 77. LDH 481, CPK 93, troponin less than 0.01. Blood alcohol level on admission was 326. Chest x-ray from the emergency room dated 10/16/2017 was reviewed. It showed the lungs inflated, clear of infiltrate, no effusion, no pneumothorax, no pulmonary infiltrates, no evidence of congestive heart failure. Head CT performed in the [facility] ER was reviewed. It showed no acute intracranial abnormalities. There is evidence of an old lacunar infarct in his left anterior limb of the internal capsule and the left posterior parietal lobe. He was noted to have a soft tissue defect consistent with a laceration. EKG reportedly showed normal sinus rhythm. IMPRESSION: A 47-year-old male with acute on chronic alcoholism, alcohol abuse and misuse, old stroke, chronic hypertension, chronic anxiety neurosis, chronic recurrent depression, history of smoking, marijuana misuse and abuse, hyperlipidemia, now admitted with acute renal failure, estimated GFR approximately 38 mL per minute at present. PLAN: The plan as discussed with the patient and nursing will be to continue to hydrate this patient with D5W and banana bag additives including folic acid 1 mg per liter, thiamine 100 mg per liter, and multivitamin 10 mL per liter. He will continue on Ativan 2 mg IV every 2 hours p.r.n. severe agitation, clonidine 0.1 mg p.o. every 4 hour p.r.n. accelerated hypertension if systolic blood pressure is greater than 160 or diastolic blood pressure is greater than 100, clonidine 0.1 mg p.o. b.i.d. will be scheduled, Ecotrin 81 mg p.o. daily, Effexor 150 mg p.o. daily, Librium 25 mg p.o. every 8 hours p.r.n. agitation, Lipitor 20 mg p.o. at dinnertime, Neurontin 300 mg p.o. t.i.d., Remeron 30 mg p.o. at bedtime, Nicoderm 14 mg smoking patch daily, Tylenol 650 p.o. every 6 hours p.r.n. pain or temperature greater than 101 and Zofran 4 mg IV every 6 hours p.r.n. nausea and vomiting. He remains on the Cardiac Unit. He is ordered to have a heart-healthy low-sodium diet. I have ordered a renal ultrasound and consultation with Dr. Wilson from Psychiatry. He will have a basic metabolic panel repeated in the a.m. Based on his clinical progress, additional diagnostic testing and workup will be entertained. Greater than sixty minutes was spent in the care of this patient today, All of the above was discussed in detail with the patient, nursing and all questions were answered. Eva Munguia MD MTDD
--- NOTE | 2017-10-18 03:35 | CON ---
DATE: 10/17/2017 IDENTIFYING INFORMATION: The patient is a 47-year-old white male, who presented to the emergency room in an intoxicated state after having fallen and hitting his head at his sister's home. HISTORY OF PRESENT ILLNESS: The patient, who appears to be very anxious, has a long history of alcohol use disorder, and reported anxiety and depression. I have previously interacted with the patient in 07/2017. At that time, he had been complaining of numbness in his right hand fingers and face along with tingling of approximately 3 weeks' duration, and initially he was unable to pronounce his words correctly. The patient apparently has a long history of hypertension and been treated with clonidine for this. He is presently living with a nearby sister after undergoing now a divorce after 8 years of marriage to his 40-year-old . He indicated this is because they had irreconcilable differences, it is his idea to leave and he is okay with this. The patient started drinking in his pains and is noted to be always anxious. He informed me that he had been under the care of a psychiatrist in [place], Dr. Machado, for approximately 9 years, but found this too difficult to go to. Dr. Machado treated him for depression with Effexor, Remeron, and clonidine. He indicated it was Dr. Machado's suggestion that he make life easier for himself and see a nearby psychiatrist. As such for the past 2 months, he indicates he has been under the care of Dr. Brooks Lopez who has maintained him on Effexor, clonidine, and Remeron. He indicates that he had been hospitalized a number of years ago with [facility] for depression, anxiety, and alcohol use, and was hospitalized for 2 weeks, subsequent to which he went to a rehab program in [place] which he did not like and then went to a facility in [place]. The patient indicates he has always been anxious. He is a [place] of [place] and a high school graduate. 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 The patient has 2 other sisters, one who lives in [place], [place] ([place]), and another also at some distance. The sister that he lives with, requires his attention because she is recuperating from a broken hip. He is the youngest of his parents' 5 children with he having 4 sisters, one of which has both an anxiety disorder and an alcohol use disorder. His parents were when he was 4 years old, and he did not have much to do with his father. His mother in 1997 after the heart surgery and his father of heart disease in 2001. The patient had indicated in the past that he has tried to palliate his anxiety with alcohol, the excessive use of which started in his teens. At my previous interaction with him, he told me not only about the [place] hospitalization, but 2 other hospitalizations at [facility] in 2016 (which he omitted presently - which reinforces my concern that the patient is a somewhat vague or guarded historian presently). Computer review indicated that the patient has made a number of hospital appearances including 07/2014 for dizziness and body ache, 04/2015 for anxiety, 09/2015 for anxiety, and 12/2015 for "possible seizure" and for alcohol dependence and bipolar disorder. He was in [place] [facility] in 07/2016 for alcohol abuse as well as in 12/2016. In 03/2017, he was treated here for alcohol withdrawal. In 05/2017, he did undergo a crisis evaluation due to suicidality and also in 07/2017 for alcohol withdrawal and hypokalemia. A 04/2017 consultation noted that he had been drinking for 4 straight weeks and then tried to stop. This all underscores my concern that the patient is a vague, guarded and probably inaccurate historian. Furthermore, the patient had yawned excessively during my evaluation of him; a symptom that could be a symptom of opiate withdrawal although the patient denies this. The patient indicates he also has a social anxiety disorder. Presently, the patient's CBC shows an elevated white count of 11.3. A biochemical profile shows elevated creatinine of 1.9, lower calcium 8.2. A drug screen showed a blood alcohol level of 326 on admission. The patient is presently being medicated with Ativan p.r.n., clonidine 0.1 mg b.i.d., Effexor 150 mg XR, Librium 25 every 8 hour p.r.n. (along with Ativan 2 mg IV push every 2 hours p.r.n.). He also takes Lipitor, Neurontin 300 mg t.i.d., and Remeron 30 mg at bedtime (as the patient is on 3 different medications that may palliate his alcohol withdrawal). DIAGNOSES: Alcohol use disorder, reported social anxiety disorder, anxiety disorder not otherwise specified. My sense is that there are other dimensions to this patient's psychosocial status that he is not talking about. We will discuss further with you. Thank you, as always, for this consultation. Rick Wilson MD/ PhD
[2017-10-18 07:26] LABS: BLOOD UREA NITROGEN 11 mg/dL (7-21); CALCIUM 8.6 mg/dL (8.4-10.5); GFR AFRICAN-AMERICAN > 60; GFR NON-AFRICAN AMERICAN > 60
[2017-10-18] MEDS: Folic Acid 1 MG, Thiamine 100 MG, Multivitamin (MVI) 10 ML in Dextrose 5% In Water 1,00... IV SCH ×3 (10:09→22:46)
[2017-10-18] MEDS: Venlafaxine 75 mg ER Cap PO SCH (10:13)
[2017-10-18] MEDS: Potassium Chloride 20 mEq ER Tab PO SCH ×2 (11:21→17:50)
--- NOTE | 2017-10-18 13:05 | PN ---
DATE: 10/18/2017 SUBJECTIVE: This 47-year-old male was examined on the cardiac burnham in the presence of his nurse, Baylee Meadows, registered nurse. The patient was seen earlier by Dr. Wilson. At present, he is alert and conversant, but experiencing alcohol withdrawal symptoms and remains highly anxious. He is in a normal sinus rhythm on the bus driver/monitor and denies any fever, chills, chest pain or shortness of breath. PHYSICAL EXAMINATION: VITAL SIGNS: His temperature is 99.4, respirations 20, pulse 108 and blood pressure 159/89 with a pulse ox of 98% on room air. HEENT: Head: Normocephalic, atraumatic. Eyes: No icterus. Ears: Clear. Throat: Noninjected. NECK: Supple. HEART: Regular S1, S2. LUNGS: Have occasional rhonchi that clear with coughing. ABDOMEN: Soft. EXTREMITIES: No edema. SKIN: No ulcers. VASCULAR: Legs warm to touch. PSYCHOLOGICAL: Alert, but highly anxious. NEUROLOGIC: Grossly intact. LABORATORY DATA: White count 11,300, hemoglobin 14.4, hematocrit 39.9, platelets 226,000. Sodium 134, K 3.1, chloride 98, bicarb 26, BUN 11, creatinine 0.8, previously BUN 20 and creatinine 1.9, random blood glucose 108, calcium 8.6. Renal ultrasound was reviewed. It shows no evidence of obstruction, no mass, no hydronephrosis and a nonobstructing left renal stone. IMPRESSION: A 47-year-old male with acute alcohol withdrawal syndrome, alcoholic delirium, chronic alcoholism, chronic alcohol abuse and misuse, chronic smoking syndrome, chronic hypertension, noncompliance with medication and medical followup in his past, also with chronic recurrent depression, now with hypokalemia and status post azotemia secondary to dehydration prior to admission. Also with history of old stroke, hyperlipidemia and peripheral neuropathy. PLAN: As discussed with the patient, nursing, Dr. Wilson from Psychiatry will be to continue Ativan 2 mg IV every 2 hours p.r.n. severe agitation, clonidine will be increased to 0.2 mg p.o. b.i.d. with additional clonidine of 0.1 mg p.o. every 4 hours p.r.n. accelerated hypertension, if systolic blood pressure is greater than 160 or diastolic blood pressure is greater than 100. He continues on Ecotrin 81 mg p.o. daily, Effexor XR extend release 150 mg p.o. daily. He is receiving IV fluids of D5W with folic acid 1 mg, thiamine 100 mg and multivitamin 10 mL/liter at 70 mL/hour. He will be receiving K-Dur 20 mEq p.o. b.i.d. for the next 48 hours while monitoring his basic metabolic panel. He will receive Librium 25 mg p.o. every 8 hours p.r.n. alcohol withdrawal, Lipitor 20 mg p.o. at bedtime, Neurontin 300 mg p.o. t.i.d., Nicoderm smoking patch 14 mg daily, Remeron 30 mg p.o. at bedtime, Tylenol 650 p.o. every 6 hours p.r.n. pain or temperature greater than 101 and Zofran 4 mg IV every 6 hours p.r.n. nausea and vomiting. He remains on neuro checks, fall precautions, heart-healthy diet and has been ordered out of bed to chair and to bathroom with assistance. Greater than 35 minutes was spent in the care management, review of labs, orders, x-rays, outlining of medication and treatment for this patient today in the presence of his nurse. All questions were answered. Eva Munguia MD MTDD
[2017-10-19 06:43] LABS: BLOOD UREA NITROGEN 12 mg/dL (7-21); CALCIUM 8.6 mg/dL (8.4-10.5); GFR AFRICAN-AMERICAN > 60; GFR NON-AFRICAN AMERICAN > 60
[2017-10-19] MEDS: Potassium Chloride 20 mEq ER Tab PO SCH ×2 (09:24→17:54)
[2017-10-19] MEDS: Venlafaxine 75 mg ER Cap PO SCH (09:24)
[2017-10-20] MEDS: Folic Acid 1 MG, Thiamine 100 MG, Multivitamin (MVI) 10 ML in Dextrose 5% In Water 1,00... IV SCH (00:08)
[2017-10-20] MEDS: Venlafaxine 75 mg ER Cap PO SCH (09:01)
[2017-10-20] MEDS: Potassium Chloride 20 mEq ER Tab PO SCH (09:01)
[2017-10-21 06:10] VITALS: RESP 20; O2SAT 95
[2017-10-21] MEDS: Venlafaxine 75 mg ER Cap PO SCH (10:00)
[2017-10-21 13:01] VITALS: TEMP 98.4
[2017-10-21 13:13] VITALS: BP 130/95
--- NOTE | 2017-10-21 13:28 | PN ---
DATE: 10/19/2017 SUBJECTIVE: This 47-year-old male was examined on the cardiac burnham. His case was reviewed in detail with himself and nursing. The patient is still experiencing acute alcohol withdrawal syndrome as well as extreme anxiety, recurrent depression and uncontrolled hypertension. The patient at present denies any chest pain or shortness of breath. He remains in a normal sinus rhythm on the bus driver/monitor. PHYSICAL EXAMINATION: VITAL SIGNS: Temperature 97.9, respirations 18, pulse 75, blood pressure 168/100. HEENT: Head is normocephalic, atraumatic. Eyes: No icterus. Ears: Clear. Throat noninjected. NECK: Supple. HEART: Regular S1, S2. LUNGS: Clear. ABDOMEN: Soft. EXTREMITIES: No edema. SKIN: No ulcers. VASCULAR: Legs warm to touch. PSYCHOLOGICAL: Extreme anxiety and tremulousness. NEURO: Tremulousness and forgetfulness. LABORATORY DATA: Labs show sodium 136, K 3.7, chloride 99, bicarb 29, BUN 12, creatinine 0.8, random blood sugar was 97. White count 11,300, hemoglobin 14.4, hematocrit 39.9, platelets 226,000. IMPRESSION: A 47-year-old male with acute alcohol withdrawal syndrome, history of chronic alcoholism, history of chronic anxiety, recurrent depression, accelerated hypertension, history of old stroke, hyperlipidemia and chronic smoking syndrome. PLAN: The plan at present is to continue Ativan 2 mg IV every 2 hours p.r.n. extreme anxiety. He will continue to receive clonidine 0.2 mg p.o. b.i.d., increased from 0.1 mg p.o. b.i.d. as well as 0.1 mg p.o. every 4 hours p.r.n. accelerated hypertension if his systolic blood pressure is greater than 160 or his diastolic blood pressure is greater than 100; Ecotrin 81 mg p.o. daily; Effexor XR 150 mg p.o. daily; Librium 25 mg p.o. every 8 hours p.r.n. alcohol withdrawal syndrome; Lipitor 20 mg at dinnertime; Neurontin 300 mg p.o. t.i.d.; Nicoderm smoking patch 14 mg daily; Remeron 30 mg p.o. at bedtime. The patient requires continued hospitalization given his accelerated hypertension, anxiety and alcohol withdrawal issues including tremulousness. All of this was reviewed in detail at his bedside with the patient and nursing. All questions were answered. Eva Munguia MD JENI
--- NOTE | 2017-10-21 13:39 | PN ---
DATE: 10/20/2017 SUBJECTIVE: This 47-year-old male remains hospitalized on the cardiac unit at the [facility]. He has multiple medical issues including acute alcohol withdrawal syndrome, continued accelerated hypertension, extreme anxiety, recurrent depression and was admitted with acute renal insufficiency in the setting of severe dehydration. At present, the patient is denying fever, chills, chest pain or shortness of breath, but does continue to have accelerated hypertension. PHYSICAL EXAMINATION: VITAL SIGNS: On physical exam, he remains in a normal sinus rhythm on the personnel monitor. Temperature 97.8, respirations 18, pulse 73 and blood pressure 145/95, earlier 171/88. HEENT: Head: Normocephalic, atraumatic. Eyes: No icterus. Ears: Clear. Throat: Noninjected. NECK: Supple. HEART: Regular S1, S2. LUNGS: Clear. ABDOMEN: Soft. EXTREMITIES: No edema. SKIN: Without rash. NEUROLOGICAL: Extremely tremulous and anxious. VASCULAR: Legs warm to touch. PSYCHOLOGICAL: Alert. NEURO: Intact, but tremulous. LABORATORY DATA: Sodium 136, K 3.7, chloride 99, bicarb 29, BUN 11, creatinine 0.8, random blood sugar 97. IMPRESSION: A 47-year-old male with acute alcohol withdrawal syndrome, accelerated hypertension secondary to noncompliance with outpatient medications including beta brenda and clonidine, now being reinstituted and adjusted, also with history of chronic recurrent depression, extreme anxiety, hyperlipidemia and history of old stroke. PLAN: Given all of the above, the patient requires continued hospitalization while I am adjusting his medication including today, he will have his clonidine increased to 0.3 mg p.o. b.i.d. along with clonidine 0.1 mg p.o. every 4 hours p.r.n. accelerated hypertension if systolic blood pressure is greater than 160 or diastolic blood pressure is greater than 100. He continues on Ecotrin 81 mg p.o. daily, Effexor 150 mg p.o. daily, Inderal 20 mg p.o. t.i.d., Librium 25 mg p.o. every 8 hours p.r.n. acute alcohol withdrawal issues, Lipitor 20 mg p.o. at dinnertime, Neurontin 300 mg p.o. t.i.d., Nicoderm smoking patch 14 mg daily, Remeron 30 mg p.o. at bedtime. Once the patient's blood pressure has stabilized and he is able to ambulate independently, he will be discharged to home to the care of his personal psychiatrist and paint spray inspector and all of the above was reviewed in detail with the patient, nursing. All questions were answered. Eva Munguia MD MTDD
[2017-10-21 14:40] VITALS: PULSE 83
[2017-10-21] MEDS ORDERED: Bacitracin 500 Units/gm Oint Foilpak UD TOP ONE (16:07)
--- NOTE | 2017-10-21 20:30 | DS ---
DATE OF EXAM: 10/21/2017 FINAL DIAGNOSES: Acute alcohol withdrawal syndrome; accelerated hypertension, now improved; chronic hypertension; chronic anxiety; hyperlipidemia; recurrent depression; history of old stroke; history of recent fall with a right forehead laceration which was sutured in the emergency room. DISPOSITION: Home. The patient to follow up with PMD, Dr. Phipps within 48 hours to have him remove forehead sutures. The patient was instructed to clean his forehead wound with mild soap and water, pat dry and apply bacitracin and a Band-Aid daily. DISCHARGE MEDICATIONS: Will include Remeron 30 mg p.o. at bedtime, Lopressor 50 mg p.o. b.i.d., Neurontin 300 mg p.o. t.i.d., Ecotrin 81 mg p.o. daily, clonidine 0.1 mg p.o. b.i.d., Effexor 150 mg p.o. daily, Lipitor 20 mg p.o. daily and Nicoderm 14 mg patch to skin daily. SUMMARY: This 47-year-old male who was admitted with alcohol intoxication withdrawal syndrome and status post fall and a right forehead laceration, was admitted to the cardiac unit where he was detoxed, treated with oral antihypertensives, and parenteral Ativan for anxiety and alcohol tremulous withdrawal syndrome. At the time of discharge, temperature was 98.4, respirations 20, pulse 83, and blood pressure 130/95. The patient was instructed on wound management. DISCHARGE LABORATORY DATA: White count 11,300, hemoglobin 14.4, hematocrit 39.9, and platelets 226,000. PT/INR 0.89, PTT 23.8. Sodium 136, K 3.7, chloride 99, bicarb 29. BUN 12, creatinine 0.8. Random blood sugar 97. Bilirubin 0.4, AST 45, ALT 40, and alk phos 77. The patient had a renal ultrasound that was unremarkable. Chest x-ray that showed no infiltrate and head CT that showed no hemorrhage. The patient was instructed regarding his discharge management with nurse, Baylee Meadows present. All questions were answered. Hopefully, the patient will be compliant with cessation of smoking and drinking and was recommended to attend AA meetings. Eva Munguia MD [facility] # [id number] MTDD
== END 2017-10-21 17:30 | disposition home or self-care (01) | DRG 897 ==
LOC: ED 21:03 → ERH 23:26 → 2RNO 10-17 01:06
PROVIDERS: ADMIT Internal Medicine; ATTEND Internal Medicine
PROC: 0HQ0XZZ Repair Scalp Skin, External Approach (ICD-10-PCS; principal; 2017-10-16)
DX: F10.239 Alcohol dependence with withdrawal, unspecified (principal); N17.9 Acute kidney failure, unspecified; F33.9 Major depressive disorder, recurrent, unspecified; S01.01XA Laceration without foreign body of scalp, initial encounter; F10.229 Alcohol dependence with intoxication, unspecified; E86.0 Dehydration; E87.6 Hypokalemia; I10 Essential (primary) hypertension; F12.90 Cannabis use, unspecified, uncomplicated; E78.5 Hyperlipidemia, unspecified; F41.1 Generalized anxiety disorder; G62.9 Polyneuropathy, unspecified; F17.200 Nicotine dependence, unspecified, uncomplicated; Y90.8 Blood alcohol level of 240 mg/100 ml or more; W19.XXXA Unspecified fall, initial encounter; Z91.14 Patient's other noncompliance with medication regimen; Z86.73 Personal history of transient ischemic attack (TIA), and cerebral infarction without residual deficits